=== PATIENT | female | born 1945 | race Caucasian/White ===

== ENCOUNTER → 2016-04-15 | Day surgery (SDC) | payer MEDICARE ==
--- NOTE | 2016-04-07 20:51 | HP ---
CC: Dr. Haroldo MD at [facility] and to [facility] PREOPERATIVE HISTORY AND PHYSICAL: DATE OF PREOPERATIVE HISTORY AND PHYSICAL EXAMINATION: 04/06/16 DATE OF ADMISSION: This patient is scheduled for Same-Day Surgery admission by Dr. Zarco on , 04/15/16. ATTENDING SURGEON: Girma Zarco MD (dictated by Zenia Velazquez NP) CHIEF COMPLAINT: Umbilical hernia. HISTORY OF PRESENT ILLNESS: The patient is a 70-year-old female referred to Dr. Zarco from [facility] for evaluation of an umbilical hernia. The patient states that she first notice d discomfort in the umbilical region when she was leaning against her kitchen counter. It has becom e increasingly painful, but she denies any signs or symptoms to suggest incarceration or strangulati on. She denies any chronic constipation or trauma to the umbilical region. Dr. Zarco examined the patient and notes an obvious umbilical hernia approximately 2 to 3 cm in diameter that is soft and reducible and mildly tender. Dr. Zarco has recommended open repair of the umbilical hernia with me as a Same-Day Surgery procedure and has discussed the nature of the surgical procedure, the relev ant risks, benefits, and alternatives, and today I reviewed the expected the postoperative care and recovery. The patient has had a chance to ask questions and stated that she understands the informa tion and is satisfied with the answers given to her questions. She will sign surgical consent on day of surgery. PAST MEDICAL HISTORY: Significant for obesity, type 2 diabetes, iron-deficiency anemia, left breast cancer, essential tremor, gastroesophageal reflux disease, anxiety, hyperlipidemia, and hypothyroid ism. PAST SURGICAL HISTORY: Total abdominal hysterectomy, bilateral salpingo- oophorectomy in 1993; left breast lumpectomy, wide local excision with sentinel lymph node biopsy for left breast cancer [address] Zarco, treated with radiation therapy; and excisional debridement of left breast infection and 2010. MEDICATIONS: 1. Metformin 1000 mg p.o. daily in the morning. 2. Lisinopril 5 mg p.o. daily. 3. Fluoxetine 40 mg p.o. daily. 4. Pravastatin 80 mg one-half tablet p.o. daily. 5. Poly-Iron supplement 150 mg p.o. daily. 6. Vitamin D2 2000 international units daily. 7. Furosemide 20 mg one-half tablet p.o. daily. 8. Levothroid 50 mcg p.o. daily. 9. Xanax 0.5 mg b.i.d. p.r.n. She typically takes it once a day. 10. Primidone 250 mg p.o. daily. 11. Multivitamin p.o. daily. 12. Glucosamine and chondroitin supplement daily and fish oil supplement daily, calcium plus vitami n D supplement daily. ALLERGIES: PENICILLIN has caused swelling. FAMILY HISTORY: No known anesthesia complications, bleeding tendencies, or clotting disorders. SOCIAL HISTORY: She is . 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 She is a nonsmoker. She denies the use of alcohol or other substances. REVIEW OF SYSTEMS: She denies any history of myocardial infarction. She denies any chest pain, pre ssure or palpitations. She was experiencing edema of the lower extremities, which has responded wel l to furosemide. She denies any unusual shortness of breath. She denies any history of deep vein t hrombosis or pulmonary embolism. She denies any previous anesthesia complications. She denies any bleeding tendencies and has never received a blood transfusion. She denies any chronic constipation . She denies any dysuria. PHYSICAL EXAMINATION GENERAL SURVEY: The patient is a 70-year-old obese female, in no acute distress. VITAL SIGNS: Height 64 inches, weight 260 pounds, blood pressure 138/82, pulse 80 and regular, resp iratory rate 20, and temperature 98.6 tympanic. HEENT: Benign. NECK: Supple. No cervical lymphadenopathy. No carotid bruits. LUNGS: Breath sounds bilaterally clear and equal. HEART: Regular rate and rhythm. No murmurs or rubs appreciated. ABDOMEN: Obese. Active bowel sounds. Soft and nondistended. Obvious supraumbilical hernia, reduc ible in the supine position. Soft and mildly tender. Approximately 2 to 3 cm defect. No other obvi ous masses or organomegaly, but exam is limited by body habitus. EXTREMITIES: Warm without edema or skin ulceration. BACK: No CVA tenderness. PELVIC AND RECTAL: Exams deferred. NEUROLOGIC: Alert and oriented x3. Steady gait. SKIN: Warm, dry, and intact. IMPRESSION: Umbilical hernia. PLAN: Same-Day Surgery admission to Dr. Zarco's service on , 04/15/16 for open umbilical h ernia repair with mesh. ZENIA VELAZQUEZ, TOLL MECHANIC [id number]/[facility] #: [id number]
[~2016-04-15] MED LIST: Buffered Lidocaine 1% SYR 3ML* 3 ML/SYR SYRINGE INTRADERM ONE; Buffered Lidocaine 1% SYR 3ML* 3 ML/SYR SYRINGE ONE; Bupivacaine 0.5% W/EPI SDV* 30 ML VIAL ONE; Clindamycin 900 MG IVPREMIX(* 900 MG/50 ML SDV IV ONE; Ketorolac INJ* 30 MG/ML 1 ML VIAL IV PUSH PRN; Lidocaine 1% INJ* 10 MG/ML 30 ML SDV ONE; Midazolam* 1 MG/ML 2 ML VIAL (2 MG) ONE; Ondansetron INJ* 2 MG/ML VIAL IV PRN; fentaNYL* 50 MCG/ML 2 ML VIAL (100 MCG VIAL) ONE; oxyCODONE/Acetamin 5/325 MG* TAB PO PRN
[2016-04-15 15:28] VITALS: BP 143/67
--- NOTE | 2016-04-15 21:11 | CONS ---
CONSULTATION REPORT: DATE OF CONSULT: 04/15/16 PRIMARY CARE PHYSICIAN: Dr. Kulkarni. PHYSICIAN REQUESTING CONSULTATION: Dr. Zarco. REASON FOR CONSULTATION: Postoperative near syncope. CHIEF COMPLAINT: Weakness. HISTORY OF PRESENT ILLNESS: Mrs. Stovall is a 70-year-old female status post local anesthesia with general anesthesia including Versed and fentanyl for umbilical hernia repair performed by Dr. Zarco today. The patient's surgeon stated that the patient received a dose of 4 mg of IV Versed and 100 mcg of fentanyl total as well as local anesthesia for the hernia repair. She did very well intraoperatively and postoperatively. Postoperatively, she also was not markedly sedated but when she stood up and attempted to go to the bathroom, she felt weak and she felt like her "eyes are rolling back." As per the report that I got from Dr. Zarco and the nursing staff in PACU, the patient's orthostatic blood pressure was unremarkable and the patient did not have orthostatic hypotension and I do not have the specific numbers recorded. I am seeing the patient in regards to this episode of near syncope. The patient stated that she just feels generalized weakness and felt like lying down. She denied localized weakness. Her speech had been clear. She denies any chest pain or shortness of breath. She did not lose consciousness. PAST MEDICAL HISTORY: 1. History of obesity with a BMI of 41. 2. Diabetes type 2. 3. Iron deficiency anemia. 4. History of left breast cancer status post lumpectomy and radiation treatment under the care of Dr. George. 5. History of essential tremor. 6. Anxiety. 7. Gastroesophageal reflux disease. 8. Hyperlipidemia. 9. Hypothyroidism. 10. History of total abdominal hysterectomy and bilateral salpingo- oophorectomy. MEDICATIONS: Prior to the patient's surgery included, 1. Metformin 1000 mcg daily. 2. Lisinopril 5 mg daily. 3. Fluoxetine 40 mg daily. 4. Pravastatin 80 mg daily. 5. Iron supplement 160 mg daily. 6. Vitamin D3 at 2000 units daily. 7. Furosemide 20 mg, the patient takes half of a tablet, which is 10 mg daily. 8. Levothyroxine 50 mcg daily. 9. Xanax 0.5 mg b.i.d. p.r.n. 10. Primidone 250 mg daily. 11. Multivitamin 1 tablet daily. 12. Glucosamine with chondroitin daily. ALLERGIES: PENICILLIN caused "swelling." FAMILY HISTORY: Reviewed and noncontributory. SOCIAL HISTORY: The patient denies any tobacco, alcohol, or drug use. She lives with her who is her surrogate. 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 REVIEW OF SYSTEMS: The patient denies any pain. She feels that her head is "heavy." She denies weakness. The patient denies any chest pain or shortness of breath. All of the remaining 14 systems were reviewed with the patient and were otherwise negative. PHYSICAL EXAMINATION: Vital Signs: Blood pressure 155/66, heart rate of 61 and regular, respiratory rate 16, oxygen saturation is 100% on 2 L oxygen nasal cannula, temperature 96.8. General: The patient is a very pleasant 70-year- old female who is obese. The patient is in no acute distress. The patient is alert and oriented x3. She occasionally drifts off to sleep. HEENT: Head: Atraumatic, normocephalic. Eyes: Pupils are equal and reactive to light and accommodation. Oropharynx is clear. Mucosa moist. Neck: Supple, no JVD, no bruits bilaterally. Respiratory: Clear to auscultation bilaterally. Cardiovascular: Regular rate and rhythm, no murmur. Abdomen: Soft and nontender. Bowel sounds are present in all 4 quadrants. Midline incision was not evaluated. There was a dressing of a approximately 4 x 4 inches in the area. The patient also wears a binder that was removed for the evaluation. Extremities: There is trace pedal edema. Pulses +2 bilaterally. There is no clubbing or cyanosis. Psychiatric: The patient appears slightly sedated. No evidence of anxiety or depression. Neurological: Speech clear. Cranial nerves II through XII are grossly intact. Motor strength is 5/5 bilaterally. [id number] is not dysmetric and within normal limits bilaterally. I did not check ambulation during the patient's evaluation. LABORATORY/DIAGNOSTIC DATA: Available to me from today, none. EKG reviewed by myself showed sinus bradycardia with heart rate 66 beats per minute with normal axis. No ST changes. That was compared to the EKG from the end of March 2016, which apart from sinus bradycardia does not have any marked new abnormalities noted. ASSESSMENT AND PLAN: Mrs. Stovall is a 70-year-old female who received Versed and fentanyl preoperatively. Currently, she had an episode of near syncope approximately an hour prior to my evaluation. She appears still slightly sedated and I suspect that her near syncope was related to the effect of her anesthesia medications. There is no evidence of focal weakness to suggest a stroke. She does have slight sinus bradycardia but her systolic pressures had been in a good range. Otherwise, she is hemodynamically stable and she has not been complaining of chest pain or shortness of breath to suggest that any further cardiac evaluation is needed. I discussed the case with Dr. Zarco, the patient's surgeon. On the basis of available data, I suspect that the patient's near syncope is related to anesthesia. I asked Dr. Zarco to call back our service if any other questions appear or problems arise. CC: Dr. Zarco; Dr. Kulkarni* [id number]/[facility] #: [id number] [facility]
--- NOTE | 2016-04-16 07:18 | OP ---
CC: Girma Zarco MD; Dr. Mariusz Kulkarni OPERATIVE REPORT: DATE OF OPERATION: 04/15/16 DATE OF : 49 SURGEON: Girma Zarco MD PROP CUTTER: DAYANA Kimball ANESTHESIOLOGIST: Dr. Pearson. ANESTHESIA: LMAC anesthesia. PRE-OP DIAGNOSIS: Supraumbilical ventral hernia. POST-OP DIAGNOSIS: Supraumbilical ventral hernia. OPERATIVE PROCEDURE: Open repair of supraumbilical ventral hernia with mesh. DESCRIPTION OF PROCEDURE: The patient was supine on the operating room table. After adequate intrav enous sedation, compression stockings, Noah Hugger warmer, and intravenous antibiotics, the abdomen was prepped with antiseptic and draped in a sterile fashion. Supraumbilical incision was created ap proximately 5 cm in length and a hernia of about 4 to 5 cm was identified. This went down to a neck of about 2 cm. I actually had to expand the fascial defect to about 3 cm to get the hernia reduced . The preperitoneal plane was then well developed. The previous umbilical hernia repair was intact . Sutures were identified in that site. A 6.4 cm underlay patch was put into place and sutured up underneath using 6 sutures of 0 Vicryl. The fascia was then closed over top. Adipose was reapproxim ated with 3-0 Vicryl and skin with 5-0 Vicryl followed by Steri-Strips. She tolerated the procedure well, was brought to Recovery in good condition. No complications. No drains. No pathologic spec imens. Sponge and instrument counts correct. ESTIMATED BLOOD LOSS: 10 mL. [id number]/[facility] #: [id number]
== END | disposition home or self-care (01) ==
LOC: OR 08:38
PROVIDERS: ATTEND Surgery
DX: K43.9 Ventral hernia without obstruction or gangrene (principal); E66.9 Obesity, unspecified; K21.9 Gastro-esophageal reflux disease without esophagitis; E11.9 Type 2 diabetes mellitus without complications; F41.9 Anxiety disorder, unspecified; Z88.0 Allergy status to penicillin; R00.1 Bradycardia, unspecified; Z68.41 Body mass index [BMI] 40.0-44.9, adult; D50.9 Iron deficiency anemia, unspecified; Z85.3 Personal history of malignant neoplasm of breast; E78.5 Hyperlipidemia, unspecified; E03.9 Hypothyroidism, unspecified; Z79.84 Long term (current) use of oral hypoglycemic drugs
CPT/HCPCS: 93005; C1781; J2250; J3010

== ENCOUNTER 2016-07-01 20:35 | Observation (INO) | payer MEDICARE ==
[2016-07-01] MEDS ORDERED: Aspirin Low Dose CHEW TAB* 81 MG PO ONE (21:36)
[2016-07-01] MEDS ORDERED: Nitroglycerin TAB 0.4 MG* 0.4 MG TAB SL ONE (21:38)
--- NOTE | 2016-07-01 22:21 | RAD ---
Indication: Chest pain. Single frontal view of the chest performed at 2208 hours was reviewed. Comparison is made with previous exam dated . No mediastinal shift is noted. Heart is of normal size and configuration. Lung pizarro appear clear. IMPRESSION: NO ACTIVE CARDIOPULMONARY DISEASE IS NOTED.
[2016-07-01 22:36] LABS: Hematocrit 37 % (35-47); Hemoglobin 12.1 g/dl (12.0-16.0); Mean Corpuscular HGB Conc 33 g/dl (31-36); Mean Corpuscular Hemoglobin 30 pg (27-31); Mean Corpuscular Volume 92 fL (80-97); Mean Platelet Volume 8 um3 (7.4-10.4); Red Blood Count 3.97 10^6/ul (4.0-5.4); Red Cell Distribution Width 15 % (10.5-15); White Blood Count 6.1 10^3/ul (3.5-10.8)
[2016-07-01 22:45] LABS: Albumin 3.8 g/dL (3.2-5.2); BUN/Creatinine Ratio 15.2 (8-20); Calcium 9.2 mg/dL (8.6-10.3); EGFR African American 93.1 (>60); EGFR Non-African American 72.4 (>60); Globulin 3.2 g/dL (2-4); Potassium 3.8 mmol/L (3.5-5.0); Total Bilirubin 0.2 mg/dL (0.2-1.0)
[2016-07-01 22:47] LABS: Troponin I 0.01 ng/mL (<0.04)
[2016-07-01] MEDS ORDERED: Nitroglycerin 0.4 MG/HR PATCH* (10 MG) TRANSDERM ONE (23:04)
--- NOTE | 2016-07-01 23:15 | HP ---
H&P (Free Text) History and Physical: PCP: Nick Kulkarni MD Date/Time of Evaluation: 07/01/2016 5303 CC: chest pain HPI: Mrs Stovall is a 70YO morbidly obese female HX breast CA, DM2, HTN, & HLD who developed non-exertional, non-radiating dull substernal chest discomfort for lasting 2 hours last night before spontaneously subsiding. There was no SOB, sweating, emesis, palpitations, or light-headedness associated. She has had issues lately with nausea, but no worsening. She was seen by her PCP today for a routine diabetic check up who when hearing this advised her to present to the ED for further evaluation. She states she has been having pain in her R bruce since Tuesday which she attributed to new shoes, but denies any change in swelling. ED evaluation is essentially negative. PMedHx DM2 breast CA HLD morbid obesity hypothyroidism iron deficiency anemia essential tremor GERD Allergies Penicillins Allergy (Severe, Verified 04/15/16 09:13) SWELLING, EXTREME NAUSE/VOMITING tomatoes Allergy (Severe, Uncoded 04/15/16 09:13) GI Upset burning Ambulatory Orders Nursing to reconcile. 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 FamHx: positive for HTN, HLD, DM2, & MS ROS: as above, otherwise reviewed and all were negative Constitutional: NAD, normally developed, morbidly obese white female vitals: Vital Signs Temp 36.3 C 07/01/16 20:37 Pulse 62 07/01/16 23:00 Resp 14 07/01/16 23:00 BP 140/64 07/01/16 23:00 Pulse Ox 97 07/01/16 23:00 Intake & Output 06/30/16 07/01/16 07/01/16 23:59 11:59 23:59 Weight 113.852 kg HEENM: atraumatic; sclera/conjunctiva: non-icteric/clear; hearing: clinically intact; oropharynx: clear, mucosa moist Neck: soft tissue: non-tender; thyroid: normal Pulmonary: clear to auscultation bilaterally, good aeration, no accessory muscle use CV: RR/RR, normal S1S2, no carotid bruit, no jugular venous distention, 2+ B DP/ PT, no edema Abdominal: soft, non-distended, non-tender, no rebound/guarding/rigidity, normoactive bowel sounds, no hepatosplenomegaly or masses, no costovertebral angle tenderness Musculoskeletal: general: grossly intact; gait: stable; negative calf tenderness B, negative Gretchen's B Integumental: normal appearance and texture of exposed skin Psychiatric orientation: AA&O to PPS affect: calm mood: cooperative eye contact: good content: reliable responses: timely insight: good Testing: Lab Results 07/01/16 07/01/16 07/01/16 Range/Units 22:15 22:15 22:15 WBC 6.1 (3.5-10.8) 10^3/ul RBC 3.97 L (4.0-5.4) 10^6/ul Hgb 12.1 (12.0-16.0) g/dl Hct 37 (35-47) % MCV 92 (80-97) fL MCH 30 (27-31) pg MCHC 33 (31-36) g/dl RDW 15 (10.5-15) % Plt Count 230 (150-450) 10^3/ul MPV 8 (7.4-10.4) um3 Neut % (Auto) 51.1 (38-83) % Lymph % (Auto) 36.1 (25-47) % Logan % (Auto) 9.8 H (1-9) % Eos % (Auto) 2.3 (0-6) % Baso % (Auto) 0.7 (0-2) % Absolute Neuts (auto) 3.1 (1.5-7.7) 10^3/ul Absolute Lymphs (auto) 2.2 (1.0-4.8) 10^3/ul Absolute Monos (auto) 0.6 (0-0.8) 10^3/ul Absolute Eos (auto) 0.1 (0-0.6) 10^3/ul Absolute Basos (auto) 0 (0-0.2) 10^3/ul Absolute Nucleated RBC 0 10^3/ul Nucleated RBC % 0 Sodium 135 (133-145) mmol/L Potassium 3.8 (3.5-5.0) mmol/L Chloride 99 L (101-111) mmol/L Carbon Dioxide 29 (22-32) mmol/L Anion Gap 7 (2-11) mmol/L BUN 12 (6-24) mg/dL Creatinine 0.79 (0.51-0.95) mg/dL Est GFR ( Amer) 93.1 (>60) Est GFR (Non-Af Amer) 72.4 (>60) BUN/Creatinine Ratio 15.2 (8-20) Glucose 190 H (70-100) mg/dL Lactic Acid 1.8 (0.5-2.0) mmol/L Calcium 9.2 (8.6-10.3) mg/dL Total Bilirubin 0.20 (0.2-1.0) mg/dL AST 17 (13-39) U/L ALT 16 (7-52) U/L Alkaline Phosphatase 53 (34-104) U/L Troponin I 0.01 (<0.04) ng/mL Total Protein 7.0 (6.4-8.9) g/dL Albumin 3.8 (3.2-5.2) g/dL Globulin 3.2 (2-4) g/dL Albumin/Globulin Ratio 1.2 (1-3) ECG, personally reviewed: NSR rate 63, inverted T in III, unchanged from 2016 comparison CXR, personally reviewed: IMPRESSION: NO ACTIVE CARDIOPULMONARY DISEASE IS NOTED. Impression: 70F HX DM2, HLD, morbid obesity, & breast CA present with chest pain for r/o PE/ACS DIAGNOSIS & PLAN Primary chest pain r/o PE/ACS : obtain CTA chest : telemetry : trend troponin : aspirin : metoprolol : supplemental oxygen : chemical NST in AM : supportive care Secondary DM2 : check A1c : basal/correctional insulin protocol : NPO after midnight for cNST : insulin carb ratio diet w/ bolus insulin added when taking PO HX breast CA : continue outpatient follow up HTN : review meds once reconciled HLD : heart healthy diet when taking PO hypothyroidism : review meds once reconciled iron deficiency anemia : periodic monitoring GERD : PO omeprazole Admission Rational: CDU observation for r/o PE/ACS DVTp: heparin SQ & SCDs Code Status: full HCP:
[2016-07-01] MEDS ORDERED: oxyCODONE TAB* 5 MG TAB PO PRN (23:27)
[2016-07-01] MEDS ORDERED: Melatonin (NF) 3 MG TAB PO PRN (23:27)
[2016-07-01] MEDS ORDERED: Ondansetron INJ* 2 MG/ML VIAL IV PRN (23:27)
[2016-07-01] MEDS ORDERED: Morphine INJ* 2 MG/ML 1 ML SYRINGE IV PRN (23:27)
[2016-07-01] MEDS ORDERED: traMADol TAB* 50 MG PO PRN (23:27)
[2016-07-01] MEDS ORDERED: Acetaminophen TAB* 325 MG PO PRN (23:27)
[2016-07-01] MEDS ORDERED: NS 0.9% 1000 ML* 1,000 ML IV SCH (23:30)
[2016-07-02] MEDS ORDERED: Metoprolol Succinate XL TAB* 25 MG PO ONE (00:26)
[2016-07-02] MEDS ORDERED: Iodixanol* (CONTRAST) 320 MG/ML 100 ML SDV IV ONE (00:57)
[2016-07-02] MEDS: Insulin LISPRO* 1 UNITS UNIT SUBCUT SCH ×4 (01:54→13:07)
[2016-07-02] MEDS ORDERED: Omeprazole CAP* 20 MG PO SCH (06:00)
[2016-07-02] MEDS ORDERED: Heparin VIAL(*) 5000 UNITS/ML VIAL (FIVE THOUSAND) SUBCUT SCH (06:00)
--- NOTE | 2016-07-02 06:13 | PN ---
Progress Note - Progress Note Note: CTA negative for PE, R hilar adenopathy noted which will need outpatient surveillance/work up.
--- NOTE | 2016-07-02 07:58 | RAD ---
HISTORY: Chest pain, cancer COMPARISONS: None TECHNIQUE: Multiple contiguous axial CT scans of the chest were obtained after the administration of nonionic intravenous contrast, timed to the pulmonary arterial phase of contrast enhancement.. Coronal and sagittal multiplanar reformations are also submitted for review. FINDINGS: NECK AND THYROID: The lower neck and thyroid are unremarkable. CHEST WALL: There is no lower cervical, axillary, or supraclavicular lymphadenopathy by size criteria. There is postsurgical change to the left breast HEART AND PERICARDIUM: The heart is unremarkable. AORTA AND PULMONARY VASCULATURE: There is no pulmonary arterial filling defect to suggest pulmonary embolism. There is no linear filling defect within the aorta to suggest aortic dissection. MEDIASTINUM: There are enlarged prevascular lymph nodes measuring up to 1.1 cm. FRANCISCO: There are bilateral hilar lymph nodes. On the right, these measure up to 1.5 cm in short axis. AIRWAY AND ESOPHAGUS: The airway is unremarkable, without endobronchial filling defect. The esophagus is grossly normal. LUNG PARENCHYMA: The lungs are clear. PLEURA: No pleural abnormalities are noted. UPPER ABDOMEN: The upper abdomen is unremarkable. BONES AND SOFT TISSUES: No bone or soft tissue abnormalities are noted. OTHER: None. IMPRESSION: 1. NO PULMONARY ARTERIAL FILLING DEFECT TO SUGGEST PULMONARY EMBOLISM. 2. HILAR AND MEDIASTINAL LYMPHADENOPATHY
[2016-07-02 08:10] VITALS: BP 126/61
[2016-07-02] MEDS ORDERED: Docusate CAP* 100 MG PO SCH (09:00)
[2016-07-02] MEDS ORDERED: Regadenoson* 0.4 MG/5 ML SYRINGE ONE (10:50)
[2016-07-02] MEDS ORDERED: Aminophylline IV* 25 MG/ML 10 ML VIAL ONE (10:50)
--- NOTE | 2016-07-02 12:50 | RAD ---
HISTORY: Chest pain, diabetes, hypertension, hyperlipidemia, obesity COMPARISONS: None TECHNIQUE: A 1 day stress/rest myocardial perfusion study was performed, with pharmacologic stress. The stress portion was monitored by Dr. aMrtinez. Gated SPECT imaging was performed, with CT-based attenuation correction DOSE: Stress: Technetium 99m tetrofosmin, 25.2 millicuries, injected at 11:14 AM on July 02, 2016 Rest: Technetium 99m tetrofosmin, 10.19 millicuries, injected at 7:59 AM on July 02, 2016 Pharmacologic agent: Lexiscan FINDINGS: CARDIAC MONITORING: No EKG changes of ischemia with stress EF: 75 % TID: 1.15 MOTION: Normal motion, with normal wall thickening. PERFUSION: There are no fixed or reversible perfusion defects. OTHER: None IMPRESSION: NO FIXED OR REVERSIBLE PERFUSION DEFECTS ASSESSMENT: LOW RISK. Based on imaging criteria from ACC/AHA 2002. Guideline Update for the Management of Patient's with Chronic Stable Angina, table 23. Noninvasive Risk Stratification.
--- NOTE | 2016-07-02 12:50 | RAD ---
HISTORY: Chest pain, diabetes, hypertension, hyperlipidemia, obesity COMPARISONS: None TECHNIQUE: A 1 day stress/rest myocardial perfusion study was performed, with pharmacologic stress. The stress portion was monitored by Dr. Martinez. Gated SPECT imaging was performed, with CT-based attenuation correction DOSE: Stress: Technetium 99m tetrofosmin, 25.2 millicuries, injected at 11:14 AM on July 02, 2016 Rest: Technetium 99m tetrofosmin, 10.19 millicuries, injected at 7:59 AM on July 02, 2016 Pharmacologic agent: Lexiscan FINDINGS: CARDIAC MONITORING: No EKG changes of ischemia with stress EF: 75 % TID: 1.15 MOTION: Normal motion, with normal wall thickening. PERFUSION: There are no fixed or reversible perfusion defects. OTHER: None IMPRESSION: NO FIXED OR REVERSIBLE PERFUSION DEFECTS ASSESSMENT: LOW RISK. Based on imaging criteria from ACC/AHA 2002. Guideline Update for the Management of Patient's with Chronic Stable Angina, table 23. Noninvasive Risk Stratification.
[2016-07-02] MEDS ORDERED: Insulin GLARGINE(*) 1 UNITS UNIT SUBCUT SCH (21:00)
--- NOTE | 2016-07-03 04:44 | DS ---
DISCHARGE SUMMARY: DATE OF ADMISSION: 07/01/16 DATE OF DISCHARGE: 07/02/16 PRIMARY CARE PROVIDER: Dr. Mariusz Kulkarni. PRIMARY DIAGNOSIS: Chest pain. SECONDARY DIAGNOSES: Include: 1. Type 2 diabetes. 2. History of breast cancer. 3. Hyperlipidemia. 4. Morbid obesity. 5. Hypothyroidism. 6. Gastroesophageal reflux disease. 7. Anxiety. 8. Hilar and mediastinal lymphadenopathy. MEDICATIONS ON DISCHARGE: Include: 1. Metformin 1000 mg daily. 2. Furosemide 10 mg in the morning. 3. Prozac 40 mg daily. 4. Vitamin D2 2000 units daily. 5. Xanax 0.5 mg twice daily as needed. 6. Multivitamin 1 tab daily. 7. Lisinopril 5 mg daily. 8. Synthroid 50 mcg in the morning. 9. Glucosamine chondroitin 1 tab daily. 10. Primidone 250 mg at bedtime. 11. Pravachol 40 mg at bedtime. PERTINENT LABORATORY DATA: 1. Notable for troponin I 0.01 on 3 consecutive checks. 2. Hemoglobin A1c 9.3%. PERTINENT PROCEDURES PERFORMED DURING HOSPITAL STAY: Include chemical stress test with nuclear imaging: EF 75%, TID 1.15. Impression: No fixed or reversible perfusion defect. Assessment: Low risk. HISTORY OF PRESENT ILLNESS AND HOSPITAL COURSE: This is a 70-year-old female with past medical history as outlined in the history of present illness on the day of admission, presented to the hospital one day after experiencing chest pain and being seen by her primary care provider. In the emergency room, she underwent a CTA of her chest which was negative for pulmonary embolism, but did note hilar and mediastinal lymphadenopathy. She remains chest pain free during the course of the hospital stay, received chemical stress test with nuclear imaging, which was interpreted as low risk as above. Unclear etiology with prolonged chest pain leading up to the hospital stay, but cardiac remains lower on the list status post normal stress test with normal EKG and nominal troponin elevation to 0.01. No medication changes are made. Results of stress test were discussed with the patient. FOLLOWUP INSTRUCTIONS: At followup, please: 1. Follow up on CT findings. The patient may benefit from repeat chest CT in the future to evaluate for resolution versus further evaluation and biopsy from Pulmonology. 2. If chest pain recurs, consider additional testing including evaluation of sleep apnea, EGD, or further management for depression and anxiety. Reasons to return to the hospital include but not limited to recurrent or worsening symptoms including chest pain despite normal stress test, shortness of breath, lightheadedness, loss of consciousness, nausea, vomiting, bleeding from any source, inability to obtain or tolerate medications, were discussed with the patient. She acknowledged understanding. TIME SPENT: Greater than 40 minutes was spent on discharging the patient, greater than half was spent [id number] with the patient. CC: Dr. Mariusz Kulkarni* [id number]/[facility] #: [id number] [facility]
--- NOTE | 2016-07-03 15:22 | ED ---
Nam Gonzales Alok, scribed for Burke Kerr MD on 07/01/16 at 2159 . HPI Chest Pain - HPI Summary HPI Summary: 70 y/o female with DM presents to the ED today for chest tightness and nausea for the past few months. Pt states that chest pain is like a dull pain that comes and goes, last experienced last night accompanied by tachycardia. Pt also adds LE edema. Pt denies any fever, diaphoresis, chills, coughs, vomiting or SOB. PSHx includes no stents or cardiac surgery. Pt states that currently her CP is milder than before but still a dull pain. Pt denies any tobacco or ETOH use but does state feelings of anxiety. - History of Current Complaint Chief Complaint: EDChestPainROMI Time Seen by Provider: 07/01/16 21:34 Hx Obtained From: Patient Onset/Duration: Started Weeks Ago, Atraumatic, Still Present Timing: Intermittent Initial Severity: Moderate Current Severity: Moderate Pain Intensity: 2 Pain Scale Used: 0-10 Numeric Chest Pain Location: Mid Sternal Chest Pain Radiates: No Character: Dull/Aching Aggravating Factor(s): Nothing Alleviating Factor(s): Nothing Associated Signs and Symptoms: Positive: Chest Pain, Edema. Negative: Shortness of Breath, Fever, Chills, Diaphoresis, Cough, Vomiting - Allergy/Home Medications Allergies/Adverse Reactions: Allergies Allergy/AdvReac Type Severity Reaction Status Date / Time Penicillins Allergy Severe SWELLING, Verified 04/15/16 09:13 EXTREME NAUSE/VOMITING tomatoes Allergy Severe GI Upset Uncoded 04/15/16 09:13 PMH/Surg Hx/FS Hx/Imm Hx Endocrine/Hematology History: Reports: Hx Diabetes, Hx Thyroid Disease, Hx Anemia - on iron Cardiovascular History: Reports: Hx Hypertension - on meds, Other Cardiovascular Problems/Disorders - high cholesterol GI History: Reports: Other GI Disorders - umbilical hernia surgery Musculoskeletal History: Reports: Hx Arthritis - knees Denies: Hx Rheumatoid Arthritis, Hx Osteoporosis Sensory History: Reports: Hx Cataracts - starting, Hx Contacts or Glasses Denies: Hx Hearing Aid Opthamlomology History: Reports: Hx Cataracts - starting, Hx Contacts or Glasses Neurological History: Reports: Hx Nerve Disease - essential tremors Psychiatric History: Reports: Hx Anxiety - Cancer History Hx Chemotherapy: No Hx Radiation Therapy: Yes - BREAST 2009 - Surgical History Surgery Procedure, Year, and Place: TUBAL LIGATION-1982;HYSTERECTOMY-1998;LEFT BREAST LUMPECTOMY-2008 Hx Anesthesia Reactions: No Infectious Disease History: Yes Infectious Disease History: Denies: Traveled Outside the [place] in Last 30 Days - Family History Known Family History: Positive: Other - Yes - Breast Cancer (Mother - Social History Occupation: Employed Full-time Lives: With Family - Alcohol Use: None Substance Use Type: Reports: None Smoking Status (MU): Never Smoked Tobacco Review of Systems Negative: Fever, Chills, Skin Diaphoresis Negative: Erythema Negative: Sore Throat Positive: Chest Pain Negative: Shortness Of Breath, Cough Negative: Abdominal Pain, Vomiting, Nausea Negative: dysuria, hematuria Positive: Edema. Negative: Myalgia Negative: Rash Neurological: Other - Negative: Dizziness Positive: Anxious All Other Systems Reviewed And Are Negative: Yes Physical Exam - Summary Physical Exam Summary: Constitutional: Well-developed, Well-nourished, Alert. (-) Distressed Skin: Warm, Dry HENT: Normocephalic; Atraumatic Eyes: Conjunctiva normal Neck: Musculoskeletal ROM normal neck. (-) JVD, (-) Stridor, (-) Tracheal deviation Cardio: Rhythm regular, rate normal, Heart sounds normal; Intact distal pulses; The pedal pulses are 2+ and symmetric. Radial pulses are 2+ and symmetric. (-) Murmur Pulmonary/Chest wall: Effort normal. (-) Respiratory distress, (-) Wheezes, (-) Rales Abd: Soft, (-) Tenderness, (-) Distension, (-) Guarding, (-) Rebound Musculoskeletal: (-) Edema Lymph: (-) Cervical adenopathy Neuro: Alert, Oriented x3 Psych: Mood and affect Normal Triage Information Reviewed: Yes Vital Signs On Initial Exam: Initial Vitals Temp Pulse Resp BP Pulse Ox 97.4 F 71 18 166/64 100 07/01/16 20:37 07/01/16 20:37 07/01/16 20:37 07/01/16 20:37 07/01/16 20:37 Vital Signs Reviewed: Yes Diagnostics - Vital Signs Vital Signs Temp Pulse Resp BP Pulse Ox 07/01/16 20:37 97.4 F 71 18 166/64 100 - Laboratory Result Diagrams: 07/01/16 22:15 07/01/16 22:15 Lab Statement: Any lab studies that have been ordered have been reviewed, and results considered in the medical decision making process. - Radiology CXR Xray Interpretation: Positive (See Comments) - IMPRESSION: NO ACTIVE CARDIOPULMONARY DISEASE Radiology Interpretation Completed By: Radiologist - CT CTA Chest CT Interpretation: Positive (See Comments) - IMPRESSION: NO PULMONARY EMBOLISM IDENTIFIED. RIGHT HILAR ADENOPATHY NOTED. CT Interpretation Completed By: Radiologist - EKG 2046 Cardiac Rate: NL EKG Rhythm: Sinus Rhythm - 63 bpm EKG Interpretation: No STEMI Chest Pain Course/Dx - Diagnoses Provider Diagnoses: Chest pain, unspecified - Provider Notifications Discussed Care Of Patient With: Dr Toure (Hospitalist) @ 4048 - He requests CTA due to CA Hx. Agreed to admit. Discharge - Discharge Plan Condition: Stable Disposition: ADMITTED TO [facility] The documentation as recorded by the Nam zaidi Alok accurately reflects the service I personally performed and the decisions made by , Burke Kerr MD.
== END 2016-07-02 14:35 | disposition home or self-care (01) ==
LOC: ED 20:35 → MEDTELE 23:12
PROVIDERS: ADMIT Hospitalist; ATTEND Internal Medicine
DX: R07.9 Chest pain, unspecified (principal); E11.9 Type 2 diabetes mellitus without complications; E78.5 Hyperlipidemia, unspecified; K21.9 Gastro-esophageal reflux disease without esophagitis; E66.01 Morbid (severe) obesity due to excess calories; Z85.3 Personal history of malignant neoplasm of breast; E03.9 Hypothyroidism, unspecified; R59.1 Generalized enlarged lymph nodes; I51.7 Cardiomegaly; R00.1 Bradycardia, unspecified; Z79.84 Long term (current) use of oral hypoglycemic drugs; D50.9 Iron deficiency anemia, unspecified; G25.0 Essential tremor; Z88.0 Allergy status to penicillin; Z79.899 Other long term (current) drug therapy
CPT/HCPCS: 36415; 71010; 71275; 78452; 80053; 83036; 83605; 84484; 85025; 93005; 93017; 96372; 96374; 96375; 99284; A9270-GY; A9502; G0378; J0280; J1644; J2270; J2405; J2785; Q9967

== ENCOUNTER 2018-02-15 07:29 | Day surgery (SDC) | payer MEDICARE ==
[~2018-02-15 07:29] MED LIST changes: +Acetaminophen TAB* 325 MG PO PRN; +Buffered Lidocaine 0.9% SYRIN* 5 ML/SYR SYRINGE INTRADERM ONE; -Buffered Lidocaine 1% SYR 3ML* 3 ML/SYR SYRINGE INTRADERM ONE; -Buffered Lidocaine 1% SYR 3ML* 3 ML/SYR SYRINGE ONE; -Bupivacaine 0.5% W/EPI SDV* 30 ML VIAL ONE; -Clindamycin 900 MG IVPREMIX(* 900 MG/50 ML SDV IV ONE; -Ketorolac INJ* 30 MG/ML 1 ML VIAL IV PUSH PRN; -Lidocaine 1% INJ* 10 MG/ML 30 ML SDV ONE; -Midazolam* 1 MG/ML 2 ML VIAL (2 MG) ONE; -Ondansetron INJ* 2 MG/ML VIAL IV PRN; -fentaNYL* 50 MCG/ML 2 ML VIAL (100 MCG VIAL) ONE; -oxyCODONE/Acetamin 5/325 MG* TAB PO PRN
[2018-02-15] MEDS ORDERED: Insulin LISPRO* 1 UNITS UNIT SUBCUT ONE (08:18)
[2018-02-15] MEDS ORDERED: Midazolam* 1 MG/ML 2 ML VIAL (2 MG) ONE (09:10)
[2018-02-15] MEDS ORDERED: fentaNYL* 50 MCG/ML 2 ML VIAL (100 MCG VIAL) ONE (09:10)
[2018-02-15 09:55] VITALS: BP 151/71
[2018-02-15] MEDS ORDERED: Ketorolac 0.5% OPHTH (NF) 0.5 % 5 ML BTL ONE (10:49)
[2018-02-15] MEDS ORDERED: acetaZOLAMIDE TAB* 250 MG ONE (10:49)
[2018-02-15] MEDS ORDERED: Povidone Iodine 5% OPTH* 30 ML BTL ONE (10:49)
[2018-02-15] MEDS ORDERED: Cyclopentolate 1% OPTH.SOL* 2 ML BTL ONE (10:49)
[2018-02-15] MEDS ORDERED: Proparacaine 0.5% OPHTH.SOL* 15 ML BTL ONE (10:49)
[2018-02-15] MEDS ORDERED: Phenylephrine 2.5% OPTH.SOL* 2 ML BTL ONE (10:49)
[2018-02-15] MEDS ORDERED: Lidocaine 2% EPI 1:200000 MPF*10-20 ML VIAL ONE (10:49)
[2018-02-15] MEDS ORDERED: Lidocaine 1%* 5 ML VIAL ONE (10:49)
[2018-02-15] MEDS ORDERED: Neomycin/Polymy/Dex OPTH.SUSP* MAXITROL 0.1% 5 ML ONE (10:49)
--- NOTE | 2018-02-15 11:31 | OP ---
DATE OF OPERATION: 02/15/2018. DATE OF : 1945. SURGEON: Fernando Wright M.D. PREOPERATIVE DIAGNOSIS: Cataract left eye. POSTOPERATIVE DIAGNOSIS: Cataract left eye. OPERATIVE PROCEDURE: Extracapsular cataract extraction with intraocular lens implant left eye. PROCEDURE: The patient was brought to the operating room after being given 1/2% Alcaine with epineph rine drops in the preoperative area. The eye was prepped and draped in the usual sterile fashion. S terile drape and eyelid speculum were placed. Again, topical 1/2% Alcaine with epinephrine was given . A paracentesis incision was made at the 3 o'clock position with the No.75 blade. Clear cornea inc ision 2.2 x 2.2-mm was created at the 6 o'clock position starting at the anterior limbus using the 2. 2-mm keratome. The anterior chamber was irrigated with 0.4 mL of 1% non-preservative intracameral li docaine and filled with DisCoVisc. A capsulorrhexis was completed using the cystotome and the Utrata forceps. Hydrodissection was performed with balanced salt solution. The lens nucleus was removed wi th the Phacoemulsification handpiece without incident. Cortex was removed with the irrigation-aspira tion handpiece. The capsular bag was re-inflated using DisCoVisc and an [id number] 20 implant was insert ed with the shooter. The irrigation-aspiration handpiece was used to remove all residual DisCoVisc. The eye was refilled with balanced salt solution and the wound checked and found to be watertight. Topical Maxitrol drops were given. [id number]/[facility] #: [id number]
== END 2018-02-15 10:10 | disposition home or self-care (01) ==
LOC: OREAST 07:29
PROVIDERS: ATTEND Specialist
DX: H25.812 Combined forms of age-related cataract, left eye (principal); H35.3132 Nonexudative age-related macular degeneration, bilateral, intermediate dry stage; Z88.0 Allergy status to penicillin; I10 Essential (primary) hypertension; E08.3293 Diabetes mellitus due to underlying condition with mild nonproliferative diabetic retinopathy without macular edema, bilateral; G25.0 Essential tremor; E03.9 Hypothyroidism, unspecified; M19.90 Unspecified osteoarthritis, unspecified site; F41.9 Anxiety disorder, unspecified
CPT/HCPCS: A9270-GY; J2250; J3010; V2632

== ENCOUNTER → 2018-02-22 06:45 | Day surgery (SDC) | payer MEDICARE ==
[~2018-02-22 06:45] MED LIST changes: +Cyclopentolate 1% OPTH.SOL* 2 ML BTL ONE; +Ketorolac 0.5% OPHTH (NF) 0.5 % 5 ML BTL ONE; +Lidocaine 1%* 5 ML VIAL ONE; +Lidocaine 2% EPI 1:200000 MPF*10-20 ML VIAL ONE; +Midazolam* 1 MG/ML 2 ML VIAL (2 MG) ONE; +Neomycin/Polymy/Dex OPTH.SUSP* MAXITROL 0.1% 5 ML ONE; +Phenylephrine 2.5% OPTH.SOL* 2 ML BTL ONE; +Povidone Iodine 5% OPTH* 30 ML BTL ONE; +Proparacaine 0.5% OPHTH.SOL* 15 ML BTL ONE; +acetaZOLAMIDE TAB* 250 MG ONE
[2018-02-22 08:39] VITALS: BP 160/69
--- NOTE | 2018-02-22 10:08 | OP ---
DATE OF OPERATION: 02/22/2018. DATE OF : 1945. SURGEON: Fernando Wright M.D. PREOPERATIVE DIAGNOSIS: Cataract right eye. POSTOPERATIVE DIAGNOSIS: Cataract right eye. OPERATIVE PROCEDURE: Extracapsular cataract extraction with intraocular lens implant right eye. PROCEDURE: The patient was brought to the operating room after being given 1/2% Alcaine with epineph rine drops in the preoperative area. The eye was prepped and draped in the usual sterile fashion. S terile drape and eyelid speculum were placed. Again, topical 1/2% Alcaine with epinephrine was given . A paracentesis incision was made at the 9 o'clock position with the No.75 blade. Clear cornea inc ision 2.2 x 2.2-mm was created at the 12 o'clock position starting at the anterior limbus using the 2 .2-mm keratome. The anterior chamber was irrigated with 0.4 mL of 1% non-preservative intracameral l idocaine and filled with DisCoVisc. A capsulorrhexis was completed using the cystotome and the Utrat a forceps. Hydrodissection was performed with balanced salt solution. The lens nucleus was removed w ith the Phacoemulsification handpiece without incident. Cortex was removed with the irrigation-aspir ation handpiece. The capsular bag was re-inflated using DisCoVisc and an SN60WF 20.5 implant was ins erted with the shooter. The irrigation-aspiration handpiece was used to remove all residual DisCoVis c. The eye was refilled with balanced salt solution and the wound checked and found to be watertight . Topical Maxitrol drops were given. [id number]/[facility] #: [id number]
== END | disposition home or self-care (01) ==
LOC: OREAST 06:45
PROVIDERS: ATTEND Specialist
DX: H25.811 Combined forms of age-related cataract, right eye (principal); H35.3132 Nonexudative age-related macular degeneration, bilateral, intermediate dry stage; H04.123 Dry eye syndrome of bilateral lacrimal glands; Z79.84 Long term (current) use of oral hypoglycemic drugs; E08.3293 Diabetes mellitus due to underlying condition with mild nonproliferative diabetic retinopathy without macular edema, bilateral; I10 Essential (primary) hypertension; Z88.0 Allergy status to penicillin; E03.9 Hypothyroidism, unspecified; G25.0 Essential tremor; F41.9 Anxiety disorder, unspecified
CPT/HCPCS: A9270-GY; J2250; V2632

== ENCOUNTER 2018-06-16 12:39 | Inpatient (IN) | payer MEDICARE ==
--- OUTSIDE RECORDS SUMMARY | 2018-06-16 13:16 | XMS REPORT | Continuity of Care Document ---
:1945 External Reference #:[id number] Author Name Cindy Yusuf Care Team Providers Name Role Phone Mariusz Kulkarni MD Primary Care Physician Unavailable Payers Date Identification Numbers Payment Provider Subscriber Effective: Policy Number: [id number] Medicare Blue Ppo Olinda Stovall 2013 Group Number: [id number] [address] [address] PayID: [id number] MIRNA Thorne [id number] Advance Directives Description No Information Available Problems Date Description Provider Status Onset: 01/23/2015 Essential tremor Mere Blakely M.D. Active Onset: 03/09/2018 Chronic fatigue syndrome Yoel eTe M.D. Active Onset: 03/09/2018 Abnormal involuntary movement Yoel Tee M.D. Active Family History Date Family Member(s) Observation Comments Father due to Diabetes () Father due to Cancer () Siblings 3 2-brothers with polio and one with MS 1-brother no current problems Social History Type Date Description Comments Sex Unknown Marital Status Lives With Spouse Occupation Works at the [employer] ETOH Use Denies alcohol use Tobacco Use Start: Unknown Patient has never smoked Smoking Status Reviewed: 06/16/18 Patient has never smoked Exercise Type/Frequency Exercises sporadically Allergies, Adverse Reactions, Alerts Date Description Reaction Status Severity Comments 01/23/2003 PCN Active rash,swelling Medications Medication Date Status Form Strength Qnty SIG Indications Ordering Provider Doxycycline 06/07/19 Active Tablets 100mg 30tab 1 by Z48.01 Girma Milner 19 s valentin Zarco M.D. twice a day Primidone 12/03/19 Active Tablets 50mg 720ta 6 tabs Yoel 17 bs by mouth Mary Tee every night as directed Ondansetron 04/22/19 Active Tablets 4mg 12tab one Lyla Pantoja 17 Dispers s tablet MD Rene dissolve d under the tongue every 6 hours as needed for nausea Xanax 01/23/20 Active Tablets 0.5mg 1 po bid Ben Tillman melisa Goode M.D. Fluoxetine HCL Active Capsules 20mg 90cap 2 po qd Unknown 00 s Levothroid Active Tablets 50mcg 30tab 1 po qd Unknown 00 s Lisinopril Active Tablets 5mg 30tab 1 po qd Unknown 00 s Multivitamins Active Tablets 90tab 1 po qd Unknown 00 s Pravastatin Active Tablets 40mg 30tab 1 tablet Unknown Sodium 00 s once daily at bedtime Furosemide Active Tablets 20mg 1-2 tab Unknown 00 by mouth every morning as needed Aleve Active Tablets 220mg as Unknown 00 needed Cyclobenzaprine Active Tablets 5mg 1 tab po Arthur, HCL 00 as Nohemi, needed APARTMENT LOCATOR Lantus Solostar Active Solution 100Unit/M 20 units Paddy, 00 Pen-Injec L Ekaterina chen ,CFNP Farxiga Active Tablets 5mg 1 by Unknown 00 mouth every day Doxycycline 05/24/19 Hx Capsules 100mg 14cap 1 po bid R53.81 Girma Arango Hyclate 19 - s Gutierrez Zarco. Unknown Fluconazole 05/10/19 Hx Tablets 150mg 2tabs take 1 Kelly B. 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 16 - s by mouth Eckenrode, Unknown every 4 PLASTIC PRESS OPERATOR to 6 hours as needed pain Primidone 01/24/20 Hx Tablets 50mg 360ta 1 - 3 G25.0 Mere Cobb 15 - bs tabs by Stackman, Grover mouth M.DAdy every night as directed Primidone 10/26/19 Hx Tablets 250mg 90tab 1 tab by Faye Patel 15 - s valentin PATEL 12/03/19 every 17 night at bedtime Primidone 07/11/19 Hx Tablets 250mg 30tab 1 tab by Mere Cobb 14 - s mouth Zora, 12/11/19 every M.D. 14 night Primidone 10/14/19 Hx Tablets 50mg 450ta 5 tabs Susannah 13 - bs by mouth AZAEL Orozco Unknown every night as directed Zocor 01/23/20 Hx Tablets 20mg 90tab one qhs Ben Dye - s Mary Goode 02/28/20 13 Calcium 500+D Hx Tablets 500-400mg 1 po Unknown 00 - -Unit daily 12/02/19 17 Femara Hx Tablets 2.5mg 1 po qd Unknown 00 - 12/11/19 14 Fish Oil Hx Capsules 1000mg 60cap 1 cap po Unknown Burp-Less 00 - s daily 12/02/19 17 Pravachol Hx Tablets 80mg 90tab 1 Unknown 00 - s tablets 10/14/19 po qhs 13 Primidone Hx Tablets 50mg 360ta 2-4 tabs Unknown 00 - bs by mouth 02/28/20 every 13 nigh every night as directed Vitamin B-12 Hx Tablets 1000mcg 30tab 1 po qd Unknown 00 - Sub s 12/11/19 14 Glucosamine & Hx Packet [id number] Unknown Chrondroitin 00 - -800mg-mg With Vitamin D 12/02/19 -Unit Maximum 17 Strength Vitamin D2 Hx Tablets 2000Unit 1 by Unknown 00 - mouth 08/30/19 every 18 day Poly-Iron 150 Hx Capsules 150mg 1 by Unknown 00 - mouth 12/02/19 every 17 day Metformin HCL Hx Tablets 500mg 2 by Unknown ER 00 - ER 24HR mouth 09/06/19 every 18 day Medications Administered in Office Medication Date Status Form Strength Qnty SIG Indications Ordering Provider Inj, Administered Injection Pancho Juarez, 013 John, 0.1 MG Mary, FACSkip, FASNC Technetium TC Administered Injection Pancho Meade 99M 013 Sushila Lopez M.D., [facility], Per Unit Dose [facility] Up To 40 Millicuries Immunizations Description No Information Available Vital Signs Date Vital Result Comment 06/16/2018 11:45am Height 66 inches 5'6" Weight 233.12 lb Heart Rate 84 /min BP Systolic Sitting 130 mmHg BP Diastolic Sitting 76 mmHg Respiratory Rate 14 /min Body Temperature 98.6 F BMI (Body Mass Index) 37.6 kg/m2 06/16/2018 10:59am Heart Rate 82 /min Respiratory Rate 16 /min Body Temperature 98.0 F 06/15/2018 10:03am Body Temperature 97.0 F 06/14/2018 9:30am Heart Rate 78 /min Respiratory Rate 18 /min Body Temperature 96.9 F 06/13/2018 11:19am Heart Rate 62 /min Respiratory Rate 16 /min Body Temperature 97.5 F 06/12/2018 8:49am Respiratory Rate 16 /min Body Temperature 97.4 F 06/07/2018 8:59am Heart Rate 84 /min Respiratory Rate 18 /min Body Temperature 97.9 F 06/05/2018 8:54am Body Temperature 98.1 F 06/02/2018 8:39am Heart Rate 78 /min Respiratory Rate 18 /min Body Temperature 97.9 F 05/29/2018 9:01am Heart Rate 72 /min Respiratory Rate 18 /min Body Temperature 97.1 F 05/26/2018 9:34am Heart Rate 76 /min Respiratory Rate 16 /min Body Temperature 98.4 F 05/24/2018 10:42am Respiratory Rate 18 /min Body Temperature 97.7 F 05/22/2018 9:19am Body Temperature 97.0 F 05/19/2018 9:48am Heart Rate 72 /min Respiratory Rate 16 /min Body Temperature 96.4 F 05/17/2018 11:07am Heart Rate 84 /min Respiratory Rate 18 /min Body Temperature 97.0 F 05/15/2018 1:34pm Heart Rate 76 /min Respiratory Rate 16 /min Body Temperature 98.4 F 05/12/2018 10:44am Heart Rate 78 /min Respiratory Rate 16 /min Body Temperature 98.0 F 05/10/2018 2:41pm Heart Rate 78 /min Respiratory Rate 18 /min Body Temperature 96.6 F 05/08/2018 9:30am Heart Rate 84 /min Respiratory Rate 18 /min Body Temperature 97.0 F 05/05/2018 10:40am Heart Rate 62 /min Respiratory Rate 18 /min Body Temperature 97.6 F 05/04/2018 2:07pm Heart Rate 78 /min Respiratory Rate 18 /min Body Temperature 97.5 F 05/03/2018 12:07pm Heart Rate 74 /min Respiratory Rate 18 /min Body Temperature 97.7 F 05/02/2018 10:27am Heart Rate 74 /min Respiratory Rate 16 /min Body Temperature 98.5 F 04/25/2018 8:50am Heart Rate 84 /min Respiratory Rate 18 /min Body Temperature 97.6 F 04/21/2018 8:59am Heart Rate 74 /min Respiratory Rate 18 /min Body Temperature 98.5 F 04/19/2018 10:31am Heart Rate 84 /min Respiratory Rate 18 /min Body Temperature 98.5 F 04/17/2018 11:44am Weight 237.00 lb Respiratory Rate 18 /min Body Temperature 98.6 F 03/09/2018 9:14am Height 66 inches 5'6" Weight 242.38 lb Heart Rate 68 /min BP Systolic Sitting 132 mmHg BP Diastolic Sitting 84 mmHg Body Temperature 97.3 F BMI (Body Mass Index) 39.1 kg/m2 09/06/2017 8:48am Height 66 inches 5'6" Weight 243.00 lb Heart Rate 68 /min BP Systolic 130 mmHg BP Diastolic 68 mmHg Respiratory Rate 16 /min BMI (Body Mass Index) 39.2 kg/m2 12/02/2016 3:17pm Height 66 inches 5'6" Weight 239.00 lb Heart Rate 72 /min BP Systolic Sitting 130 mmHg BP Diastolic Sitting 72 mmHg Respiratory Rate 17 /min BMI (Body Mass Index) 38.6 kg/m2 04/22/2016 10:06am Heart Rate 72 /min BP Systolic 126 mmHg BP Diastolic 80 mmHg Respiratory Rate 18 /min Body Temperature 97.1 F 04/06/2016 9:56am Heart Rate 80 /min BP Systolic 138 mmHg BP Diastolic 82 mmHg Respiratory Rate 20 /min Body Temperature 98.6 F 03/03/2016 9:27am Height 64 inches 5'4" Weight 250.00 lb Heart Rate 78 /min BP Systolic 142 mmHg BP Diastolic 78 mmHg Respiratory Rate 16 /min Body Temperature 97.7 F BMI (Body Mass Index) 42.9 kg/m2 01/23/2015 9:14am Height 64 inches 5'4" Weight 250.00 lb Heart Rate 64 /min BP Systolic Sitting 114 mmHg BP Diastolic Sitting 80 mmHg Respiratory Rate 14 /min BMI (Body Mass Index) 42.9 kg/m2 12/11/2013 8:58am Height 64 inches 5'4" Weight 256.00 lb Heart Rate 84 /min BP Systolic Sitting 124 mmHg BP Diastolic Sitting 66 mmHg Respiratory Rate 16 /min BMI (Body Mass Index) 43.9 kg/m2 07/10/2013 8:28am Heart Rate 67 /min BP Systolic Sitting 120 mmHg BP Diastolic Sitting 60 mmHg Respiratory Rate 16 /min 02/27/2013 9:06am Heart Rate 76 /min BP Systolic Sitting 140 mmHg BP Diastolic Sitting 78 mmHg Respiratory Rate 18 /min 10/13/2012 9:21am Heart Rate 72 /min BP Systolic Sitting 132 mmHg BP Diastolic Sitting 70 mmHg Respiratory Rate 18 /min 08/08/2012 9:06am Weight 253.00 lb Heart Rate 80 /min BP Systolic Sitting 130 mmHg BP Diastolic Sitting 68 mmHg Respiratory Rate 16 /min 01/23/2003 10:15am Height 65.5 inches Weight 283.00 lb Heart Rate 73 /min BP Systolic Sitting 142 mmHg BP Diastolic Sitting 78 mmHg BP Systolic Standing 126 mmHg BP Diastolic Standing 74 mmHg BMI (Body Mass Index) 46.4 kg/m2 Results Test Date Facility Test Result H/L Range Note Laboratory test 06/16/2018 [facility] Glucose 192 finding Fingerstick Laboratory test 06/14/2018 [facility] Surgical SEE RESULT 1 , [address] Pathology BELOW [place], [place] [id number] [phone] Wound 06/13/2018 [facility] Wound/Misc SEE RESULT 3, 4 Culture/Sensi [address] [place] [address] Stain [phone] Wound 04/21/2018 [facility] Wound/Misc SEE RESULT 5, 6 Culture/Sensi [address] [place] [address] Stain [phone] Wound 04/17/2018 [facility] Wound/Misc SEE RESULT 7 Culture/Sensi [address] [place] [address] Stain [phone] Laboratory test 04/15/2016 [facility] Point of Care 152 mg/dL High 74-106 [address] Glucose [place], [place] [address] [phone] Laboratory test 04/15/2016 [facility] Point of Care 196 mg/dL High 74-106 [address] [place] [address] [phone] Basic Metabolic 04/06/2016 [facility] Sodium 136 mmol/L N 133- 145 [address] [place] [address] [phone] Potassium 4.0 mmol/L N 3.5-5.0 Chloride 99 mmol/L Low 101-111 Co2 Carbon Dioxide 31 mmol/L N 22-32 Anion Gap 6 mmol/L N 2-11 Glucose 147 mg/dL High 70-100 Blood Urea Nitrogen 13 mg/dL N 6-24 Creatinine 0.86 mg/dL N 0.51-0.95 BUN/Creatinine Ratio 15.1 N 8-20 Calcium 8.9 mg/dL N 8.6-10.3 Egfr Non- 65.6 N >60 Egfr 84.4 N >60 11 Laboratory test finding 12/26/2013 Free T4 0.52 ng/mL Low 0.61-1.12 Vitamin B12 657 pg/mL N 180-914 12 Ferritin < 10.0 ng/mL Low 11-307 Iron 44 g/dL Low 50-212 Iron & Iron Binding Capacity 12/26/2013 Unsaturated Iron Binding 377 g/ dL N Total Iron Binding Capacity 421 g/dL N 250-450 % Iron Saturation 10 % Low 15-55 CBC Auto Diff 12/26/2013 White Blood Count 5.7 10^3/uL N 4.8-10.8 Red Blood Count 3.77 10^6/uL Low 4.0-5.4 Hemoglobin 10.0 g/dL Low 12.0-16.0 Hematocrit 31 % Low 35-47 Mean Corpuscular Volume 83 fL N 80-97 Mean Corpuscular Hemoglobin 26 pg Low 27-31 Mean Corpuscular HGB Conc 32 g/dL N 31-36 Red Cell Distribution Width 16 % High 10.5-15 Platelet Count 247 10^3/uL N 150-450 Mean Platelet Volume 7 um3 Low 7.4-10.4 Abs Neutrophils 3.2 10^3/uL N 1.5-7.7 Abs Lymphocytes 2.0 10^3/uL N 1.0-4.8 Abs Monocytes 0.5 10^3/uL N 0-0.8 Abs Eosinophils 0.1 10^3/uL N 0-0.6 Abs Basophils 0 10^3/uL N 0-0.2 Abs Nucleated RBC 0 10^3/uL N Granulocyte % 55.6 % N 38-83 Lymphocyte % 34.4 % N 25-47 Monocyte % 8.2 % N 1-9 Eosinophil % 1.2 % N 0-6 Basophil % 0.6 % N 0-2 Nucleated Red Blood Cells % 0.1 N Comp Metabolic Panel 12/26/2013 Sodium 139 mmol/L N 133-145 Potassium 3.9 mmol/L N 3.7-5.6 Chloride 105 mmol/L N 101-111 Co2 Carbon Dioxide 30 mmol/L N 22-32 Anion Gap 4 mmol/L N 2-11 Glucose 146 mg/dL High 70-100 Blood Urea Nitrogen 11 mg/dL N 6-24 Creatinine 0.83 mg/dL N 0.51-0.95 BUN/Creatinine Ratio 13.3 N 8-20 Calcium 8.8 mg/dL N 8.6-10.3 Total Protein 6.7 g/dL N 6.4-8.9 Albumin 3.8 g/dL N 3.2-5.2 Globulin 2.9 g/dL N 2-4 Albumin/Globulin Ratio 1.3 N 1-3 Total Bilirubin 0.20 mg/dL N 0.2-1.0 Alkaline Phosphatase 68 U/L N 34-104 Alt 12 U/L N 7-52 Ast 17 U/L N 13-39 Egfr Non- 68.8 N >60 Egfr 88.5 N >60 13 1 [id number] SEE RESULT BELOW Name: OLINDA STOVALL : [address]: Girma Zarco MD Acct: [id number] Unit: [id number] AGE: 72 Location: [facility] Re06/14/18 SEX: F Status: REG REF SPEC: [id number] JANETH: 06/14/18-[address] [facility] [address]: Girma Zarco MD REQ: [id number] RECD: 06/14/18-1212 STATUS: SOUT _ ORDERED: LEVEL 4 COMMENTS: [id number] FINAL DIAGNOSIS Breast, left, excision: -- Inactive appearing breast tissue with extensive dense hyalin fibrosis, chronic inflammation with foreign body giant cell reaction, suture material and extensive fat necrosis compatible with prior surgical site. -- No evidence of neoplasia is identified. CLINICAL HISTORY No history given GROSS DESCRIPTION The specimen is received in formalin labeled, Left Breast Tissue, and consists of two yellow-white irregular rubbery fibrofatty soft tissue fragments measuring 2.1 x 1.5 by up to 0.6 cm and 3.0 x 1.8 x 1.5 cm. The cut surface consists of a variegated yellow-white adipose tissue with moderate interspersed wiseman-pink focally hemorrhagic fibrous tissue. A discrete lesion is not identified. The specimen is inked, serially sectioned and entirely submitted in cassettes A through E to include smaller fragment in cassettes D and E. Signed by and Reported on: Dom Baldwin MD 10/27 1651 END OF REPORT DEPARTMENT OF PATHOLOGY, [address] [place] [address] Dom Baldwin M.D. Director [facility] # [id number] 4 SEE RESULT BELOW Name: OLINDA STOVALL : [address]: Girma Zarco MD Acct: [id number] Unit: [id number] AGE: 72 Location: [facility] Re06/13/18 SEX: F Status: REG REF SPEC: [id number] JANETH: 06/13/18-[address]: Girma Zarco MD REQ: [id number] RECD: 06/13/18820 STATUS: RES _ SOURCE: BREAST,LEF SPDESC: ORDERED: Culture Stain COMMENTS: [id number] Procedure Result Reported Site Wound/Misc Gram Stain Final 06/14/18- 0933 ML 1+ Epithelial Cells 4+ Neutrophils 4+ Gram Positive Cocci 1+ Gram Negative Bacilli Possible 1+ Gram Negative Coccobacilli Wound/Misc Culture Preliminary 06/15/18- 1310 ML Organism 1 STAPHYLOCOCCUS AUREUS Quantity 3+ Organism 2 STREP AGALACTIAE - (GROUP B) Quantity 3+ Organism 3 STAPHYLOCOCCUS LUGDENENSIS 1. STAPHYLOCOCCUS AUREUS M.I.C. RX --------- ------ Penicillin >=0.5 R Clindamycin <=0.25 S Erythromycin 1 I Gentamicin <=0.5 S Linezolid 2 S Oxacillin >=4 R * Quinupristin/Dalfopristin <=0.25 S Rifampin <=0.5 S Tetracycline <=1 S Doxycycline - Deduced S * Minocycline - Deduced S Trimethoprim/Sulfamethoxazole <=10 S CONTINUED ON NEXT PAGE DEPARTMENT OF PATHOLOGY, [address] [place] [address] Dom Baldwin M.D. Director [facility] # [id number] Patient: OLINDA STOVALL [id number] (Continued) Specimen: [id number] Collected: 06/13/18-1199 Received: 06/13/18 (Continued) Procedure Result Reported Site Wound/Misc Culture Preliminary (continued) 06/15/18- 1309 1. STAPHYLOCOCCUS AUREUS (continued) M.I.C. RX --------- ------ Vancomycin 1 S Imipenem-Deduced R * Ampicillin/Sulbactam-Deduced R Cefazolin-Deduced R * These antibiotics are not available in the [facility] Formulary Contact the Microbiology Department for any additional antibiotic reporting. * - Main Lab . END OF REPORT DEPARTMENT OF PATHOLOGY, [address] [place] [address] Dom Baldwin M.D. Director [facility] # [id number] 5 [id number] SEE RESULT BELOW Name: OLINDA STOVALL : [address]: Girma Zarco MD Acct: [id number] Unit: [id number] AGE: 72 Location: [facility] Re04/21/18 SEX: F Status: REG REF SPEC: [id number] JANETH: 04/21/[address] [facility] [address]: Girma Zarco MD REQ: [id number] RECD: 04/21/18 STATUS: COMP _ SOURCE: BREAST,LEF SPDESC: ORDERED: Culture Stain COMMENTS: [id number] Specimen Description LEFT BREAST ABSCESS Procedure Result Reported Site Wound/Misc Gram Stain Final 04/21/18- 1455 ML 4+ Neutrophils 4+ Gram Positive Cocci in Chains, resembling Strep Wound/Misc Culture Final 04/23/18- 0845 ML Organism 1 STREP AGALACTIAE - (GROUP B) Quantity 1+ 1. STREP AGALACTIAE - (GROUP B) M.I.C. RX --------- ------ Ampicillin <=0.25 S Penicillin <=0.12 S Ciprofloxacin 1 S Clindamycin R Erythromycin R Levofloxacin 2 S Linezolid 2 S * Moxifloxacin <=0.25 S * Quinupristin/Dalfopristin 0.5 S Tetracycline 2 S Tigecycline <=0.12 S Vancomycin <=0.5 S CONTINUED ON NEXT PAGE DEPARTMENT OF PATHOLOGY, [address] [place] [address] Dom Baldwin M.D. Director [facility] # [id number] Patient: OLINDA STOVALL [id number] (Continued) Specimen: [id number] Collected: 04/21/18 Received: 04/21/18 (Continued) Procedure Result Reported Site Wound/Misc Culture Final (continued) * These antibiotics are not available in the [facility] Formulary Contact the Microbiology Department for any additional antibiotic reporting. * ML - Main Lab . END OF REPORT DEPARTMENT OF PATHOLOGY, [address] [place] [address] Dom Baldwin M.D. Director [facility] # [id number] 7 SEE RESULT BELOW Name: OLINDA STOVALL : [address]: Yoel Almanzar RPA Acct: [id number] Unit: [id number] AGE: 72 Location: [facility] Re04/17/18 SEX: F Status: REG REF SPEC: [id number] JANETH: 04/17/181230 SUBM DR: Yoel lAmanzar RPA REQ: [id number] RECD: 04/17/18 STATUS: RES _ SOURCE: BREAST,LEF SPDESC: ORDERED: Culture Stain QUERIES: Specimen Description LEFT BREAST ABSCESS Procedure Result Reported Site Wound/Misc Gram Stain Final 04/17/18- 1552 ML 2+ Neutrophils 3+ Gram Positive Cocci Wound/Misc Culture Preliminary 04/18/18- 1022 ML Organism 1 STREP AGALACTIAE - (GROUP B) Quantity 2+ * ML - Main Lab . END OF REPORT DEPARTMENT OF PATHOLOGY, [address] [place] [address] Dom Baldwin M.D. Director [facility] # [id number] Planner: [id number] RENY VILLAGRAN 9 Planner: [id number] Ketan Song 10 [facility] 04/15 11 Because ethnic data is not always readily available, this report includes an eGFR for both -Americans and non- Americans. The National Kidney Disease Education Program (NKDEP) does not endorse the use of the MDRD equation for patients that are not between the ages of 18 and 70, are , have extremes of body size, muscle mass, or nutritional status, or are non- or non-. According to the National Kidney Foundation, irrespective of diagnosis, the stage of the disease is based on the level of kidney function: Stage Description GFR(mL/min/1.73 m(2)) 1 Kidney damage with normal or decreased GFR 90 2 Kidney damage with mild decrease in GFR 60-89 3 Moderate decrease in GFR 30-59 4 Severe decrease in GFR 15-29 5 Kidney failure <15 (or dialysis) 12 Normal Range 180 to 914 Indeterminate Range 145 to 180 Deficient Range <145 13 Because ethnic data is not always readily available, this report includes an eGFR for both -Americans and non- Americans. The National Kidney Disease Education Program (NKDEP) does not endorse the use of the MDRD equation for patients that are not between the ages of 18 and 70, are , have extremes of body size, muscle mass, or nutritional status, or are non- or non-. According to the National Kidney Foundation, irrespective of diagnosis, the stage of the disease is based on the level of kidney function: Stage Description GFR(mL/min/1.73 m(2)) 1 Kidney damage with normal or decreased GFR 90 2 Kidney damage with mild decrease in GFR 60-89 3 Moderate decrease in GFR 30-59 4 Severe decrease in GFR 15-29 5 Kidney failure <15 (or dialysis) Procedures Date Code Description Status 06/14/2018 53153 I&D Of Abscess Complicated Completed 05/02/2018 76179 Mastotomy W/Explore/Drain Abscess Deep Completed 04/25/2018 68533 Puncture Aspiration Of Abcess Bulla Cyst Completed 04/21/2018 15035 Puncture Aspiration Of Abcess Bulla Cyst Completed 04/19/2018 42288 Puncture Aspiration Of Abcess Bulla Cyst Completed 04/17/2018 21631 Puncture Aspiration Of Abcess Bulla Cyst Completed 06/09/2017 12602213 Colonoscopy Completed 07/02/2016 94889 Treadmill Interp/Report Only Completed 07/02/2016 45486 Stress Test Supervsn W/Out I/R Completed 07/02/2016 75386 EKG, Interpretation Only Completed 04/15/2016 42346 Repair Hernia Incisional/Ventral Initial, Reducible Completed 04/15/2016 42692 EKG, Interpretation Only Completed 04/15/2016 85016 Implant For Incisional/Ventral Hernia Repair Completed 04/06/2016 22124 EKG, Interpretation Only Completed 07/11/2012 16055 Stress Test Completed 07/11/2012 56723 Myocardial Perfusion Imaging Tomographic (Spect) Completed Multiple Studies 07/07/2012 82838 ECHO Stress Test Incl Perf Contiuous ekg Monitoring Completed W/Phys Superv 07/07/2012 18495 Cardiac Event Monitor Completed 06/28/2012 45892 Holter Monitoring 24 HR New Completed 06/23/2012 26709 ECHO Transthoracic, Real-Time 2D With Doppler And Color Completed Flow 06/13/2012 70208 EKG Tracing & Interpretation Completed 01/29/2003 82578 ECHO/Stress Completed 01/29/2003 12100 Transesophageal Echocardiogram Completed 01/29/2003 44817 Treadmill Interp/Report Only Completed 01/29/2003 25743 Stress Test Supervsn W/Out I/R Completed 01/23/2003 45532 EKG Tracing & Interpretation Completed 01/15/2003 03468 Treadmill Interp/Report Only Completed 01/15/2003 83987 Stress Test Supervsn W/Out I/R Completed 01/08/2003 46028 Color Doppler Completed 01/08/2003 83499 Pulse Doppler & Continuous Wave Completed 01/08/2003 91085 Echocardiogram Completed Encounters Type Date Location Provider Dx Diagnosis Office Visit 04/17/2018 Surgical Yoel Fish N61.1 Abscess of the 11:30a [facility] DAYANA Almanzar breast and nipple Office Visit 03/09/2018 [facility] Max Tee G25.0 Essential tremor 9:15a [facility] R53.82 Chronic fatigue, unspecified Office Visit 09/06/2017 [facility] Max Tee G25.0 Essential tremor 8:30a [facility] Office Visit 12/02/2016 [facility] Max Blakely G25.0 Essential tremor 3:15p [facility] Office Visit 07/01/2016 [facility] Chris Mohr R07.2 Precordial pain 11:12a Assocalvin II, M.D. Hospitalists E11.9 Type 2 diabetes mellitus without complications I10 Essential (primary) hypertension Z85.3 Personal history of malignant neoplasm of breast Office Visit 04/15/2016 9:48a [facility] Teetee Shields, R55 Syncope and Assalvin harkins M.D. collapse Hospitalists Z98.890 Other specified postprocedural states Z87.19 Personal history of other diseases of the digestive system Office Visit 03/03/2016 9:15a Surgical Girma Arango K42.9 [facility]mbilical [facility]nia [facility] Zarco M.D. without obstruction or gangrene Office Visit 01/23/2015 9:00a [facility] Max Cobb G25.0 Essential tremor [facility] Blakely M.D. G25.81 Restless legs syndrome Office Visit 12/11/2013 8:45a [facility] Max Cobb 333.1 Tremor Essential [facility] Blakely M.D. & Other Forms 333.94 Restless Leg Syndrome Office Visit 07/10/2013 8:30a [facility] Mere Cobb 333.1 Tremor [facility] Mary Blakely Essential & Other Forms Office Visit 02/27/2013 8:45a [facility] Mere Cobb 333.1 Tremor [facility] Mary Blakely Essential & Other Forms Office Visit 10/13/2012 9:15a [facility] Mere Cobb 333.1 Tremor [facility] Mary Blakely Essential & Other Forms Office Visit 08/08/2012 9:00a [facility] [facility]rolog[facility] Mere Cobb 333.1 T[facility] Blakely M.D. Essential & Other Forms Office Visit 06/13/2012 9:30a [facility] Pancho Meade 786.50 Pain [facility] Lopez M.D., Unspec FACC, FASNC 785.1 Palpitations Office Visit 01/23/2003 10:00a [facility] Ben Tillman 786.59 Pain Chest Mary Goode Other 782.3 Edema Plan of Treatment Future Appointment(s):06/27/2018 11:30 am - Chato Jeffrey M.D. at [facility]qup01/13/2019 9:45 am - Yoel Tee M.D. at [facility]06/16/2018 - Chato Jeffrey M.D.R53.81 Other malaiseFollow up:2 ejexdE15.9 Fever, unspecifiedComments:direct admission for blood cultures, ceftriaxone and workup for distant spread if BC jhuvwgomU84.0 Mastitis without abscessComments:discussed with Dr Zarco before and after the visit
--- OUTSIDE RECORDS SUMMARY | 2018-06-16 13:17 | XMS REPORT | Continuity of Care Document ---
:1945 External Reference #:[id number] Author Name Concepción Davila Care Team Providers Name Role Phone Mariusz Kulkarni MD Primary Care Physician Unavailable Payers Date Identification Numbers Payment Provider Subscriber Effective: Policy Number: [id number] Medicare Blue Ppo Olinda Stovall 2013 Group Number: [id number] [address] [address] PayID: [id number] [id number] Advance Directives Description No Information Available Problems Date Description Provider Status Onset: 01/23/2015 Essential tremor Mere Blakely M.D. Active Onset: 03/09/2018 Chronic fatigue syndrome Yoel Tee M.D. Active Onset: 03/09/2018 Abnormal involuntary movement Yoel Tee M.D. Active Family History Date Family Member(s) Observation Comments Father due to Diabetes () Father due to Cancer () Siblings 3 2-brothers with polio and one with MS 1-brother no current problems Social History Type Date Description Comments Sex Unknown Marital Status Lives With Spouse Occupation Works at the [employer] 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 Unknown Fluconazole 05/10/19 Hx Tablets 150mg 2tabs take 1 Kelly B. 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 16 - s by mouth Eckenrode, Unknown every 4 CERTIFIED PHARMACY TECH to 6 hours as needed pain Primidone 01/24/20 Hx Tablets 50mg 360ta 1 - 3 G25.0 Mere M. 15 - bs tabs by Stackman, Unknown mouth M.DAdy every night as directed Primidone [...] Hx Tablets 20mg 90tab one qhs Ben Tillman 03 - s Mary Goode 02/28/20 13 Calcium [...] s 12/11/19 14 Glucosamine & Hx Packet [id number] Unknown Chrondroitin 00 - -800mg-mg With Vitamin [...] Ordering Provider Inj, Administered Injection Pancho Juarez, Kristyn Lopez, 0.1 MG Mary, FACSkip, FASNC Technetium TC Administered Injection Pancho Meade 99M Sushila Plata M.D., SIMI, Per Unit Dose FASAMY Up To 40 Millicuries Immunizations Description No Information Available Vital Signs Date Vital Result Comment 06/14/2018 9:30am Heart Rate 78 /min Respiratory [...] Date Facility Test Result H/L Range Note Wound 06/13/2018 [facility] Wound/Misc SEE RESULT 1, 2 Culture/[facility]ens[facility] [address] [place] [address] Stain [phone] Wound 04/21/2018 [facility] Wound/Misc SEE RESULT 3, 4 Culture/Sensi [address] [place] [address] Stain [phone] Wound 04/17/2018 [facility] Wound/Misc SEE RESULT 5 Culture/Sensi [address] [place] [address] Stain [phone] Laboratory test 04/15/2016 [facility] Point of Care 152 mg/dL High 74-106 [address] Glucose [place], [place] [id number] [phone] Laboratory test 04/15/2016 [facility] Point of Care 196 mg/dL High 74-106 [address] [place] [address] [phone] Basic Metabolic 04/06/2016 [facility] Sodium 136 mmol/L N 133- 145 [address] [place] [address] [phone] Potassium 4.0 mmol/L N 3.5-5.0 Chloride 99 mmol/L Low 101-111 Co2 Carbon Dioxide 31 mmol/L N 22-32 Anion Gap 6 mmol/L N 2-11 Glucose 147 mg/dL High 70-100 Blood Urea Nitrogen 13 mg/dL N 6-24 Creatinine 0.86 mg/dL N 0.51-0.95 BUN/Creatinine Ratio 15.1 N 8-20 Calcium 8.9 mg/dL N 8.6-10.3 Egfr Non- 65.6 N >60 Egfr 84.4 N >60 9 Laboratory test finding 12/26/2013 Free T4 0.52 ng/mL Low 0.61-1.12 Vitamin B12 657 pg/mL N 180-914 10 Ferritin < 10.0 ng/mL Low 11-307 Iron [...] 68.8 N >60 Egfr 88.5 N >60 11 1 [id number] 2 SEE RESULT BELOW Name: OLINDA STOVALL : [address]: Girma Zarco MD Acct: [id number] Unit: [id number] AGE: 72 Location: [facility] Re06/13/18 SEX: F Status: REG REF SPEC: [id number] JANETH: 06/13/18-[address]: Girma Zarco MD REQ: [id number] RECD: 06/13/18 STATUS: RES _ SOURCE: BREAST,LEF SPDESC: ORDERED: Culture Stain COMMENTS: [id number] Procedure Result Reported Site Wound/Misc Gram Stain Final 06/14/18932 ML 1+ Epithelial Cells 4+ Neutrophils 4+ Gram Positive Cocci 1+ Gram Negative Bacilli Possible 1+ Gram Negative Coccobacilli Wound/Misc Culture PENDING * ML - Main Lab . END OF REPORT DEPARTMENT OF PATHOLOGY, [address] [place] [address] Dom Baldwin M.D. Director [facility] # [id number] 3 [id number] 4 SEE RESULT BELOW Name: OLINDA STOVALL : [address]: Girma Zarco MD Acct: [id number] Unit: [id number] AGE: 72 Location: [facility] Re04/21/18 SEX: F Status: REG REF SPEC: [id number] JANETH: 04/21/[address]: Girma Zarco MD REQ: [id number] RECD: 04/21/18 STATUS: COMP _ SOURCE: BREAST,LEF SPDESC: ORDERED: Culture Stain COMMENTS: [id number] Specimen Description LEFT BREAST ABSCESS Procedure Result Reported Site Wound/Misc Gram Stain Final 04/21/18- 1455 ML 4+ Neutrophils 4+ Gram Positive Cocci in Chains, resembling Strep Wound/Misc Culture Final 04/23/1845 ML Organism 1 STREP AGALACTIAE - (GROUP B) Quantity 1+ 1. STREP AGALACTIAE - (GROUP B) M.I.C. RX --------- ------ Ampicillin <=0.25 S Penicillin <=0.12 S Ciprofloxacin 1 S Clindamycin R Erythromycin R Levofloxacin 2 S Linezolid 2 S * Moxifloxacin <=0.25 S * Quinupristin/Dalfopristin 0.5 S Tetracycline 2 S Tigecycline <=0.12 S Vancomycin <=0.5 S CONTINUED ON NEXT PAGE DEPARTMENT OF PATHOLOGY, [address] [place] [address] Dom Baldwin M.D. Director [facility] # [id number] Patient: OLINDA STOVALL [id number] (Continued) Specimen: [id number] Collected: 04/21/18 Received: 04/21/18 (Continued) Procedure Result Reported Site Wound/Misc Culture Final (continued) * These antibiotics are not available in the [facility] Formulary Contact the Microbiology Department for any additional antibiotic reporting. * ML - Main Lab . END OF REPORT DEPARTMENT OF PATHOLOGY, [address] [place] [address] Dom Baldwin M.D. Director [facility] # [id number] 5 SEE RESULT BELOW Name: OLINDA STOVALL : [address]: Yoel Almanzar RPA Acct: [id number] Unit: [id number] AGE: 72 Location: [facility] Re04/17/18 SEX: F Status: REG REF SPEC: [id number] JANETH: 04/17/18 [facility] DR: Yoel Almanzar RPA REQ: [id number] RECD: 04/17/18 STATUS: RES _ SOURCE: BREAST,LEF SPDESC: ORDERED: Culture Stain QUERIES: Specimen Description LEFT BREAST ABSCESS Procedure Result Reported Site Wound/Misc Gram Stain Final 04/17/18- 1552 ML 2+ Neutrophils 3+ Gram Positive Cocci Wound/Misc Culture Preliminary 04/18/18- 1022 ML Organism 1 STREP AGALACTIAE - (GROUP B) Quantity 2+ * ML - Main Lab . END OF REPORT DEPARTMENT OF PATHOLOGY, [address] [place] [address] Dom Baldwin M.D. Director [facility] # [id number] 6 Benzene Worker: [id number] RENY VILLAGRAN 7 Benzene Worker: [id number] Ketan Song 8 SDFS 04/15 9 Because ethnic data is not always readily [...] 15-29 5 Kidney failure <15 (or dialysis) 10 Normal Range 180 to 914 Indeterminate Range 145 to 180 Deficient Range <145 11 Because ethnic data is not always [...] dialysis) Procedures Date Code Description Status 06/14/2018 05829 I&D Of Abscess Complicated Completed 05/02/2018 41880 Mastotomy W/Explore/Drain Abscess Deep Completed 04/25/2018 75947 Puncture Aspiration Of Abcess Bulla Cyst Completed 04/21/2018 19947 Puncture Aspiration Of Abcess Bulla Cyst Completed 04/19/2018 21894 Puncture Aspiration Of Abcess Bulla Cyst Completed 04/17/2018 00247 Puncture Aspiration Of Abcess Bulla Cyst Completed 06/09/2017 67686954 Colonoscopy Completed 07/02/2016 87637 Treadmill Interp/Report Only Completed 07/02/2016 45510 Stress Test Supervsn W/Out I/R Completed 07/02/2016 91464 EKG, Interpretation Only Completed 04/15/2016 80074 Repair Hernia Incisional/Ventral Initial, Reducible Completed 04/15/2016 41771 EKG, Interpretation Only Completed 04/15/2016 76960 Implant For Incisional/Ventral Hernia Repair Completed 04/06/2016 51718 EKG, Interpretation Only Completed 07/11/2012 49819 Stress Test Completed 07/11/2012 82875 Myocardial Perfusion Imaging Tomographic (Spect) Completed Multiple Studies 07/07/2012 64055 ECHO Stress Test Incl Perf Contiuous ekg Monitoring Completed W/Phys Superv 07/07/2012 93431 Cardiac Event Monitor Completed 06/28/2012 31513 Holter Monitoring 24 HR New Completed 06/23/2012 99128 ECHO Transthoracic, Real-Time 2D With Doppler And Color Completed Flow 06/13/2012 01164 EKG Tracing & Interpretation Completed 01/29/2003 05201 ECHO/Stress Completed 01/29/2003 67156 Transesophageal Echocardiogram Completed 01/29/2003 30109 Treadmill Interp/Report Only Completed 01/29/2003 43036 Stress Test Supervsn W/Out I/R Completed 01/23/2003 89065 EKG Tracing & Interpretation Completed 01/15/2003 03682 Treadmill Interp/Report Only Completed 01/15/2003 45254 Stress Test Supervsn W/Out I/R Completed 01/08/2003 27822 Color Doppler Completed 01/08/2003 62512 Pulse Doppler & Continuous Wave Completed 01/08/2003 28322 Echocardiogram Completed Encounters Type Date Location Provider Dx Diagnosis Office Visit 04/17/2018 [facility] N61.1 Abscess of the 11:30a [facility] breast and nipple Office Visit 03/09/2018 [place] Max Tee, G25.0 Essential tremor 9:15a [facility] Hernandez R53.82 Chronic fatigue, unspecified Office Visit 09/06/2017 [place] Max Tee, G25.0 Essential tremor 8:30a [facility] M.DAdy Office Visit 12/02/2016 [place] Max Blakely, G25.0 Essential tremor 3:15p [facility] M.DAdy Office Visit 07/01/2016 [facility] Chris Mohr R07.2 Precordial pain 11:12a Assoc,alvin ABDULLAHI, Mary Hospitalists E11.9 Type 2 diabetes mellitus without complications I10 Essential (primary) hypertension Z85.3 Personal history of malignant neoplasm of breast Office Visit 04/15/2016 9:48a [facility] Teetee Shields, R55 Syncope and Assalvin harkins M.D. collapse Hospitalists Z98.890 Other specified postprocedural states Z87.19 Personal history of other diseases of the digestive system Office Visit 03/03/2016 9:15a Surgical Girma Arango K42.9 Umbilical hernia [facility] Zarco M.D. without obstruction or gangrene Office Visit 01/23/2015 9:00a [place] Max Cobb G25.0 Essential tremor [facility] Blakely M.D. G25.81 Restless legs syndrome Office Visit 12/11/2013 8:45a [place] Max Cobb 333.1 Tremor [facility] Blakely M.D. & Other Forms 333.94 Restless Leg Syndrome Office Visit 07/10/2013 8:30a [place] Max Cobb 333.1 [facility] Blakely M.D. Essential & Other Forms Office Visit 02/27/2013 8:45a [place] Max Cobb 333.1 [facility] Blakely M.D. Essential & Other Forms Office Visit 10/13/2012 9:15a [place] Max Cobb 333.1 [facility] Blakely M.D. Essential & Other Forms Office Visit 08/08/2012 9:00a [place] Max Cobb 333.1 [facility] Blakely M.D. Essential & Other Forms Office Visit 06/13/2012 9:30a [facility] Pancho Meade 786.50 [facility] Mary Lopez, Unspec [facility] 785.1 Palpitations Office Visit 01/23/2003 10:00a [facility] Ben Tillman 786.59 Pain Chest Mary Goode Other 782.3 Edema Plan of Treatment Future Appointment(s):06/16/2018 10:45 am - Nurse Visit [facility] at [facility]06/16/2018 11:10 am - Chato Jeffrey M.D. at [facility] [facility]06/13/2019 9:45 am - Yoel Tee M.D. at [place] [facility]06/14/2018 - Girma Zarco M.D.N61.1 Abscess of the breast and nippleNew Labs:Surgical Pathology, Scheduled: Follow up:06/15 with midlevel
--- OUTSIDE RECORDS SUMMARY | 2018-06-16 13:17 | XMS REPORT | Continuity of Care Document ---
:1945 External Reference #:[id number] Author Name Nohemi Tineo Care Team Providers Name Role Phone Mariusz Kulkarni MD Primary Care Physician Unavailable Payers Date Identification Numbers Payment Provider Subscriber Effective: Policy Number: [id number] Medicare Blue Ppo Olinda Stovall 2013 Group Number: [id number] [address] [address] PayID: [id number] MIRNA Thorne [address] Advance Directives Description No Information Available Problems [...] Lives With Spouse Occupation Works at the [employer] ETOH Use Denies alcohol use Tobacco Use Start: Unknown Patient has never smoked Smoking Status Reviewed: 06/12/18 Patient has never smoked Exercise Type/Frequency Exercises sporadically Allergies, Adverse Reactions, Alerts Date Description Reaction Status Severity Comments 01/23/2003 PCN Active rash,swelling Medications Medication Date Status Form Strength Qnty SIG Indications Ordering Provider Doxycycline 06/07/19 Active Tablets 100mg 30tab 1 by Z48.01 Girma Tellezclgary 19 s valentin Zarco M.D. twice a day Primidone 08/24/20 Active Tablets 50mg 720ta 6 tabs Yoel 17 bs by mouth Mary Tee every night as directed Ondansetron 04/22/19 Active Tablets 4mg 12tab one Lyla Pantoja 17 Dispers s tablet MD Rene dissolve d under the tongue every 6 hours as needed for nausea Xanax 01/23/20 Active Tablets 0.5mg 1 po bid Ben Tillman 03 melisa Goode M.D. 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 WORKER to 6 hours as needed pain Primidone 01/24/20 Hx Tablets 50mg 360ta 1 - 3 G25.0 Mere Cobb 15 - bs tabs by Zora, Unknown mouth M.DAdy every night as directed Primidone 10/26/19 Hx Tablets 250mg 90tab 1 tab by Faye Patel 15 - s mouth 12/03/19 every 17 night at bedtime Primidone [...] s 12/11/19 14 Glucosamine & Hx Packet [id number] Unknown Chrondroitin 00 - -800mg-mg With Vitamin [...] SIG Indications Ordering Provider Inj, Administered Injection Pacnho Juarez 013 John, 0.1 MG Mary, FACSkip, FASNC Technetium TC Administered Injection Pancho Meade 99M 013 Joyce LopezofMary gifford, [facility], Per Unit Dose [facility] Up To 40 Millicuries Immunizations Description No Information Available Vital Signs Date Vital Result Comment 06/12/2018 8:49am Respiratory Rate 16 /min Body [...] Facility Test Result H/L Range Note Wound 04/21/2018 [facility] Wound/Misc SEE RESULT 1, 2 Culture/Sensi [address] [place] [address] Stain [phone] Wound 04/17/2018 [facility] Wound/Misc SEE RESULT 3 Culture/Sensi [address] [place] [address] Stain [phone] Laboratory test 04/15/2016 [facility] Point of Care 152 mg/dL High 74-106 [address] [place] [address] [phone] Laboratory test 04/15/2016 [facility] Point of Care 196 mg/dL High 74-106 [address] [place] [address] [phone] Basic Metabolic 04/06/2016 [facility] Sodium 136 mmol/L N 133- 145 [address] [place] [address] [phone] Potassium 4.0 mmol/L N 3.5-5.0 Chloride 99 mmol/L Low 101-111 Co2 Carbon Dioxide 31 mmol/L N 22-32 Anion Gap 6 mmol/L N 2-11 Glucose 147 mg/dL High 70-100 Blood Urea Nitrogen 13 mg/dL N 6-24 Creatinine 0.86 mg/dL N 0.51-0.95 BUN/Creatinine Ratio 15.1 N 8-20 Calcium 8.9 mg/dL N 8.6-10.3 Egfr Non- 65.6 N >60 Egfr 84.4 N >60 7 Laboratory test finding 12/26/2013 Free T4 0.52 ng/mL Low 0.61-1.12 Vitamin B12 657 pg/mL N 180-914 8 Ferritin < 10.0 ng/mL Low 11-307 Iron [...] 68.8 N >60 Egfr 88.5 N >60 9 1 [id number] 2 SEE RESULT BELOW Name: OLINDA STOVALL : [address]: Girma Zarco MD Acct: [id number] Unit: [id number] AGE: 72 Location: [facility] Re04/21/18 SEX: F Status: REG REF SPEC: [id number] JANETH: 04/21/[address]: Girma Zarco MD REQ: [id number] RECD: 04/21/18122 STATUS: COMP _ SOURCE: BREAST,LEF SPDESC: ORDERED: Culture Stain COMMENTS: [id number] Specimen Description LEFT BREAST ABSCESS Procedure Result [...] CONTINUED ON NEXT PAGE DEPARTMENT OF PATHOLOGY, [address] [place] [address] Dom Baldwin M.D. Director [facility] # [id number] Patient: SCHOETITUSELDT,OLINDA L [id number] (Continued) Specimen: [id number] Collected: 04/21/18 Received: 04/21/18 (Continued) Procedure Result Reported Site Wound/Misc Culture Final (continued) * These antibiotics are not available in the [facility] Formulary Contact the Microbiology Department for any additional antibiotic reporting. * ML - Main Lab . END OF REPORT DEPARTMENT OF PATHOLOGY, [address] [place] [address] Dom Baldwin M.D. Director [facility] # [id number] 3 SEE RESULT BELOW Name: OLINDA STOVALL Nick : [address]: Yoel Almanzar RPA Acct: [id number] Unit: [id number] AGE: 72 Location: [facility] Re04/17/18 SEX: F Status: REG REF SPEC: [id number] JANETH: 04/17/181230 [facility] DR: Yoel Almanzar RPA REQ: [id number] RECD: 04/17/187 STATUS: RES _ SOURCE: BREAST,LEF SPDESC: ORDERED: Culture Stain QUERIES: Specimen Description LEFT BREAST ABSCESS Procedure Result Reported Site Wound/Misc Gram Stain Final 04/17/18- 1552 ML 2+ Neutrophils 3+ Gram Positive Cocci Wound/Misc Culture Preliminary 04/18/18- 1022 ML Organism 1 STREP AGALACTIAE - (GROUP B) Quantity 2+ * ML - Main Lab . END OF REPORT DEPARTMENT OF PATHOLOGY, [address] [place] [address] Dom Baldwin M.D. 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[employer] Devil: [id number] RENY VILLAGRAN 5 [employer]inter[employer] Devil: [id number] Ketan Song 6 [facility] 04/15 7 Because ethnic data is not always readily [...] 15-29 5 Kidney failure <15 (or dialysis) 8 Normal Range 180 to 914 Indeterminate Range 145 to 180 Deficient Range <145 9 Because ethnic data is not always [...] (or dialysis) Procedures Date Code Description Status 05/02/2018 93950 Mastotomy W/Explore/Drain Abscess Deep Completed 04/25/2018 98685 Puncture Aspiration Of Abcess Bulla Cyst Completed 04/21/2018 29264 Puncture Aspiration Of Abcess Bulla Cyst Completed 04/19/2018 44703 Puncture Aspiration Of Abcess Bulla Cyst Completed 04/17/2018 49043 Puncture Aspiration Of Abcess Bulla Cyst Completed 06/09/2017 19979286 Colonoscopy Completed 07/02/2016 97680 Treadmill Interp/Report Only Completed 07/02/2016 79371 Stress Test Supervsn W/Out I/R Completed 07/02/2016 08119 EKG, Interpretation Only Completed 04/15/2016 34711 Repair Hernia Incisional/Ventral Initial, Reducible Completed 04/15/2016 50395 EKG, Interpretation Only Completed 04/15/2016 72433 Implant For Incisional/Ventral Hernia Repair Completed 04/06/2016 73595 EKG, Interpretation Only Completed 07/11/2012 14496 Stress Test Completed 07/11/2012 90479 Myocardial Perfusion Imaging Tomographic (Spect) Completed Multiple Studies 07/07/2012 76422 ECHO Stress Test Incl Perf Contiuous ekg Monitoring Completed W/Phys Superv 07/07/2012 50492 Cardiac Event Monitor Completed 06/28/2012 71437 Holter Monitoring 24 HR New Completed 06/23/2012 03568 ECHO Transthoracic, Real-Time 2D With Doppler And Color Completed Flow 06/13/2012 41838 EKG Tracing & Interpretation Completed 01/29/2003 24345 ECHO/Stress Completed 01/29/2003 19490 Transesophageal Echocardiogram Completed 01/29/2003 61370 Treadmill Interp/Report Only Completed 01/29/2003 60444 Stress Test Supervsn W/Out I/R Completed 01/23/2003 62554 EKG Tracing & Interpretation Completed 01/15/2003 91110 Treadmill Interp/Report Only Completed 01/15/2003 00514 Stress Test Supervsn W/Out I/R Completed 01/08/2003 57134 Color Doppler Completed 01/08/2003 17030 Pulse Doppler & Continuous Wave Completed 01/08/2003 50369 Echocardiogram Completed Encounters Type Date Location Provider Dx Diagnosis Office Visit 04/17/2018 Surgical Yoel Fish N61.1 Abscess of the 11:30a [facility] DAYANA Almanzar breast and nipple Office Visit 03/09/2018 [place] Max Tee G25.0 Essential tremor 9:15a [facility] Mary R53.82 Chronic fatigue, unspecified Office Visit 09/06/2017 [place] Nasreen Ritchie5.0 Essential tremor 8:30a [facility] Office Visit 12/02/2016 [place] Max Blakely G25.0 Essential tremor 3:15p [facility] Office Visit 07/01/2016 [facility] Chris Mohr R07.2 Precordial pain 11:12a alvin Morgan II, aMry Hospitalists E11.9 Type 2 diabetes mellitus without complications I10 Essential (primary) hypertension Z85.3 Personal history of malignant neoplasm of breast Office Visit 04/15/2016 9:48a [facility] Teetee Shields, R55 Syncope and alvin Morgan M.D. collapse Hospitalists Z98.890 Other specified postprocedural states Z87.19 Personal history of other diseases of the digestive system Office Visit 03/03/2016 9:15a Surgical Girma Arango K42.9 Umbilical hernia [facility] Zarco M.D. without obstruction or gangrene Office Visit 01/23/2015 9:00a [place] Max Cobb G25.0 Essential tremor [facility] Mary Blakely G25.81 Restless legs syndrome Office Visit 12/11/2013 8:45a [place] Max Cobb 333.1 Tremor Essential [facility] Blakely M.D. & Other Forms 333.94 Restless Leg Syndrome Office Visit 07/10/2013 8:30a [facility] Mere Cobb 333.1 Tremor [facility] Blakely M.D. Essential & Other Forms Office Visit 02/27/2013 8:45a [facility] Mere Cobb 333.1 Tremor [facility] Blakely M.D. Essential & Other Forms Office Visit 10/13/2012 9:15a [facility] Mere Cobb 333.1 Tremor [facility] Blakely M.D. Essential & Other Forms Office Visit 08/08/2012 9:00a [facility] Mere Cobb 333.1 Tremor [facility] Blakely M.D. Essential & Other Forms Office Visit 06/13/2012 9:30a [facility] Pancho Meade 786.50 Pain [facility] M.D., Unspec FACC, FASNC 785.1 Palpitations Office Visit 01/23/2003 10:00a [facility] Ben Tillman 786.59 Pain Chest Mary Goode Other 782.3 Edema Plan of Treatment Future Appointment(s):06/16/2018 10:45 am - Nurse Visit [facility] at [facility]06/16/2018 11:10 am - Chato Jeffrey M.D. at [facility]/13/2019 9:45 am - Yoel Tee M.D. at [place] [facility]05/15/2018 - Yoel Almanzar, PAN61.1 Abscess of the breast and uemhzaN32.01 Encounter for change or removal of surgical wound dressing
--- OUTSIDE RECORDS SUMMARY | 2018-06-16 13:17 | XMS REPORT | Continuity of Care Document ---
:1945 External Reference #:[id number] Author Name Concepción Davila Care Team Providers Name Role Phone Nohemi Gibson FNP Care Team Information Tax Manager Public Unavailable Mariusz Kulkarni MD Primary Care Physician Unavailable Payers Date Identification Numbers Payment Provider Subscriber Effective: Policy Number: [id number] Medicare Blue Ppo Olinda Stovall 2013 Group Number: [id number] [address] [address] PayID: [id number] [place] [address] Advance Directives Description No Information Available Problems [...] Lives With Spouse Occupation Works at the [employer] ETOH Use Denies alcohol use Tobacco Use Start: Unknown Patient has never smoked Smoking Status Reviewed: 06/07/18 Patient has never smoked Exercise Type/Frequency Exercises sporadically Allergies, Adverse Reactions, Alerts Date Description Reaction Status Severity Comments 01/23/2003 PCN Active rash,swelling Medications Medication Date Status Form Strength Qnty SIG Indications Ordering Provider Doxycycline 06/07/19 Active Tablets 100mg 30tab 1 by Z48.01 Girma Milner 19 s valentin Zarco M.D. 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 Unknown Fluconazole 05/10/19 Hx Tablets 150mg 2tabs take 1 Kelly B. 19 - tablet Eckenrode, Unknown today PRODUCTION COST ESTIMATOR and may repeat in 3 days as needed Cephalexin 04/17/19 Hx Capsules 500mg 30cap 2 by N61.1 Lyla Pantoja 19 - s mouth MD Rene Unknown two times a day Percocet 04/06/20 Hx Tablets 5-325mg 20tab 1 tabs Kelly B. 16 - s by mouth Eckenrode, Unknown every 4 PRODUCTION COST ESTIMATOR to 6 hours as needed pain Primidone 01/24/20 Hx Tablets 50mg 360ta 1 - 3 G25.0 Mere Cobb 15 - bs tabs by Zora, Grover mouth M.DAdy every night as directed [...] s 12/11/19 14 Glucosamine & Hx Packet [id number] Unknown Chrondroitin 00 - -800mg-mg With Vitamin [...] SIG Indications Ordering Provider Inj, Administered Injection Panchoapril Meade Regadenoson, 013 John, 0.1 MG Mary, FACC, FASNC Technetium TC Administered Injection Pancho Deshaun 99M 013 John TetrofisabellainMary, [facility], Per Unit Dose FASOK Up To 40 Millicuries Immunizations Description No Information Available Vital Signs Date Vital Result Comment 06/07/2018 8:59am Heart Rate 84 /min Respiratory [...] Test Result H/L Range Note Wound 04/21/2018 [facility] Wound/Misc SEE RESULT 1, 2 Culture/Sensi [address] [address] Stain [phone] Wound 04/17/2018 [facility] Wound/Misc SEE RESULT 3 Culture/Sensi [address] [address] Stain [phone] Laboratory test 04/15/2016 [facility] Point of Care 152 mg/dL High 74-106 [address] [place] [address] [phone] Laboratory test 04/15/2016 [facility] Point of Care 196 mg/dL High 74-106 [address] Glucose [place], [place] [address] [phone] Basic Metabolic 04/06/2016 [facility] Sodium 136 mmol/L N 133- 145 [address] [place] [address] [phone] Potassium 4.0 mmol/L N 3.5-5.0 Chloride 99 [...] >60 Egfr 88.5 N >60 9 1 [id number] 2 SEE RESULT BELOW Name: OLINDA STOVALL : [address]: Girma Zarco MD Acct: [id number] Unit: [id number] AGE: 72 Location: [facility] Re04/21/18 SEX: F Status: REG REF SPEC: [id number] JANETH: 04/21/[address]: Girma Zarco MD REQ: [id number] RECD: 04/21/18 STATUS: COMP _ SOURCE: BREAST,LEF SPDESC: ORDERED: Culture Stain COMMENTS: [id number] Specimen Description LEFT BREAST ABSCESS Procedure Result [...] CONTINUED ON NEXT PAGE DEPARTMENT OF PATHOLOGY, [address] [place] [address] Dom Baldwin M.D. Director [facility] # [id number] Patient: OLINDA STOVALL [id number] (Continued) Specimen: [id number] Collected: 04/21/18 Received: 04/21/18 (Continued) Procedure Result Reported Site Wound/Misc Culture Final (continued) * These antibiotics are not available in the [facility] Formulary Contact the Microbiology Department for any additional antibiotic reporting. * ML - Main Lab . END OF REPORT DEPARTMENT OF PATHOLOGY, [address] [place] [address] Dom Baldwin M.D. Director [facility] # [id number] 3 SEE RESULT BELOW Name: RIZWANASATNAMANGIEAprilOLINDA : [address]: Yoel Almanzar RPA Acct: [id number] Unit: [id number] AGE: 72 Location: [facility] Re04/17/18 SEX: F Status: REG REF SPEC: [id number] JANETH: 04/17/[address] [facility] [address]: Yoel Almanzar RPA REQ: [id number] RECD: 04/17/18 STATUS: RES _ SOURCE: BREAST,LEF SPDESC: ORDERED: Culture Stain QUERIES: Specimen Description LEFT BREAST ABSCESS Procedure Result Reported Site Wound/Misc Gram Stain Final 04/17/18- 1552 ML 2+ Neutrophils 3+ Gram Positive Cocci Wound/Misc Culture Preliminary 04/18/18- 1022 ML Organism 1 STREP AGALACTIAE - (GROUP B) Quantity 2+ * ML - Main Lab . END OF REPORT DEPARTMENT OF PATHOLOGY, [address] [place] [address] Dom Baldwin M.D. Director [facility] # [id number] 4 Mail Examiner: [id number] RENY VILLAGRAN 5 Mail Examiner: [id number] Ketan Song 6 SDFS 04/15 7 Because ethnic data is not [...] dialysis) Procedures Date Code Description Status 05/02/2018 80243 Mastotomy W/Explore/Drain Abscess Deep Completed 04/25/2018 10095 Puncture Aspiration Of Abcess Bulla Cyst Completed 04/21/2018 36236 Puncture Aspiration Of Abcess Bulla Cyst Completed 04/19/2018 51590 Puncture Aspiration Of Abcess Bulla Cyst Completed 04/17/2018 74083 Puncture Aspiration Of Abcess Bulla Cyst Completed 06/09/2017 42002020 Colonoscopy Completed 07/02/2016 68868 Treadmill Interp/Report Only Completed 07/02/2016 89671 Stress Test Supervsn W/Out I/R Completed 07/02/2016 85620 EKG, Interpretation Only Completed 04/15/2016 91336 Repair Hernia Incisional/Ventral Initial, Reducible Completed 04/15/2016 60346 EKG, Interpretation Only Completed 04/15/2016 53715 Implant For Incisional/Ventral Hernia Repair Completed 04/06/2016 62990 EKG, Interpretation Only Completed 07/11/2012 33773 Stress Test Completed 07/11/2012 41974 Myocardial Perfusion Imaging Tomographic (Spect) Completed Multiple Studies 07/07/2012 64794 ECHO Stress Test Incl Perf Contiuous ekg Monitoring Completed W/Phys Superv 07/07/2012 71009 Cardiac Event Monitor Completed 06/28/2012 19012 Holter Monitoring 24 HR New Completed 06/23/2012 25901 ECHO Transthoracic, Real-Time 2D With Doppler And Color Completed Flow 06/13/2012 54955 EKG Tracing & Interpretation Completed 01/29/2003 36790 ECHO/Stress Completed 01/29/2003 33515 Transesophageal Echocardiogram Completed 01/29/2003 28132 Treadmill Interp/Report Only Completed 01/29/2003 82302 Stress Test Supervsn W/Out I/R Completed 01/23/2003 25133 EKG Tracing & Interpretation Completed 01/15/2003 17272 Treadmill Interp/Report Only Completed 01/15/2003 03872 Stress Test Supervsn W/Out I/R Completed 01/08/2003 69947 Color Doppler Completed 01/08/2003 70310 Pulse Doppler & Continuous Wave Completed 01/08/2003 89046 Echocardiogram Completed Encounters Type Date Location Provider Dx Diagnosis Office Visit 04/17/2018 [facility] Yoel Fish N61.1 Abscess of the 11:30a [facility] breast and nipple Office Visit 03/09/2018 [place] Max Tee G25.0 Essential tremor 9:15a [facility] R53.82 Chronic fatigue, unspecified Office Visit 09/06/2017 [place] Nasreen Ritchie5.0 Essential tremor 8:30a [facility] Office Visit 12/02/2016 [place] Max Blakely G25.0 Essential tremor 3:15p [facility] Office Visit 07/01/2016 [facility] Chris Mohr R07.2 Precordial pain 11:12a Assalvin harkins II, M.D. Hospitalists E11.9 Type 2 diabetes mellitus without complications I10 Essential (primary) hypertension Z85.3 Personal history of malignant neoplasm of breast Office Visit 04/15/2016 9:48a [facility] Teetee Shields, R55 Syncope and Assalvin harkins M.D. collapse Hospitalists Z98.890 Other specified postprocedural states Z87.19 Personal history of other diseases of the digestive system Office Visit 03/03/2016 9:15a Surgical Girma Arango K42.9 Umbilical [facility]nia [facility] Zarco M.D. without obstruction or gangrene Office Visit 01/23/2015 9:00a [place] Max Cobb G25.0 Essential tremor [facility] Blakely M.D. G25.81 Restless legs syndrome Office Visit 12/11/2013 8:45a [place] Max Cobb 333.1 Tremor Essential [facility] Blakely M.D. & Other Forms 333.94 Restless Leg Syndrome Office Visit 07/10/2013 8:30a [facility] Mere Cobb 333.1 Tremor [facility] Blakely M.D. Essential & Other Forms Office Visit 02/27/2013 8:45a [facility] Mere Cobb 333.1 Tremor [facility] Mary Blakely Essential & Other Forms Office Visit 10/13/2012 9:15a [facility] Mere Cobb 333.1 Tremor [facility] Blakely M.D. Essential & Other Forms Office Visit 08/08/2012 9:00a [facility] Mere Cobb 333.1 Tremor [facility] Blakely M.D. Essential & Other Forms Office Visit 06/13/2012 9:30a [facility] Pancho Meade 786.50 Pain [facility] M.D., Unspec [facility], FASNC 785.1 Palpitations Office Visit 01/23/2003 10:00a [facility] Ben Tillman 786.59 Pain Chest Mary Goode Other 782.3 Edema Plan of Treatment Future Appointment(s):06/16/2018 8:30 am - Nurse Visit [facility] at [facility]06/14/2018 8:30 am - Girma Zarco M.D. at [facility]06/12/2018 8:30 am - Nurse Visit [facility] at [facility]09/21/2018 9:45 am - Yoel Tee M.D. at [facility]
--- OUTSIDE RECORDS SUMMARY | 2018-06-16 13:17 | XMS REPORT | Continuity of Care Document ---
:1945 External Reference #:[id number] Author Name Concepción Davial Care Team Providers Name Role Phone Mariusz Kulkarni MD Primary Care Physician Unavailable Payers Date Identification Numbers Payment Provider Subscriber Effective: Policy Number: [id number] Medicare Blue Ppo Olinda Stovall 2013 Group Number: [id number] [address] [address] PayID: [id number] [place] [id number] Advance Directives Description No Information Available Problems [...] Lives With Spouse Occupation Works at the [employer] ETOH Use Denies alcohol use Tobacco Use [...] po Arthur, HCL 00 as Nohemi, 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 Unknown Fluconazole 05/10/19 Hx Tablets 150mg 2tabs take 1 Kelly B. 19 - tablet Eckenrode, Unknown today MODEL AND DYE PERSON and may repeat in 3 days as needed Cephalexin 04/17/19 Hx Capsules 500mg 30cap 2 by N61.1 Lyla Pantoja 19 - s mouth MD Rene Unknown two times a day Percocet 04/06/20 Hx Tablets 5-325mg 20tab 1 tabs Kelly B. 16 - s by mouth Eckenrode, Unknown every 4 MODEL AND DYE PERSON to 6 hours as needed pain Primidone [...] s 12/11/19 14 Glucosamine & Hx Packet [id number] Unknown Chrondroitin 00 - -800mg-mg With Vitamin [...] Vital Signs Date Vital Result Comment 06/16/2018 10:59am Heart Rate 82 /min Respiratory [...] Test Result H/L Range Note Laboratory test 06/14/2018 [facility] Surgical SEE RESULT 1 , [address] [place] [address] [phone] Wound 06/13/2018 [facility] Wound/Misc SEE RESULT 3, 4 Culture/Sensi [address] [place] [address] Stain [phone] Wound 04/21/2018 [facility] Wound/Misc SEE RESULT 5, 6 Culture/Sensi [address] [place] [address] Stain [phone] Wound 04/17/2018 [facility] Wound/Misc SEE RESULT 7 Culture/Sensi [address] [place] [address] Stain [phone] Laboratory test 04/15/2016 [facility] Point of Care 152 mg/dL High 74-106 [address] [place] [address] [phone] Laboratory test 04/15/2016 [facility] Point of Care 196 mg/dL High 74-106 [address] [place] [address] [phone] Basic Metabolic 04/06/2016 [facility] Sodium 136 mmol/L N 133- 145 [address] [place] [address] [phone] Potassium 4.0 mmol/L N 3.5-5.0 Chloride 99 [...] >60 Egfr 88.5 N >60 13 1 [id number] 2 SEE RESULT BELOW Name: OLINDA STOVALL : [address]: Girma Zarco MD Acct: [id number] Unit: [id number] AGE: 72 Location: [facility] Re06/14/18 SEX: F Status: REG REF SPEC: [id number] JANETH: 06/14/18-[address] [facility] [address]: Girma Zarco MD REQ: [id number] RECD: 06/14/18 STATUS: SOUT _ ORDERED: LEVEL 4 COMMENTS: [id number] FINAL DIAGNOSIS Breast, left, excision: -- Inactive [...] and Reported on: Dom Baldwin MD 10/27 7062 END OF REPORT DEPARTMENT OF PATHOLOGY, [address] [place] [address] Dom Baldwin M.D. Director [facility] # [id number] 4 SEE RESULT BELOW Name: OLINDA STOVALL : [address]: Girma Zarco MD Acct: [id number] Unit: [id number] AGE: 72 Location: [facility] Re06/13/18 SEX: F Status: REG REF SPEC: [id number] JANETH: 06/13/18-[address] [facility] [address]: Girma Zarco MD REQ: [id number] RECD: 06/13/18 STATUS: RES _ SOURCE: BREAST,LEF SPDESC: ORDERED: Culture Stain COMMENTS: [id number] Procedure Result Reported Site Wound/Misc Gram Stain [...] CONTINUED ON NEXT PAGE DEPARTMENT OF PATHOLOGY, [address] [place] [address] Dom Baldwin M.D. Director [facility] # [id number] Patient: OLINDA STOVALL [id number] (Continued) Specimen: [id number] Collected: 06/13/18-1199 Received: 06/13/18-1712 (Continued) Procedure Result Reported Site Wound/Misc Culture Preliminary (continued) 06/15/18- 1310 1. STAPHYLOCOCCUS AUREUS (continued) M.I.C. RX --------- ------ Vancomycin 1 S Imipenem-Deduced R * Ampicillin/Sulbactam-Deduced R Cefazolin-Deduced R * These antibiotics are not available in the [facility] Formulary Contact the Microbiology Department for any additional antibiotic reporting. * ML - Main Lab . END OF REPORT DEPARTMENT OF PATHOLOGY, [address] [place] [address] Dom Baldwin M.D. Director [facility] # [id number] 6 SEE RESULT BELOW Name: ELOISE STOVALLRA Romero : [address]: Girma Zarco MD Acct: [id number] Unit: [id number] AGE: 72 Location: [facility] Re04/21/18 SEX: F Status: REG REF SPEC: [id number] JANETH: 04/21/[address]: Girma Zarco MD REQ: [id number] RECD: 04/21/18 STATUS: COMP _ SOURCE: BREAST,LEF SPDESC: ORDERED: Culture Stain COMMENTS: [id number] Specimen Description LEFT BREAST ABSCESS Procedure Result [...] CONTINUED ON NEXT PAGE DEPARTMENT OF PATHOLOGY, [address] [place] [address] Dom Baldwin M.D. Director [facility] # [id number] Patient: OLINDA STOVALL [id number] (Continued) Specimen: [id number] Collected: 04/21/18 Received: 04/21/18 (Continued) Procedure Result Reported Site Wound/Misc Culture Final (continued) * These antibiotics are not available in the [facility] Formulary Contact the Microbiology Department for any additional antibiotic reporting. * - [facility] . END OF REPORT DEPARTMENT OF PATHOLOGY, [address] [place] [address] Dom Baldwin M.D. Director [facility] # [id number] 7 SEE RESULT BELOW Name: OLINDA STOVALL : [address]: Yoel Almanzar RPA Acct: [id number] Unit: [id number] AGE: 72 Location: [facility] Re04/17/18 SEX: F Status: REG REF SPEC: [id number] JANETH: 04/17/18-[address] [facility] [address]: Yoel Almanzar RPA REQ: [id number] RECD: 04/17/18 STATUS: RES _ SOURCE: BREAST,LEF SPDESC: ORDERED: Culture Stain QUERIES: Specimen Description LEFT BREAST ABSCESS Procedure Result Reported Site Wound/Misc Gram Stain Final 04/17/18- 1552 ML 2+ Neutrophils 3+ Gram Positive Cocci Wound/Misc Culture Preliminary 04/18/18- 1022 ML Organism 1 STREP AGALACTIAE - (GROUP B) Quantity 2+ * ML - Main Lab . END OF REPORT DEPARTMENT OF PATHOLOGY, [address] [place] [address] Dom Baldwin M.D. Director [facility] # [id number] 8 Fork Operator: [id number] RENY VILLAGRAN 9 Fork Operator: [id number] Ketan Song 10 SDFS 04/15 11 Because ethnic data is not [...] dialysis) Procedures Date Code Description Status 06/14/2018 20260 I&D Of Abscess Complicated Completed 05/02/2018 81357 Mastotomy W/Explore/Drain Abscess Deep Completed 04/25/2018 97489 Puncture Aspiration Of Abcess Bulla Cyst Completed 04/21/2018 32845 Puncture Aspiration Of Abcess Bulla Cyst Completed 04/19/2018 63807 Puncture Aspiration Of Abcess Bulla Cyst Completed 04/17/2018 04658 Puncture Aspiration Of Abcess Bulla Cyst Completed 06/09/2017 74513537 Colonoscopy Completed 07/02/2016 03870 Treadmill Interp/Report Only Completed 07/02/2016 24284 Stress Test Supervsn W/Out I/R Completed 07/02/2016 26053 EKG, Interpretation Only Completed 04/15/2016 56487 Repair Hernia Incisional/Ventral Initial, Reducible Completed 04/15/2016 64418 EKG, Interpretation Only Completed 04/15/2016 85668 Implant For Incisional/Ventral Hernia Repair Completed 04/06/2016 33441 EKG, Interpretation Only Completed 07/11/2012 77076 Stress Test Completed 07/11/2012 18852 Myocardial Perfusion Imaging Tomographic (Spect) Completed Multiple Studies 07/07/2012 82817 ECHO Stress Test Incl Perf Contiuous ekg Monitoring Completed W/Phys Superv 07/07/2012 12133 Cardiac Event Monitor Completed 06/28/2012 06369 Holter Monitoring 24 HR New Completed 06/23/2012 71902 ECHO Transthoracic, Real-Time 2D With Doppler And Color Completed Flow 06/13/2012 07286 EKG Tracing & Interpretation Completed 01/29/2003 38249 ECHO/Stress Completed 01/29/2003 79115 Transesophageal Echocardiogram Completed 01/29/2003 42575 Treadmill Interp/Report Only Completed 01/29/2003 26114 Stress Test Supervsn W/Out I/R Completed 01/23/2003 59865 EKG Tracing & Interpretation Completed 01/15/2003 35394 Treadmill Interp/Report Only Completed 01/15/2003 98719 Stress Test Supervsn W/Out I/R Completed 01/08/2003 46101 Color Doppler Completed 01/08/2003 17873 Pulse Doppler & Continuous Wave Completed 01/08/2003 21108 Echocardiogram Completed Encounters Type Date Location Provider Dx Diagnosis Office Visit 04/17/2018 Surgical Yoel Fish N61.1 Abscess of the 11:30a [facility] DAYANA Almanzar breast and nipple Office Visit 03/09/2018 [place] Max Tee G25.0 Essential tremor 9:15a [facility] Mary R53.82 Chronic fatigue, unspecified Office Visit 09/06/2017 [place] Max Tee G25.0 Essential tremor 8:30a [facility] [employer] Super[facility] RezaDAdy Office Visit 12/02/2016 [place] Max Blakely G25.0 Essential tremor 3:15p [facility] RezaDAdy Office Visit 07/01/2016 [facility] Chris Mohr R07.2 Precordial pain 11:12a Assoc,alvin ABDULLAHI, Mary Hospitalists E11.9 Type 2 diabetes mellitus without complications I10 Essential (primary) hypertension Z85.3 Personal history of malignant neoplasm of breast Office Visit 04/15/2016 9:48a [facility] Teetee Shields, R55 Syncope and Assoc,alvin Hernandez collapse Hospitalists Z98.890 Other specified postprocedural states Z87.19 Personal history of other diseases of the digestive system Office Visit 03/03/2016 9:15a Surgical Girma Arango K42.9 Umbilical [facility]nia [facility] Zarco M.D. without obstruction or gangrene Office Visit 01/23/2015 9:00a [place] Max Cobb G25.0 Essential tremor [facility] Kell Blakely M.D. G25.81 Restless legs syndrome Office Visit 12/11/2013 8:45a [place] aMx Cobb 333.1 Tremor Essential [facility] Kell Blakely M.D. & Other Forms 333.94 Restless Leg Syndrome Office Visit 07/10/2013 8:30a [place] Max Cobb 333.1 Tremor [facility] Kell Blakely M.D. Essential & Other Forms Office Visit 02/27/2013 8:45a [place] Max Cobb 333.1 Tremor [facility] Blakely M.D. Essential & Other Forms Office Visit 10/13/2012 9:15a [place] Max Cobos. 333.1 Tremor [facility] Mary Blakely Essential & Other Forms Office Visit 08/08/2012 9:00a [place] [facility] Mere Morel.1 Tremor [facility] Mary Blakely Essential & Other Forms Office Visit 06/13/2012 9:30a [facility] Pancho Meade 786.50 [facility] Mary Lopez, Unspec FACC, FASNC 785.1 Palpitations Office Visit 01/23/2003 10:00a [facility] Ben Tillman 786.59 Pain Chest Mary Goode Other 782.3 Edema Plan of Treatment Future Appointment(s):09/21/2018 9:45 am - Yoel Tee M.D. at [place] [facility]
--- OUTSIDE RECORDS SUMMARY | 2018-06-16 13:17 | XMS REPORT | Continuity of Care Document ---
:1945 External Reference #:[id number] Author Name Concepción Davila Care Team Providers Name Role Phone Mariusz Kulkarni MD Primary Care Physician Unavailable Payers Date Identification Numbers Payment Provider Subscriber Effective: Policy Number: [id number] Medicare Blue Ppo Olinda Stovall 2013 Group Number: [id number] [address] [address] PayID: [id number] [place] [id number] Advance Directives Description No Information Available Problems [...] Lives With Spouse Occupation Works at the [employer] ETOH Use Denies alcohol use Tobacco Use Start: Unknown Patient has never smoked Smoking Status Reviewed: 06/13/18 Patient has never smoked Exercise Type/Frequency Exercises [...] po Arthur, HCL 00 as Nohemi, 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 Unknown Fluconazole 05/10/19 Hx Tablets 150mg 2tabs take 1 Kelly B. 19 - tablet Eckenrode, Unknown today PEDIATRIC PHYSICIAN and may repeat in 3 days as needed Cephalexin 04/17/19 Hx Capsules 500mg 30cap 2 by N61.1 Lyla Pantoja 19 - s mouth MD Rene Unknown two times a day Percocet 04/06/20 Hx Tablets 5-325mg 20tab 1 tabs Kelly B. 16 - s by mouth Eckenrode, Unknown every 4 PEDIATRIC PHYSICIAN to 6 hours as needed pain Primidone [...] s 12/11/19 14 Glucosamine & Hx Packet [id number] Unknown Chrondroitin 00 - -800mg-mg With Vitamin [...] Available Vital Signs Date Vital Result Comment 06/13/2018 11:19am Heart Rate 62 /min Respiratory [...] Test Result H/L Range Note Wound 04/21/2018 [facility] Wound/Misc SEE RESULT 1, 2 Culture/Sensi [address] [place] [address] Stain [phone] Wound 04/17/2018 [facility] Wound/Misc SEE RESULT 3 Culture/Sensi [address] [place] [address] Stain [phone] Laboratory test 04/15/2016 [facility] Point of Care 152 mg/dL High 74-106 [address] [place] [address] [phone] Laboratory test 04/15/2016 [facility] Point of Care 196 mg/dL High 74-106 [address] [place] [address] [phone] Basic Metabolic 04/06/2016 [facility] Sodium 136 mmol/L N 133- 145 [address] [place] [address] [phone] Potassium 4.0 mmol/L N 3.5-5.0 Chloride 99 [...] >60 Egfr 88.5 N >60 9 1 [id number] 2 SEE RESULT BELOW Name: OLINDA STOVALL : [address]: Girma Zarco MD Acct: [id number] Unit: [id number] AGE: 72 Location: [facility] Re04/21/18 SEX: F Status: REG REF SPEC: [id number] JANETH: 04/21/[address]: Girma Zarco MD REQ: [id number] RECD: 04/21/18283 STATUS: COMP _ SOURCE: BREAST,LEF SPDESC: ORDERED: Culture Stain COMMENTS: [id number] Specimen Description LEFT BREAST ABSCESS Procedure Result [...] CONTINUED ON NEXT PAGE DEPARTMENT OF PATHOLOGY, [address] [place] [address] Dom Baldwin M.D. Director [facility] # [id number] Patient: OLINDA STOVALL [id number] (Continued) Specimen: [id number] Collected: 04/21/18 Received: 04/21/18 (Continued) Procedure Result Reported Site Wound/Misc Culture Final (continued) * These antibiotics are not available in the [facility] Formulary Contact the Microbiology Department for any additional antibiotic reporting. * ML - Main Lab . END OF REPORT DEPARTMENT OF PATHOLOGY, [address] [address] Dom Baldwin M.D. Director [facility] # [id number] 3 SEE RESULT BELOW Name: OLINDA STOVALL Nick : [address]: Yoel Almanzar RPA Acct: [id number] Unit: [id number] AGE: 72 Location: [facility] Re04/17/18 SEX: F Status: REG REF SPEC: [id number] JANETH: 04/17/18-[address]: Yoel Almanzar RPA REQ: [id number] RECD: 04/17/180 STATUS: RES _ SOURCE: BREAST,LEF SPDESC: ORDERED: Culture Stain QUERIES: Specimen Description LEFT BREAST ABSCESS Procedure Result Reported Site Wound/Misc Gram Stain Final 04/17/18- 1552 ML 2+ Neutrophils 3+ Gram Positive Cocci Wound/Misc Culture Preliminary 04/18/18- 1022 ML Organism 1 STREP AGALACTIAE - (GROUP B) Quantity 2+ * ML - Main Lab . END OF REPORT DEPARTMENT OF PATHOLOGY, [address] [place] [address] Dom Baldwin M.D. Director [facility] # [id number] 4 Residential Air Sealing Technician: [id number] RENY VILLAGRAN 5 Residential Air Sealing Technician: [id number] Ketan Song 6 [facility] 04/15 7 Because ethnic data is [...] dialysis) Procedures Date Code Description Status 05/02/2018 68675 Mastotomy W/Explore/Drain Abscess Deep Completed 04/25/2018 41498 Puncture Aspiration Of Abcess Bulla Cyst Completed 04/21/2018 20751 Puncture Aspiration Of Abcess Bulla Cyst Completed 04/19/2018 64775 Puncture Aspiration Of Abcess Bulla Cyst Completed 04/17/2018 40684 Puncture Aspiration Of Abcess Bulla Cyst Completed 06/09/2017 03036384 Colonoscopy Completed 07/02/2016 88742 Treadmill Interp/Report Only Completed 07/02/2016 30711 Stress Test Supervsn W/Out I/R Completed 07/02/2016 11629 EKG, Interpretation Only Completed 04/15/2016 04776 Repair Hernia Incisional/Ventral Initial, Reducible Completed 04/15/2016 06013 EKG, Interpretation Only Completed 04/15/2016 68125 Implant For Incisional/Ventral Hernia Repair Completed 04/06/2016 24549 EKG, Interpretation Only Completed 07/11/2012 87040 Stress Test Completed 07/11/2012 11103 Myocardial Perfusion Imaging Tomographic (Spect) Completed Multiple Studies 07/07/2012 54416 ECHO Stress Test Incl Perf Contiuous ekg Monitoring Completed W/Phys Superv 07/07/2012 83118 Cardiac Event Monitor Completed 06/28/2012 27857 Holter Monitoring 24 HR New Completed 06/23/2012 60265 ECHO Transthoracic, Real-Time 2D With Doppler And Color Completed Flow 06/13/2012 66081 EKG Tracing & Interpretation Completed 01/29/2003 39193 ECHO/Stress Completed 01/29/2003 08066 Transesophageal Echocardiogram Completed 01/29/2003 07583 Treadmill Interp/Report Only Completed 01/29/2003 18482 Stress Test Supervsn W/Out I/R Completed 01/23/2003 27994 EKG Tracing & Interpretation Completed 01/15/2003 19875 Treadmill Interp/Report Only Completed 01/15/2003 81903 Stress Test Supervsn W/Out I/R Completed 01/08/2003 18126 Color Doppler Completed 01/08/2003 06429 Pulse Doppler & Continuous Wave Completed 01/08/2003 77598 Echocardiogram Completed Encounters Type Date Location Provider Dx Diagnosis Office Visit 04/17/2018 Surgical Yoel Fish N61.1 Abscess of the 11:30a [facility] DAYANA Almanzar breast and nipple Office Visit 03/09/2018 [place] Max Tee G25.0 Essential tremor 9:15a [facility] Kell Hernandez R53.82 Chronic fatigue, unspecified Office Visit 09/06/2017 [place] Max Tee G25.0 Essential tremor 8:30a [facility] Kell Hernandez Office Visit 12/02/2016 [place] Max Blakely G25.0 Essential tremor 3:15p [facility] Kell Hernandez Office Visit 07/01/2016 [facility] Chris Mohr R07.2 Precordial pain 11:12a Assoc,alvin ABDULLAHI, MAmadeo Hospitalists E11.9 Type 2 diabetes mellitus without complications I10 Essential (primary) hypertension Z85.3 Personal history of malignant neoplasm of breast Office Visit 04/15/2016 9:48a [facility] Teetee Shields, R55 Syncope and Assoc,alvin Hernandez collapse Hospitalists Z98.890 Other specified postprocedural states Z87.19 Personal history of other diseases of the digestive system Office Visit 03/03/2016 9:15a Surgical Girma Arango K42.9 [facility]ilical [facility]nia [facility] Zarco M.D. without obstruction or gangrene Office Visit 01/23/2015 9:00a [place] Max Cobb G25.0 Essential tremor [facility] Blakely M.D. G25.81 Restless legs syndrome Office Visit 12/11/2013 8:45a [place] [facility] Mere Cobb 333.1 Tremor Essential [facility] Mary Blakely & Other Forms 333.94 Restless Leg Syndrome Office Visit 07/10/2013 8:30a [place] [facility]re Cobb 333.1 Tremor [facility] Mary Blakely Essential & Other Forms Office Visit 02/27/2013 8:45a [place] [facility]re Cobb 333.1 Tremor [facility] Blakely M.D. Essential & Other Forms Office Visit 10/13/2012 9:15a [place] [facility]re Cobb 333.1 Tremor [facility] Blakely M.D. Essential & Other Forms Office Visit 08/08/2012 9:00a [place] [facility] Mere Cobb 333.1 T[facility]or [facility] Mary Blakely Essential & Other Forms Office Visit 06/13/2012 9:30a [facility] Pancho Meade 786.50 [facility] Mary Lopez, Unspec FACC, FASNC 785.1 Palpitations Office Visit 01/23/2003 10:00a [facility] Ben Tillman 786.59 Pain Chest Mary Goode Other 782.3 Edema Plan of Treatment Future Appointment(s):06/14/2018 10:00 am - Girma Zarco M.D. at [facility]06/16/2018 10:45 am - Nurse Visit [facility]urg Assoc at [facility]06/16/2018 11:10 am - Chato Jeffrey M.D. at [place] [facility]/13/2019 9:45 am - Yoel Tee M.D. at [place] [facility]05/15/2018 - Yole Almanzar, PAN61.1 Abscess of the breast and outwrqA87.01 Encounter for change or removal of surgical wound dressing
--- OUTSIDE RECORDS SUMMARY | 2018-06-16 13:18 | XMS REPORT | Continuity of Care Document ---
:1945 External Reference #:[id number] Author Name Nohemi Tineo Care Team Providers Name Role Phone Nohemi Gibson FNP Care Team Information Water Project Manager Unavailable Mariusz Kulkarni MD Primary Care Physician Unavailable Payers Date Identification Numbers Payment Provider Subscriber Effective: Policy Number: [id number] Medicare Blue Ppo Olinda Stovall 2013 Group Number: [id number] [address]: [id number] [place] [address] Advance Directives Description No Information Available Problems [...] Lives With Spouse Occupation Works at the [employer] ETOH Use Denies alcohol use Tobacco Use Start: Unknown Patient has never smoked Smoking Status Reviewed: 05/29/18 Patient has never smoked Exercise Type/Frequency Exercises sporadically Allergies, Adverse Reactions, Alerts Date Description Reaction Status Severity Comments 01/23/2003 PCN Active rash,swelling Medications Medication Date Status Form Strength Qnty SIG Indications Ordering Provider Doxycycline 05/24/19 Active Capsules 100mg 14cap 1 po bid N61.1 Girma Arango Hyyossi 19 s Mary Zarco Primidone 12/03/19 Active Tablets 50mg 720ta 6 [...] po Arthur, HCL 00 as Nohemi, needed [employer]TER Lantus Solostar Active Solution 100Unit/M 20 units Paddy, 00 Pen-Injec L Ekaterina chen ,CFNP Farxiga Active Tablets 5mg 1 by Unknown 00 mouth every day Fluconazole 05/10/19 Hx Tablets 150mg 2tabs take 1 Kelly B. 19 - tablet Eckenrode, Unknown today [employer] and may repeat in 3 days as needed Cephalexin 04/17/19 Hx Capsules 500mg 30cap 2 by N61.1 Lyla Pantoja 19 - s mouth MD Rene Unknown two times a day Percocet 04/06/20 Hx Tablets 5-325mg 20tab 1 tabs Kelly B. 16 - s by mouth Eckenrode, Unknown every 4 [employer] to 6 hours as needed pain Primidone 01/24/20 Hx Tablets 50mg 360ta 1 - 3 G25.0 Mere Cobb 15 - bs tabs by Grover Blakely.DAdy every night as directed Primidone 10/26/19 Hx [...] s 12/11/19 14 Glucosamine & Hx Packet [id number] Unknown Chrondroitin 00 - -800mg-mg With Vitamin [...] Pancho Juarez, Kristyn Lopez, 0.1 MG Mary, FAC, [facility] Technetium TC Administered Injection Pancho Meade 99M 013 Sushila Lopez M.D., [facility], Per Unit Dose [facility] Up To 40 Millicuries Immunizations Description No Information Available Vital Signs Date Vital Result Comment 05/29/2018 9:01am Heart Rate 72 /min Respiratory [...] Test Result H/L Range Note Wound 04/21/2018 [facility] Wound/Misc SEE RESULT 1, 2 Culture/Sensi [address] [place] [address] Stain [phone] Wound 04/17/2018 [facility] Wound/Misc SEE RESULT 3 Culture/Sensi [address] [place] [address] Stain [phone] Laboratory test 04/15/2016 [facility] Point of Care 152 mg/dL High 74-106 [address] [place] [address] [phone] Laboratory test 04/15/2016 [facility] Point of Care 196 mg/dL High 74-106 [address] [place] [address] [phone] Basic Metabolic 04/06/2016 [facility] Sodium 136 mmol/L N 133- 145 [address] [place] [address] [phone] Potassium 4.0 mmol/L N 3.5-5.0 Chloride 99 [...] >60 Egfr 88.5 N >60 9 1 [id number] 2 SEE RESULT BELOW Name: MAISHAOLINDA L : [address]: Girma Zarco MD Acct: [id number] Unit: [id number] AGE: 72 Location: [facility] Re04/21/18 SEX: F Status: REG REF SPEC: [id number] JANETH: 04/21/[address] [facility] [address]: Girma Zarco MD REQ: [id number] RECD: 04/21/18556 STATUS: COMP _ SOURCE: BREAST,LEF SPDESC: ORDERED: Culture Stain COMMENTS: [id number] Specimen Description LEFT BREAST ABSCESS Procedure Result [...] CONTINUED ON NEXT PAGE DEPARTMENT OF PATHOLOGY, [address] [place] [address] Dom Baldwin M.D. Director [facility] # [id number] Patient: OLINDA STOVALL [id number] (Continued) Specimen: [id number] Collected: 04/21/18 Received: 04/21/18 (Continued) Procedure Result Reported Site Wound/Misc Culture Final (continued) * These antibiotics are not available in the [facility] Formulary Contact the Microbiology Department for any additional antibiotic reporting. * ML - [facility] . END OF REPORT DEPARTMENT OF PATHOLOGY, [address] [place] [address] Dom Baldwin M.D. Director [facility] # [id number] 3 SEE RESULT BELOW Name: OLINDA STOVALL : [address]: Yoel Almanzar RPA Acct: [id number] Unit: [id number] AGE: 72 Location: [facility] Re04/17/18 SEX: F Status: REG REF SPEC: [id number] JANETH: 04/17/[address]: Yoel Almanzar RPA REQ: [id number] RECD: 04/17/18 STATUS: RES _ SOURCE: BREAST,LEF SPDESC: ORDERED: Culture Stain QUERIES: Specimen Description LEFT BREAST ABSCESS Procedure Result Reported Site Wound/Misc Gram Stain Final 04/17/18- 1552 ML 2+ Neutrophils 3+ Gram Positive Cocci Wound/Misc Culture Preliminary 04/18/18- 1022 ML Organism 1 STREP AGALACTIAE - (GROUP B) Quantity 2+ * ML - Main Lab . END OF REPORT DEPARTMENT OF PATHOLOGY, [address] [place] [address] Dom Baldwin M.D. Director [facility] # [id number] 4 Cardiac Nurse Practitioner: [id number] RENY VILLAGRAN 5 Cardiac Nurse Practitioner: [id number] Ketan Song 6 SDFS 04/15 7 Because [...] dialysis) Procedures Date Code Description Status 05/02/2018 97261 Mastotomy W/Explore/Drain Abscess Deep Completed 04/25/2018 25583 Puncture Aspiration Of Abcess Bulla Cyst Completed 04/21/2018 77217 Puncture Aspiration Of Abcess Bulla Cyst Completed 04/19/2018 71203 Puncture Aspiration Of Abcess Bulla Cyst Completed 04/17/2018 92708 Puncture Aspiration Of Abcess Bulla Cyst Completed 06/09/2017 66463162 Colonoscopy Completed 07/02/2016 68758 Treadmill Interp/Report Only Completed 07/02/2016 04651 Stress Test Supervsn W/Out I/R Completed 07/02/2016 59758 EKG, Interpretation Only Completed 04/15/2016 51600 Repair Hernia Incisional/Ventral Initial, Reducible Completed 04/15/2016 57945 EKG, Interpretation Only Completed 04/15/2016 16325 Implant For Incisional/Ventral Hernia Repair Completed 04/06/2016 09916 EKG, Interpretation Only Completed 07/11/2012 94303 Stress Test Completed 07/11/2012 24387 Myocardial Perfusion Imaging Tomographic (Spect) Completed Multiple Studies 07/07/2012 60314 ECHO Stress Test Incl Perf Contiuous ekg Monitoring Completed W/Phys Superv 07/07/2012 12118 Cardiac Event Monitor Completed 06/28/2012 04786 Holter Monitoring 24 HR New Completed 06/23/2012 62565 ECHO Transthoracic, Real-Time 2D With Doppler And Color Completed Flow 06/13/2012 20818 EKG Tracing & Interpretation Completed 01/29/2003 31527 ECHO/Stress Completed 01/29/2003 54790 Transesophageal Echocardiogram Completed 01/29/2003 18364 Treadmill Interp/Report Only Completed 01/29/2003 60569 Stress Test Supervsn W/Out I/R Completed 01/23/2003 67096 EKG Tracing & Interpretation Completed 01/15/2003 66506 Treadmill Interp/Report Only Completed 01/15/2003 48996 Stress Test Supervsn W/Out I/R Completed 01/08/2003 29847 Color Doppler Completed 01/08/2003 95725 Pulse Doppler & Continuous Wave Completed 01/08/2003 74734 Echocardiogram Completed Encounters Type Date Location Provider Dx Diagnosis Office Visit 04/17/2018 Surgical Yoel Fish N61.1 Abscess of the 11:30a [facility] DAYANA Almanzar breast and nipple Office Visit 03/09/2018 [place] Max Tee G25.0 Essential tremor 9:15a Services Of Kell Hernandez R53.82 Chronic fatigue, unspecified Office Visit 09/06/2017 [facility] Max Tee G25.0 Essential tremor 8:30a Services Of Correspondence Review Clerk M.DAdy Office Visit 12/02/2016 [facility] Max Blakely G25.0 Essential tremor 3:15p [facility] Papito.DAdy Office Visit 07/01/2016 [facility] Chris Mohr R07.2 Precordial pain 11:12a Assoc,alvin ABDULLAHI, Mary Hospitalists E11.9 Type 2 diabetes mellitus without complications I10 Essential (primary) hypertension Z85.3 Personal history of malignant neoplasm of breast Office Visit 04/15/2016 9:48a [facility] Teetee Shields, R55 Syncope and Assoc,alvin Hernandez collapse Hospitalists Z98.890 Other specified postprocedural states Z87.19 Personal history of other diseases of the digestive system Office Visit 03/03/2016 9:15a Surgical Girma Arango K42.9 Umbilical hernia [facility] Zarco M.D. without obstruction or gangrene Office Visit 01/23/2015 9:00a [place] Max Cobb G25.0 Essential tremor [facility] Mary Blakely G25.81 Restless legs syndrome Office Visit 12/11/2013 8:45a [facility] Max Cobb 333.1 Tremor Essential Services Of Kell Blakely M.D. & Other Forms 333.94 Restless Leg Syndrome Office Visit 07/10/2013 8:30a [facility] Max Cobb 333.1 Tremor Services Of Kell Blakely M.D. Essential & Other Forms Office Visit 02/27/2013 8:45a [facility] Max Cobb 333.1 Tremor Services Of Kell Blakely M.D. Essential & Other Forms Office Visit 10/13/2012 9:15a [facility] Max Morel.1 Tremor [facility] Mary Blakely Essential & Other Forms Office Visit 08/08/2012 9:00a [facility] Mere Cobb 333.1 Tremor [facility] Mary Blakely Essential & Other Forms Office Visit 06/13/2012 9:30a [facility] Pancho Meade 786.50 [facility] Mary Lopez, Unspec FACC, FASNC 785.1 Palpitations Office Visit 01/23/2003 10:00a [facility] Ben Tillman 786.59 Pain Chest Mary Goode Other 782.3 Edema Plan of Treatment Future Appointment(s):06/20/2018 8:15 am - Yoel Tee M.D. at [facility]05/15/2018 - Yoel Almanzar, PAN61.1 Abscess of the breast and dxbphdY41.01 Encounter for change or removal of surgical wound dressing
--- OUTSIDE RECORDS SUMMARY | 2018-06-16 13:18 | XMS REPORT | Continuity of Care Document ---
:1945 External Reference #:[id number] Author Name Concepción Davila Care Team Providers Name Role Phone Nohemi Gibson FNP Care Team Information Education Teacher Unavailable Mariusz Kulkarni MD Primary Care Physician Unavailable Payers Date Identification Numbers Payment Provider Subscriber Effective: Policy Number: [id number] Medicare Blue Ppo Olinda Stovall 2013 Group Number: [id number] [address] [address] PayID: [id number] [place] [address] Advance Directives Description No Information Available Problems [...] Lives With Spouse Occupation Works at the [employer] ETOH Use Denies alcohol use Tobacco Use Start: Unknown Patient has never smoked Smoking Status Reviewed: 06/02/18 Patient has never smoked Exercise Type/Frequency Exercises sporadically Allergies, Adverse Reactions, Alerts Date Description Reaction Status Severity Comments 01/23/2003 PCN Active rash,swelling Medications Medication Date Status Form Strength Qnty SIG Indications Ordering Provider Primidone 12/03/19 Active Tablets 50mg 720ta 6 tabs Yoel 17 bs by valentin Tee M.D. every night as directed Ondansetron 04/22/19 Active Tablets 4mg 12tab one Lyla Pantoja 17 Dispers s tablet MD Rene dissolve d under the tongue every 6 hours as needed for nausea Xanax 01/23/20 Active Tablets 0.5mg 1 po bid Ben Goode M.D. 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 19 - tablet Eckenrode, Unknown today [employer] and may repeat in 3 days as needed Cephalexin 04/17/19 Hx Capsules 500mg 30cap 2 by N61.1 Lyla Pantoja 19 - s mouth MD Rene Unknown two times a day Percocet 04/06/20 Hx Tablets 5-325mg 20tab 1 tabs Kelly B. 16 - s by mouth Eckenrode, Unknown every 4 [employer] to 6 hours as needed pain Primidone 01/24/20 Hx Tablets 50mg 360ta 1 - 3 G25.0 Mere Cobb 15 - bs tabs by Grover Blakely mouth M.DAdy every night as directed Primidone 10/26/19 Hx Tablets 250mg 90tab 1 tab by Faye Patel 15 - s mouth 12/03/19 every 17 night at bedtime Primidone 07/11/19 Hx Tablets 250mg 30tab 1 tab by Mere Cobb 14 - s mouth Zora, 12/11/19 every M.D. 14 night Primidone 10/14/19 Hx Tablets 50mg 450ta 5 tabs Susannah 13 - bs by mouth Ernesto, [employer] Unknown every night as directed Zocor 01/23/20 [...] s 12/11/19 14 Glucosamine & Hx Packet [id number] Unknown Chrondroitin 00 - -800mg-mg With Vitamin [...] Provider Inj, Administered Injection Pancho Juarez, 013 Lopez, 0.1 MG Mary, FACC, [facility] Technetium TC Administered Injection Pancho Meade 99M 013 Sushila Lopez M.D., FACC, Per Unit Dose FASNC Up To 40 Millicuries Immunizations Description No Information Available Vital Signs Date Vital Result Comment 06/02/2018 8:39am Heart Rate 78 /min Respiratory [...] Test Result H/L Range Note Wound 04/21/2018 [facility] Wound/Misc SEE RESULT 1, 2 Culture/Sensi [address] [place] [address] Stain [phone] Wound 04/17/2018 [facility] Wound/Misc SEE RESULT 3 Culture/Sensi [address] [place] [address] Stain [phone] Laboratory test 04/15/2016 [facility] Point of Care 152 mg/dL High 74-106 [address] Glucose [place], [place] [address] [phone] Laboratory test 04/15/2016 [facility] Point of Care 196 mg/dL High 74-106 [address] [place] [address] [phone] Basic Metabolic 04/06/2016 [facility] Sodium 136 mmol/L N 133- 145 [address] [place], [place] [address] [phone] Potassium 4.0 mmol/L N 3.5-5.0 Chloride 99 [...] >60 Egfr 88.5 N >60 9 1 [id number] 2 SEE RESULT BELOW Name: OLINDA STOVALL : [address]: Girma Zarco MD Acct: [id number] Unit: [id number] AGE: 72 Location: [facility] Re04/21/18 SEX: F Status: REG REF SPEC: [id number] JANETH: 04/21/[address] [facility] [address]: Girma Zarco MD REQ: [id number] RECD: 04/21/18 STATUS: COMP _ SOURCE: BREAST,LEF SPDESC: ORDERED: Culture Stain COMMENTS: [id number] Specimen Description LEFT BREAST ABSCESS Procedure Result [...] CONTINUED ON NEXT PAGE DEPARTMENT OF PATHOLOGY, [address] [place] [address] Dom Baldwin M.D. Director [facility] # [id number] Patient: OLINDA STOVALL [id number] (Continued) Specimen: [id number] Collected: 04/21/18 Received: 04/21/18 (Continued) Procedure Result Reported Site Wound/Misc Culture Final (continued) * These antibiotics are not available in the [facility] Formulary Contact the Microbiology Department for any additional antibiotic reporting. * - Main Lab . END OF REPORT DEPARTMENT OF PATHOLOGY, [address] [place] [address] Dom Baldwin M.D. Director [facility] # [id number] 3 SEE RESULT BELOW Name: OLINDA STOVALL : [address]: Yoel Almanzar RPA Acct: [id number] Unit: [id number] AGE: 72 Location: [facility] Re04/17/18 SEX: F Status: REG REF SPEC: [id number] JANETH: 04/17/18-[address] [facility] [address]: Yoel Almanzar RPA REQ: [id number] RECD: 04/17/18 STATUS: RES _ SOURCE: BREAST,LEF SPDESC: ORDERED: Culture Stain QUERIES: Specimen Description LEFT BREAST ABSCESS Procedure Result Reported Site Wound/Misc Gram Stain Final 04/17/18- 1552 ML 2+ Neutrophils 3+ Gram Positive Cocci Wound/Misc Culture Preliminary 04/18/18- 1022 ML Organism 1 STREP AGALACTIAE - (GROUP B) Quantity 2+ * ML - Main Lab . END OF REPORT DEPARTMENT OF PATHOLOGY, [address] [place] [address] Dom Baldwin M.D. Director [facility] # [id number] 4 A/C Technician: [id number] RENY VILLAGRAN 5 A/C Technician: [id number] Ketan Song 6 [facility] 04/15 7 Because ethnic data [...] dialysis) Procedures Date Code Description Status 05/02/2018 55149 Mastotomy W/Explore/Drain Abscess Deep Completed 04/25/2018 24287 Puncture Aspiration Of Abcess Bulla Cyst Completed 04/21/2018 60758 Puncture Aspiration Of Abcess Bulla Cyst Completed 04/19/2018 76292 Puncture Aspiration Of Abcess Bulla Cyst Completed 04/17/2018 52764 Puncture Aspiration Of Abcess Bulla Cyst Completed 06/09/2017 73706461 Colonoscopy Completed 07/02/2016 01248 Treadmill Interp/Report Only Completed 07/02/2016 52733 Stress Test Supervsn W/Out I/R Completed 07/02/2016 77205 EKG, Interpretation Only Completed 04/15/2016 85155 Repair Hernia Incisional/Ventral Initial, Reducible Completed 04/15/2016 37499 EKG, Interpretation Only Completed 04/15/2016 06075 Implant For Incisional/Ventral Hernia Repair Completed 04/06/2016 26092 EKG, Interpretation Only Completed 07/11/2012 99445 Stress Test Completed 07/11/2012 45898 Myocardial Perfusion Imaging Tomographic (Spect) Completed Multiple Studies 07/07/2012 93338 ECHO Stress Test Incl Perf Contiuous ekg Monitoring Completed W/Phys Superv 07/07/2012 39730 Cardiac Event Monitor Completed 06/28/2012 60963 Holter Monitoring 24 HR New Completed 06/23/2012 91597 ECHO Transthoracic, Real-Time 2D With Doppler And Color Completed Flow 06/13/2012 19601 EKG Tracing & Interpretation Completed 01/29/2003 87183 ECHO/Stress Completed 01/29/2003 21397 Transesophageal Echocardiogram Completed 01/29/2003 16838 Treadmill Interp/Report Only Completed 01/29/2003 96200 Stress Test Supervsn W/Out I/R Completed 01/23/2003 73574 EKG Tracing & Interpretation Completed 01/15/2003 65253 Treadmill Interp/Report Only Completed 01/15/2003 34535 Stress Test Supervsn W/Out I/R Completed 01/08/2003 05754 Color Doppler Completed 01/08/2003 11411 Pulse Doppler & Continuous Wave Completed 01/08/2003 49746 Echocardiogram Completed Encounters Type Date Location Provider Dx Diagnosis Office Visit 04/17/2018 [facility] Yoel Fish N61.1 Abscess of the 11:30a [facility] DAYANA Almanzar breast and nipple Office Visit 03/09/2018 [facility] Yoel Tee G25.0 Essential tremor 9:15a [facility] Mary R53.82 Chronic fatigue, unspecified Office Visit 09/06/2017 [place] Max Tee G25.0 Essential tremor 8:30a [facility] Mary Office Visit 12/02/2016 [place] Max Blakely G25.0 Essential tremor 3:15p [facility] Mary Office Visit 07/01/2016 [facility] Chris Mohr R07.2 Precordial pain 11:12a Assocalvin II, M.D. Hospitalists E11.9 Type 2 diabetes mellitus without complications I10 Essential (primary) hypertension Z85.3 Personal history of malignant neoplasm of breast Office Visit 04/15/2016 9:48a [facility] Teetee Shields, R55 Syncope and Assoc,alvin Hernandez collapse Hospitalists Z98.890 Other specified postprocedural states Z87.19 Personal history of other diseases of the digestive system Office Visit 03/03/2016 9:15a Surgical Girma Arango K42.9 Umbilical [facility]nia [facility] Zarco M.D. without obstruction or gangrene Office Visit 01/23/2015 9:00a [place] Max Cobb G25.0 Essential tremor Services Of Kell Blakely M.D. G25.81 Restless legs syndrome Office Visit 12/11/2013 8:45a [place] Max Cobb 333.1 Tremor Essential Services [facility] Kell Blakely M.D. & Other Forms 333.94 Restless Leg Syndrome Office Visit 07/10/2013 8:30a [place] Max Cobb 333.1 Tremor Services Of Kell Blakely M.D. Essential & Other Forms Office Visit 02/27/2013 8:45a [place] Max Cobb 333.1 Tremor [facility] Kell Blakely M.D. Essential & Other Forms Office Visit 10/13/2012 9:15a [facility] Mere Cobb 333.1 Tremor Services Of Kell Blakely M.D. Essential & Other Forms Office Visit 08/08/2012 9:00a [facility] Mere Cobb 333.1 Tremor Services Of Kell Blakely M.D. Essential & Other Forms Office Visit 06/13/2012 9:30a [facility] Pancho Deshaun 786.50 Pain Chest Of Kell Lopez M.D., Unspec FAC, FASNC 785.1 Palpitations Office Visit 01/23/2003 10:00a [facility] Ben Tillman 786.59 Pain Chest Mary Goode Other 782.3 Edema Plan of Treatment Future Appointment(s):06/09/2018 8:30 am - Nurse Visit Surg Assoc at [facility]06/07/2018 8:30 am - Girma Zarco M.D. at [facility]06/20/2018 8:15 am - Yoel Tee M.D. at [facility]
--- OUTSIDE RECORDS SUMMARY | 2018-06-16 13:18 | XMS REPORT | Continuity of Care Document ---
:1945 External Reference #:[id number] Author Name Concepción Davila Care Team Providers Name Role Phone Nohemi Gibson FNP Care Team Information Supply Chain Assistant Unavailable Mariusz Kulkarni MD Primary Care Physician Unavailable Payers Date Identification Numbers Payment Provider Subscriber Effective: Policy Number: [id number] Medicare Blue Ppo Olinda Stovall 2013 Group Number: [id number] [address] [address] PayID: [id number] [place] [address] Advance Directives Description No Information Available Problems [...] Lives With Spouse Occupation Works at the [employer] ETOH Use Denies alcohol use Tobacco Use [...] po Arthur, HCL 00 as Nohemi, needed CONTACT CENTER CONSULTANT Lantus Solostar Active Solution 100Unit/M 20 units Paddy, 00 Pen-Injec L Ekaterina Valdivia t ,CFNP Farxiga Active Tablets 5mg 1 by Unknown 00 mouth every day Doxycycline 05/24/19 Hx Capsules 100mg 14cap 1 po bid N61.1 Girma Arango Hyclate 19 - s Mary Zarco Unknown Fluconazole 05/10/19 Hx Tablets 150mg 2tabs take 1 Kelly B. 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 16 - s by mouth Eckenrode, Unknown every 4 B[employer]BALL [employer] MANAGER to 6 hours as needed pain Primidone [...] Susannah 13 - bs by mouth Ernesto, B[employer]ALL [employer] MANAGER Unknown every night as directed Zocor 01/23/20 Hx Tablets 20mg 90tab one qhs Bne Tillman 03 - s Mary Goode 02/28/20 [...] s 12/11/19 14 Glucosamine & Hx Packet [id number] Unknown Chrondroitin 00 - -800mg-mg With Vitamin [...] Juarez, 013 Lopez, 0.1 MG Mary, FACC, [facility] Technetium TC Administered Injection Pancho Meade [...] Test Result H/L Range Note Wound 04/21/2018 [facility] Wound/Misc SEE RESULT 1, 2 Culture/Sensi [address] [address] Stain [phone] Wound 04/17/2018 [facility] Wound/Misc SEE RESULT 3 Culture/Sensi [address] [address] Stain [phone] Laboratory test 04/15/2016 [facility] Point of Care 152 mg/dL High 74-106 [address] Glucose [place], [place] [address] [phone] Laboratory test 04/15/2016 [facility] Point of Care 196 mg/dL High 74-106 [address] [place] [address] [phone] Basic Metabolic 04/06/2016 [facility] Sodium 136 mmol/L N 133- 145 [address] [place], [place] [address] [phone] Potassium 4.0 mmol/L N 3.5-5.0 Chloride 99 [...] >60 Egfr 88.5 N >60 9 1 [id number] 2 SEE RESULT BELOW Name: OLINDA STOVALL : [address]: Girma Zarco MD Acct: [id number] Unit: [id number] AGE: 72 Location: [facility] Re04/21/18 SEX: F Status: REG REF SPEC: [id number] JANETH: 04/21/[address] [facility] [address]: Girma Zarco MD REQ: [id number] RECD: 04/21/18 STATUS: COMP _ SOURCE: BREAST,LEF SPDESC: ORDERED: Culture Stain COMMENTS: [id number] Specimen Description LEFT BREAST ABSCESS Procedure Result [...] CONTINUED ON NEXT PAGE DEPARTMENT OF PATHOLOGY, [address] [place] [address] Dom Baldwin M.D. Director [facility] # [id number] Patient: OLINDA STOVALL [id number] (Continued) Specimen: [id number] Collected: 04/21/18 Received: 04/21/18 (Continued) Procedure Result Reported Site Wound/Misc Culture Final (continued) * These antibiotics are not available in the [facility] Formulary Contact the Microbiology Department for any additional antibiotic reporting. * - Main Lab . END OF REPORT DEPARTMENT OF PATHOLOGY, [address] [place] [address] Dom Baldwin M.D. Director [facility] # [id number] 3 SEE RESULT BELOW Name: OLINDA STOVALL : [address]: Yoel Almanzar RPA Acct: [id number] Unit: [id number] AGE: 72 Location: [facility] Re04/17/18 SEX: F Status: REG REF SPEC: [id number] JANETH: 04/17/18-[address] [facility] [address]: Yoel Almanzar RPA REQ: [id number] RECD: 04/17/18 STATUS: RES _ SOURCE: BREAST,LEF SPDESC: ORDERED: Culture Stain QUERIES: Specimen Description LEFT BREAST ABSCESS Procedure Result Reported Site Wound/Misc Gram Stain Final 04/17/18- 1552 ML 2+ Neutrophils 3+ Gram Positive Cocci Wound/Misc Culture Preliminary 04/18/18- 1022 ML Organism 1 STREP AGALACTIAE - (GROUP B) Quantity 2+ * ML - Main Lab . END OF REPORT DEPARTMENT OF PATHOLOGY, [address] [place] [address] Dom Baldwin M.D. Director [facility] # [id number] 4 Career Development Counselor: [id number] RENY VILLAGRAN 5 Career Development Counselor: [id number] Ketan Song 6 [facility] 04/15 7 Because ethnic data is [...] dialysis) Procedures Date Code Description Status 05/02/2018 28050 Mastotomy W/Explore/Drain Abscess Deep Completed 04/25/2018 44612 Puncture Aspiration Of Abcess Bulla Cyst Completed 04/21/2018 08561 Puncture Aspiration Of Abcess Bulla Cyst Completed 04/19/2018 27468 Puncture Aspiration Of Abcess Bulla Cyst Completed 04/17/2018 74904 Puncture Aspiration Of Abcess Bulla Cyst Completed 06/09/2017 01894516 Colonoscopy Completed 07/02/2016 64143 Treadmill Interp/Report Only Completed 07/02/2016 19590 Stress Test Supervsn W/Out I/R Completed 07/02/2016 25768 EKG, Interpretation Only Completed 04/15/2016 18940 Repair Hernia Incisional/Ventral Initial, Reducible Completed 04/15/2016 79367 EKG, Interpretation Only Completed 04/15/2016 40940 Implant For Incisional/Ventral Hernia Repair Completed 04/06/2016 88791 EKG, Interpretation Only Completed 07/11/2012 44830 Stress Test Completed 07/11/2012 04681 Myocardial Perfusion Imaging Tomographic (Spect) Completed Multiple Studies 07/07/2012 59652 ECHO Stress Test Incl Perf Contiuous ekg Monitoring Completed W/Phys Superv 07/07/2012 11805 Cardiac Event Monitor Completed 06/28/2012 15271 Holter Monitoring 24 HR New Completed 06/23/2012 13047 ECHO Transthoracic, Real-Time 2D With Doppler And Color Completed Flow 06/13/2012 61635 EKG Tracing & Interpretation Completed 01/29/2003 02822 ECHO/Stress Completed 01/29/2003 08445 Transesophageal Echocardiogram Completed 01/29/2003 56885 Treadmill Interp/Report Only Completed 01/29/2003 44505 Stress Test Supervsn W/Out I/R Completed 01/23/2003 72435 EKG Tracing & Interpretation Completed 01/15/2003 53132 Treadmill Interp/Report Only Completed 01/15/2003 20448 Stress Test Supervsn W/Out I/R Completed 01/08/2003 87166 Color Doppler Completed 01/08/2003 45564 Pulse Doppler & Continuous Wave Completed 01/08/2003 23864 Echocardiogram Completed Encounters Type Date Location Provider Dx Diagnosis Office Visit 04/17/2018 [facility] Yoel Fish N61.1 Abscess of the 11:30a [facility] DAYANA Almanzar breast and nipple Office Visit 03/09/2018 [facility] Yoel Tee G25.0 Essential tremor 9:15a [facility] Mary R53.82 Chronic fatigue, unspecified Office Visit 09/06/2017 [place] Max Tee G25.0 Essential tremor 8:30a [facility] Mary Office Visit 12/02/2016 [place] Max Blakely G25.0 Essential tremor 3:15p Services Of Architectural Representative Mary Office Visit 07/01/2016 [facility] Chris Mohr R07.2 Precordial pain 11:12a Assocalvin II, M.D. Hospitalists E11.9 Type 2 diabetes mellitus without complications I10 Essential (primary) hypertension Z85.3 Personal history of malignant neoplasm of breast Office Visit 04/15/2016 9:48a [facility] Teetee Shields, R55 Syncope and Assoc,alvin Hernandez collapse Hospitalists Z98.890 Other specified postprocedural states Z87.19 Personal history of other diseases of the digestive system Office Visit 03/03/2016 9:15a [facility] Girma Arango K42.9 Umbilical [facility]nia [facility] Zarco M.D. without obstruction or gangrene Office Visit 01/23/2015 9:00a [place] Max Cobb G25.0 Essential tremor [facility] Blakely M.D. G25.81 Restless legs syndrome Office Visit 12/11/2013 8:45a [place] Max Cobb 333.1 Tremor Essential Services Of Kell Blakely M.D. & Other Forms 333.94 Restless Leg Syndrome Office Visit 07/10/2013 8:30a [place] Max Cobb 333.1 Tremor Services Of Kell Blakely M.D. Essential & Other Forms Office Visit 02/27/2013 8:45a [place] Max Cobb 333.1 Tremor Services Of Kell Blakely M.D. Essential & Other Forms Office Visit 10/13/2012 9:15a [facility] Mere Cobb 333.1 Tremor Services Of Kell Blakely M.D. Essential & Other Forms Office Visit 08/08/2012 9:00a [facility] Mere Cobb 333.1 Tremor Services Of Kell Blakely M.D. Essential & Other Forms Office Visit 06/13/2012 9:30a [facility] Pancho Deshaun 786.50 Pain Chest Of Kell Lopez M.D., Unspec [facility], FASNC 785.1 Palpitations Office Visit 01/23/2003 10:00a [facility] Ben Tillman 786.59 Pain Chest Mary Goode Other 782.3 Edema Plan of Treatment Future Appointment(s):06/20/2018 8:15 am - Yoel Tee M.D. at [place] [facility]06/02/2018 - Girma Zarco M.D.N61.1 Abscess of the breast and nippleFollow up:2/25 ML retail store assistant
--- OUTSIDE RECORDS SUMMARY | 2018-06-16 13:18 | XMS REPORT | Continuity of Care Document ---
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 Mariusz Kulkarni MD Primary Care Physician Unavailable Payers Date Identification Numbers Payment Provider Subscriber Effective: Policy Number: [id number] Medicare Blue Ppo Olinda Stovall 2013 Group Number: [id number] [address] [address] PayID: [id number] [place] [address] Advance Directives Description No Information Available Problems [...] Lives With Spouse Occupation Works at the [employer] ETOH Use Denies alcohol use Tobacco Use [...] po Arthur, HCL 00 as Nohemi, 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 Unknown Fluconazole 05/10/19 Hx Tablets 150mg 2tabs take 1 Kelly B. 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 16 - s by mouth Eckenrode, Unknown every 4 ROCK ROOM WORKER to 6 hours as needed pain [...] s 12/11/19 14 Glucosamine & Hx Packet [id number] Unknown Chrondroitin 00 - -800mg-mg With Vitamin [...] Injection Pancho Deshaun 99M 013 John TetrofisabellainMary, [facility], Per Unit Dose [facility] Up To 40 Millicuries Immunizations Description No [...] Test Result H/L Range Note Wound 04/21/2018 [facility] Wound/Misc SEE RESULT 1, 2 Culture/Sensi [address] [place] [address] Stain [phone] Wound 04/17/2018 [facility] Wound/Misc SEE RESULT 3 Culture/Sensi [address] [place] [address] Stain [phone] Laboratory test 04/15/2016 [facility] Point of Care 152 mg/dL High 74-106 [address] [place] [address] [phone] Laboratory test 04/15/2016 [facility] Point of Care 196 mg/dL High 74-106 [address] Glucose [place], [place] [address] [phone] Basic Metabolic 04/06/2016 [facility] Sodium 136 mmol/L N 133- 145 [address] [place] [address] [phone] Potassium 4.0 mmol/L N 3.5-5.0 Chloride 99 [...] >60 Egfr 88.5 N >60 9 1 [id number] 2 SEE RESULT BELOW Name: OLINDA STOVALL : [address]: Girma Zarco MD Acct: [id number] Unit: [id number] AGE: 72 Location: [facility] Re04/21/18 SEX: F Status: REG REF SPEC: [id number] JANETH: 04/21/[address]: Girma Zarco MD REQ: [id number] RECD: 04/21/18 STATUS: COMP _ SOURCE: BREAST,LEF SPDESC: ORDERED: Culture Stain COMMENTS: [id number] Specimen Description LEFT BREAST ABSCESS Procedure Result [...] CONTINUED ON NEXT PAGE DEPARTMENT OF PATHOLOGY, [address] [place] [place] [address] Dom Baldwin M.D. Director [facility] # [id number] Patient: OLINDA STOVALL [id number] (Continued) Specimen: [id number] Collected: 04/21/18 Received: 04/21/18 (Continued) Procedure Result Reported Site Wound/Misc Culture Final (continued) * These antibiotics are not available in the [facility] Formulary Contact the Microbiology Department for any additional antibiotic reporting. * ML - Main Lab . END OF REPORT DEPARTMENT OF PATHOLOGY, [address] [place] [address] Dom Baldwin M.D. Director [facility] # [id number] 3 SEE RESULT BELOW Name: RIZWANASATNAMANGIEAprilOLINDA : [address]: Yoel Almanzar RPA Acct: [id number] Unit: [id number] AGE: 72 Location: [facility] Re04/17/18 SEX: F Status: REG REF SPEC: [id number] JANETH: 04/17/18 [facility] DR: Yoel Almanzar RPA REQ: [id number] RECD: 04/17/18 STATUS: RES _ SOURCE: BREAST,LEF SPDESC: ORDERED: Culture Stain QUERIES: Specimen Description LEFT BREAST ABSCESS Procedure Result Reported Site Wound/Misc Gram Stain Final 04/17/18- 1552 ML 2+ Neutrophils 3+ Gram Positive Cocci Wound/Misc Culture Preliminary 04/18/18- 1022 ML Organism 1 STREP AGALACTIAE - (GROUP B) Quantity 2+ * ML - Main Lab . END OF REPORT DEPARTMENT OF PATHOLOGY, [address] [place] [address] Dom Baldwin M.D. Director [facility] # [id number] 4 Services Rep: [id number] ERNY VILLAGRAN 5 Services Rep: [id number] Ketan Song 6 SDFS 04/15 7 Because [...] dialysis) Procedures Date Code Description Status 05/02/2018 31239 Mastotomy W/Explore/Drain Abscess Deep Completed 04/25/2018 58409 Puncture Aspiration Of Abcess Bulla Cyst Completed 04/21/2018 63402 Puncture Aspiration Of Abcess Bulla Cyst Completed 04/19/2018 68189 Puncture Aspiration Of Abcess Bulla Cyst Completed 04/17/2018 93415 Puncture Aspiration Of Abcess Bulla Cyst Completed 06/09/2017 65764689 Colonoscopy Completed 07/02/2016 61433 Treadmill Interp/Report Only Completed 07/02/2016 83709 Stress Test Supervsn W/Out I/R Completed 07/02/2016 15717 EKG, Interpretation Only Completed 04/15/2016 99323 Repair Hernia Incisional/Ventral Initial, Reducible Completed 04/15/2016 87334 EKG, Interpretation Only Completed 04/15/2016 22290 Implant For Incisional/Ventral Hernia Repair Completed 04/06/2016 54479 EKG, Interpretation Only Completed 07/11/2012 02158 Stress Test Completed 07/11/2012 18451 Myocardial Perfusion Imaging Tomographic (Spect) Completed Multiple Studies 07/07/2012 47165 ECHO Stress Test Incl Perf Contiuous ekg Monitoring Completed W/Phys Superv 07/07/2012 62326 Cardiac Event Monitor Completed 06/28/2012 25503 Holter Monitoring 24 HR New Completed 06/23/2012 62040 ECHO Transthoracic, Real-Time 2D With Doppler And Color Completed Flow 06/13/2012 48454 EKG Tracing & Interpretation Completed 01/29/2003 56512 ECHO/Stress Completed 01/29/2003 73898 Transesophageal Echocardiogram Completed 01/29/2003 10820 Treadmill Interp/Report Only Completed 01/29/2003 53624 Stress Test Supervsn W/Out I/R Completed 01/23/2003 40252 EKG Tracing & Interpretation Completed 01/15/2003 93824 Treadmill Interp/Report Only Completed 01/15/2003 36001 Stress Test Supervsn W/Out I/R Completed 01/08/2003 44456 Color Doppler Completed 01/08/2003 65786 Pulse Doppler & Continuous Wave Completed 01/08/2003 82706 Echocardiogram Completed Encounters Type Date Location Provider Dx Diagnosis Office Visit 04/17/2018 [facility] Yoel Fish N61.1 Abscess of the 11:30a [facility] Kendall breast and nipple Office Visit 03/09/2018 [place] Max Tee G25.0 Essential tremor 9:15a Services Of [facility] Hernandez R53.82 Chronic fatigue, unspecified Office Visit 09/06/2017 [place] Nasreen Ritchie5.0 Essential tremor 8:30a [facility] Hernandez Office Visit 12/02/2016 [place] Max Blakely G25.0 Essential tremor 3:15p Services Of [facility] Hernandez Office Visit 07/01/2016 [facility] Chris Mohr R07.2 Precordial pain 11:12a Assalvin harkins II, M.D. Hospitalists E11.9 Type 2 diabetes mellitus without complications I10 Essential (primary) hypertension Z85.3 Personal history of malignant neoplasm of breast Office Visit 04/15/2016 9:48a [facility] Teetee Shields, R55 Syncope and Assalvin harkins M.D. collapse Hospitalists Z98.890 Other specified postprocedural states Z87.19 Personal history of other diseases of the digestive system Office Visit 03/03/2016 9:15a [facility] Girma Arango K42.9 [facility] Zarco M.D. without obstruction or gangrene Office Visit 01/23/2015 9:00a [place] Max Cobb G25.0 Essential tremor Services [facility] Kell Blakely M.D. G25.81 Restless legs syndrome Office Visit 12/11/2013 8:45a [place] Max Cobb 333.1 Tremor Essential Services Of Kell Blakely M.D. & Other Forms 333.94 Restless Leg Syndrome Office Visit 07/10/2013 8:30a [place] [facility] Mere Cobb 333.1 Tremor Services Of Kell Blakely M.D. Essential & Other Forms Office Visit 02/27/2013 8:45a [place] [facility] Mere Cobb 333.1 Tremor Services Of Kell Blakely M.D. Essential & Other Forms Office Visit 10/13/2012 9:15a [place] [facility] Mere Cobb 333.1 Tremor Services Of Kell Blakely M.D. Essential & Other Forms Office Visit 08/08/2012 9:00a [place] [facility] Mere Cobb 333.1 Tremor Services Of Kell Blakely M.D. Essential & Other Forms Office Visit 06/13/2012 9:30a [facility] Pancho Meade 786.50 Pain Chest Of Kell Lopez M.D., Unspec [facility], FASNC 785.1 Palpitations Office Visit 01/23/2003 10:00a [facility] Ben Tillman 786.59 Pain Chest Mary Goode Other 782.3 Edema Plan of Treatment Future Appointment(s):06/09/2018 8:30 am - Nurse Visit [facility]06/20/2018 8:15 am - Yoel Tee M.D. at [place] [facility]06/07/2018 - Girma Zarco M.D.N61.1 Abscess of the breast and crdzvbZ33.01 Encounter for change or removal of surgical wound dressingNew Medication:Doxycycline Hyclate 100 mg - 1 by mouth twice a dayReferral:Chato Jeffrey MD, Infectious Diseases
--- OUTSIDE RECORDS SUMMARY | 2018-06-16 13:18 | XMS REPORT | Continuity of Care Document ---
:1945 External Reference #:[id number] Author Name Nohemi Tineo Care Team Providers Name Role Phone Nohemi Gibson FNP Care Team Information Events Intern Unavailable Mariusz Kulkarni MD Primary Care Physician Unavailable Payers Date Identification Numbers Payment Provider Subscriber Effective: Policy Number: [id number] Medicare Blue Ppo Olinda Stovall 2013 Group Number: [id number] [address] Pay[address]: [id number] [place] [address] Advance Directives Description No Information Available Problems [...] Lives With Spouse Occupation Works at the [employer] ETOH Use Denies alcohol use Tobacco Use Start: Unknown Patient has never smoked Smoking Status Reviewed: 05/26/18 Patient has never smoked Exercise Type/Frequency Exercises [...] po Arthur, HCL 00 as Nohemi, 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 16 - s by mouth Eckenrode, Unknown every 4 AMUSEMENT MACHINE MECHANIC to 6 hours as needed pain Primidone [...] s 12/11/19 14 Glucosamine & Hx Packet [id number] Unknown Chrondroitin 00 - -800mg-mg With Vitamin [...] Juarez, Kristyn Lopez, 0.1 MG Mary, FAC, [facility] Technetium TC Administered Injection Pancho Meade 99M 013 Sushila Lopez M.D., [facility], Per Unit Dose [facility] Up To 40 Millicuries Immunizations Description No Information Available Vital Signs Date Vital Result Comment 05/26/2018 9:34am Heart Rate 76 /min Respiratory [...] Test Result H/L Range Note Wound 04/21/2018 [facility] Wound/Misc SEE RESULT 1, 2 Culture/Sensi [address] [address] Stain [phone] Wound 04/17/2018 [facility] Wound/Misc SEE RESULT 3 Culture/Sensi [address] [place] [address] Stain [phone] Laboratory test 04/15/2016 [facility] Point of Care 152 mg/dL High 74-106 [address] [place] [address] [phone] Laboratory test 04/15/2016 [facility] Point of Care 196 mg/dL High 74-106 [address] [place] [address] [phone] Basic Metabolic 04/06/2016 [facility] Sodium 136 mmol/L N 133- 145 [address] [place], [place] [address] [phone] Potassium 4.0 mmol/L N 3.5-5.0 Chloride 99 [...] >60 Egfr 88.5 N >60 9 1 [id number] 2 SEE RESULT BELOW Name: OLINDA STOVALL : [address]: Girma Zarco MD Acct: [id number] Unit: [id number] AGE: 72 Location: [facility] Re04/21/18 SEX: F Status: REG REF SPEC: [id number] JANETH: 04/21/[address] [facility] [address]: Girma Zarco MD REQ: [id number] RECD: 04/21/18 STATUS: COMP _ SOURCE: BREAST,LEF SPDESC: ORDERED: Culture Stain COMMENTS: [id number] Specimen Description LEFT BREAST ABSCESS Procedure Result [...] CONTINUED ON NEXT PAGE DEPARTMENT OF PATHOLOGY, [address] [place] [address] Dom Baldwin M.D. Director [facility] # [id number] Patient: OLINDA STOVALL [id number] (Continued) Specimen: [id number] Collected: 04/21/18 Received: 04/21/18 (Continued) Procedure Result Reported Site Wound/Misc Culture Final (continued) * These antibiotics are not available in the [facility] Formulary Contact the Microbiology Department for any additional antibiotic reporting. * ML - Main Lab . END OF REPORT DEPARTMENT OF PATHOLOGY, [address] [place] [address] Dom Baldwin M.D. Director [facility] # [id number] 3 SEE RESULT BELOW Name: OLINDA STOVALL : [address]: Yoel Almanzar RPA Acct: [id number] Unit: [id number] AGE: 72 Location: [facility] Re04/17/18 SEX: F Status: REG REF SPEC: [id number] JANETH: 04/17/[address]: Yoel Almanzar RPA REQ: [id number] RECD: 04/17/18 STATUS: RES _ SOURCE: BREAST,LEF SPDESC: ORDERED: Culture Stain QUERIES: Specimen Description LEFT BREAST ABSCESS Procedure Result Reported Site Wound/Misc Gram Stain Final 04/17/18- 1552 ML 2+ Neutrophils 3+ Gram Positive Cocci Wound/Misc Culture Preliminary 04/18/18- 1022 ML Organism 1 STREP AGALACTIAE - (GROUP B) Quantity 2+ * ML - Main Lab . END OF REPORT DEPARTMENT OF PATHOLOGY, [address] [place] [address] Dom Baldwin M.D. Director [facility] # [id number] 4 Pulp House Supervisor: [id number] RENY VILLAGRAN 5 Pulp House Supervisor: [id number] Ketan Song 6 SDFS 04/15 7 Because [...] dialysis) Procedures Date Code Description Status 05/02/2018 61151 Mastotomy W/Explore/Drain Abscess Deep Completed 04/25/2018 93341 Puncture Aspiration Of Abcess Bulla Cyst Completed 04/21/2018 71849 Puncture Aspiration Of Abcess Bulla Cyst Completed 04/19/2018 60582 Puncture Aspiration Of Abcess Bulla Cyst Completed 04/17/2018 17038 Puncture Aspiration Of Abcess Bulla Cyst Completed 06/09/2017 96587851 Colonoscopy Completed 07/02/2016 46494 Treadmill Interp/Report Only Completed 07/02/2016 81786 Stress Test Supervsn W/Out I/R Completed 07/02/2016 67631 EKG, Interpretation Only Completed 04/15/2016 31618 Repair Hernia Incisional/Ventral Initial, Reducible Completed 04/15/2016 34359 EKG, Interpretation Only Completed 04/15/2016 23628 Implant For Incisional/Ventral Hernia Repair Completed 04/06/2016 04005 EKG, Interpretation Only Completed 07/11/2012 85413 Stress Test Completed 07/11/2012 99941 Myocardial Perfusion Imaging Tomographic (Spect) Completed Multiple Studies 07/07/2012 00122 ECHO Stress Test Incl Perf Contiuous ekg Monitoring Completed W/Phys Superv 07/07/2012 44419 Cardiac Event Monitor Completed 06/28/2012 28081 Holter Monitoring 24 HR New Completed 06/23/2012 84182 ECHO Transthoracic, Real-Time 2D With Doppler And Color Completed Flow 06/13/2012 54934 EKG Tracing & Interpretation Completed 01/29/2003 89615 ECHO/Stress Completed 01/29/2003 99512 Transesophageal Echocardiogram Completed 01/29/2003 87101 Treadmill Interp/Report Only Completed 01/29/2003 79114 Stress Test Supervsn W/Out I/R Completed 01/23/2003 77417 EKG Tracing & Interpretation Completed 01/15/2003 23135 Treadmill Interp/Report Only Completed 01/15/2003 21242 Stress Test Supervsn W/Out I/R Completed 01/08/2003 43072 Color Doppler Completed 01/08/2003 15934 Pulse Doppler & Continuous Wave Completed 01/08/2003 40247 Echocardiogram Completed Encounters Type Date Location Provider Dx Diagnosis Office Visit 04/17/2018 Surgical Yoel Fish N61.1 Abscess of the 11:30a [facility] DAYANA Almanzar breast and nipple Office Visit 03/09/2018 [place] Max Tee, G25.0 Essential tremor 9:15a [facility] R53.82 Chronic fatigue, unspecified Office Visit 09/06/2017 [place] Max Tee G25.0 Essential tremor 8:30a [facility] Office Visit 12/02/2016 [place] Max Blakely G25.0 Essential tremor 3:15p [facility] Office Visit 07/01/2016 [facility] Chris Mohr R07.2 Precordial pain 11:12a Assalvin harkins II, M.D. Hospitalists E11.9 Type 2 diabetes mellitus without complications I10 Essential (primary) hypertension Z85.3 Personal history of malignant neoplasm of breast Office Visit 04/15/2016 9:48a [facility] Teetee Shields, R55 Syncope and Assalvin harkins M.D. collapse Hospitalists Z98.890 Other specified postprocedural states Z87.19 Personal history of other diseases of the digestive system Office Visit 03/03/2016 9:15a Surgical Girma Arango K42.9 Umbilical [facility]nia [facility] M.D. without obstruction or gangrene Office Visit 01/23/2015 9:00a [place] Max Cobb G25.0 Essential tremor [facility] Blakely M.D. G25.81 Restless legs syndrome Office Visit 12/11/2013 8:45a [place] Max Cobb 333.1 Tremor Essential [facility] Blakely M.D. & Other Forms 333.94 Restless Leg Syndrome Office Visit 07/10/2013 8:30a [place] Max Cobb 333.1 Tremor [facility] Blakely M.D. Essential & Other Forms Office Visit 02/27/2013 8:45a [place] Max Cobb 333.1 Tremor [facility] Blakely M.D. Essential & Other Forms Office Visit 10/13/2012 9:15a [place] Max Cobb 333.1 Tremor [facility] Blakely M.D. Essential & Other Forms Office Visit 08/08/2012 9:00a [facility] Mere Cobb 333.1 Tremor [facility] Blakely M.D. Essential & Other Forms Office Visit 06/13/2012 9:30a [facility] Pancho Meade 786.50 Pain [facility] Lopez M.D., Unspec FAC, FASNC 785.1 Palpitations Office Visit 01/23/2003 10:00a [facility] Ben Tillman 786.59 Pain Chest Mary Goode Other 782.3 Edema Plan of Treatment Future Appointment(s):05/29/2018 8:30 am - Nurse [facility]06/20/2018 8:15 am - Yoel Tee M.D. at [place] [facility]05/26/2018 - Girma Zarco M.D.N61.1 Abscess of the breast and nippleFollow up:05/29 with midlevel
--- OUTSIDE RECORDS SUMMARY | 2018-06-16 13:19 | XMS REPORT | Continuity of Care Document ---
:1945 External Reference #:[id number] Author Name Concepción Davila Care Team Providers Name Role Phone Nohemi Gibson FNP Care Team Information Electrical Mechanical Technician Unavailable Mariusz Kulkarni MD Primary Care Physician Unavailable Payers Date Identification Numbers Payment Provider Subscriber Effective: Policy Number: [id number] Medicare Blue Ppo Olinda Stovall 2013 Group Number: [id number] [address] [address] PayID: [id number] [place] [address] Advance Directives Description No Information Available Problems [...] Lives With Spouse Occupation Works at the [employer] ETOH Use Denies alcohol use Tobacco Use Start: Unknown Patient has never smoked Smoking Status Reviewed: 05/19/18 Patient has never smoked Exercise Type/Frequency Exercises [...] po Arthur, HCL 00 as Nohemi, needed 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 19 - tablet Eckenrode, Unknown today HIGHWAY ENGINEERING TEACHER and may repeat in 3 days as needed Cephalexin 04/17/19 Hx Capsules 500mg 30cap 2 by N61.1 Lyla Pantoja 19 - s mouth MD Rene Unknown two times a day Percocet 04/06/20 Hx Tablets 5-325mg 20tab 1 tabs Kelly B. 16 - s by mouth Eckenrode, Unknown every [address] ENGINEERING TEACHER to 6 hours as needed pain Primidone 01/24/20 Hx Tablets 50mg 360ta 1 - 3 G25.0 Mere Cobb 15 - bs tabs by Grover Blakely mouth M.D. every night as directed Primidone 10/26/19 Hx Tablets 250mg 90tab 1 tab by Faye Patel 15 - s mouth 12/03/19 every 17 night at bedtime Primidone 07/11/19 Hx Tablets 250mg 30tab 1 tab by Mere Cobb 14 - s mouth Stackman, 12/11/19 every M.D. 14 night Primidone 10/14/19 Hx Tablets 50mg 450ta 5 tabs Susannah 13 - bs by mouth Ernesto, HIGHWAY ENGINEERING TEACHER Unknown every night as directed Zocor 01/23/20 [...] s 12/11/19 14 Glucosamine & Hx Packet [id number] Unknown Chrondroitin 00 - -800mg-mg With Vitamin [...] Indications Ordering Provider Inj, Administered Injection Pancho Meade Regadenoson, 013 John, 0.1 MG Mary, FACC, FASNC Technetium TC Administered Injection Pancho Meade 99M Sushila Plata M.D., FACSkip, Per Unit Dose FASAMY Up To 40 Millicuries Immunizations Description No Information Available Vital Signs Date Vital Result Comment 05/19/2018 9:48am Heart Rate 72 /min Respiratory [...] Test Result H/L Range Note Wound 04/21/2018 [facility] Wound/Misc SEE RESULT 1, 2 Culture/Sensi [address] [place] [address] Stain [phone] Wound 04/17/2018 [facility] Wound/Misc SEE RESULT 3 Culture/Sensi [address] [place] [address] Stain [phone] Laboratory test 04/15/2016 [facility] Point of Care 152 mg/dL High 74-106 [address] Glucose [place], [place] [address] [phone] Laboratory test 04/15/2016 [facility] Point of Care 196 mg/dL High 74-106 [address] [place] [address] [phone] Basic Metabolic 04/06/2016 [facility] Sodium 136 mmol/L N 133- 145 [address] [place] [address] [phone] Potassium 4.0 mmol/L N 3.5-5.0 Chloride 99 [...] >60 Egfr 88.5 N >60 9 1 [id number] 2 SEE RESULT BELOW Name: OLINDA STOVALL : [address]: Girma Zarco MD Acct: [id number] Unit: [id number] AGE: 72 Location: [facility] Re04/21/18 SEX: F Status: REG REF SPEC: [id number] JANETH: 04/21/[address] [facility] [address]: Girma Zarco MD REQ: [id number] RECD: 04/21/18 STATUS: COMP _ SOURCE: BREAST,LEF SPDESC: ORDERED: Culture Stain COMMENTS: [id number] Specimen Description LEFT BREAST ABSCESS Procedure Result [...] CONTINUED ON NEXT PAGE DEPARTMENT OF PATHOLOGY, [address] [place] [address] Dom Baldwin M.D. Director [facility] # [id number] Patient: OLINDA STOVALL [id number] (Continued) Specimen: [id number] Collected: 04/21/18 Received: 04/21/18 (Continued) Procedure Result Reported Site Wound/Misc Culture Final (continued) * These antibiotics are not available in the [facility] Formulary Contact the Microbiology Department for any additional antibiotic reporting. * - Main Lab . END OF REPORT DEPARTMENT OF PATHOLOGY, [address] [place] [address] Dom Baldwin M.D. Director [facility] # [id number] 3 SEE RESULT BELOW Name: OLINDA STOVALL : [address]: Yoel Almanzar RPA Acct: [id number] Unit: [id number] AGE: 72 Location: [facility] Re04/17/18 SEX: F Status: REG REF SPEC: [id number] JANETH: 04/17/18-[address]: Yoel Almanzar RPA REQ: [id number] RECD: 04/17/18 STATUS: RES _ SOURCE: BREAST,LEF SPDESC: ORDERED: Culture Stain QUERIES: Specimen Description LEFT BREAST ABSCESS Procedure Result Reported Site Wound/Misc Gram Stain Final 04/17/18- 1552 ML 2+ Neutrophils 3+ Gram Positive Cocci Wound/Misc Culture Preliminary 04/18/18- 1022 ML Organism 1 STREP AGALACTIAE - (GROUP B) Quantity 2+ * ML - Main Lab . END OF REPORT DEPARTMENT OF PATHOLOGY, [address] [place] [address] Dom Baldwin M.D. Director [facility] # [id number] 4 Barn Worker: [id number] RENY VILLAGRAN 5 Barn Worker: [id number] Ketan Song 6 SDFS 04/15 7 Because [...] dialysis) Procedures Date Code Description Status 05/02/2018 46680 Mastotomy W/Explore/Drain Abscess Deep Completed 04/25/2018 44663 Puncture Aspiration Of Abcess Bulla Cyst Completed 04/21/2018 15805 Puncture Aspiration Of Abcess Bulla Cyst Completed 04/19/2018 94835 Puncture Aspiration Of Abcess Bulla Cyst Completed 04/17/2018 48270 Puncture Aspiration Of Abcess Bulla Cyst Completed 06/09/2017 12591733 Colonoscopy Completed 07/02/2016 21899 Treadmill Interp/Report Only Completed 07/02/2016 91475 Stress Test Supervsn W/Out I/R Completed 07/02/2016 71338 EKG, Interpretation Only Completed 04/15/2016 23844 Repair Hernia Incisional/Ventral Initial, Reducible Completed 04/15/2016 42086 EKG, Interpretation Only Completed 04/15/2016 65151 Implant For Incisional/Ventral Hernia Repair Completed 04/06/2016 20455 EKG, Interpretation Only Completed 07/11/2012 91557 Stress Test Completed 07/11/2012 58798 Myocardial Perfusion Imaging Tomographic (Spect) Completed Multiple Studies 07/07/2012 67339 ECHO Stress Test Incl Perf Contiuous ekg Monitoring Completed W/Phys Superv 07/07/2012 86883 Cardiac Event Monitor Completed 06/28/2012 39617 Holter Monitoring 24 HR New Completed 06/23/2012 15722 ECHO Transthoracic, Real-Time 2D With Doppler And Color Completed Flow 06/13/2012 47886 EKG Tracing & Interpretation Completed 01/29/2003 24099 ECHO/Stress Completed 01/29/2003 25112 Transesophageal Echocardiogram Completed 01/29/2003 05776 Treadmill Interp/Report Only Completed 01/29/2003 72887 Stress Test Supervsn W/Out I/R Completed 01/23/2003 21329 EKG Tracing & Interpretation Completed 01/15/2003 93331 Treadmill Interp/Report Only Completed 01/15/2003 85466 Stress Test Supervsn W/Out I/R Completed 01/08/2003 22429 Color Doppler Completed 01/08/2003 15472 Pulse Doppler & Continuous Wave Completed 01/08/2003 97789 Echocardiogram Completed Encounters Type Date Location Provider Dx Diagnosis Office Visit 04/17/2018 [facility] Yoel Fish N61.1 Abscess of the 11:30a [facility] breast and nipple Office Visit 03/09/2018 [place] Max Tee G25.0 Essential tremor 9:15a [facility] R53.82 Chronic fatigue, unspecified Office Visit 09/06/2017 [facility] Nasreen Ritchie5.0 Essential tremor 8:30a [facility] Office Visit 12/02/2016 [facility] Mere Blakely, G25.0 Essential tremor 3:15p [facility] M.DAdy Office Visit 07/01/2016 [facility] Chris Fani R07.2 Precordial pain 11:12a Assocalvin II, M.D. Hospitalists E11.9 Type 2 diabetes mellitus without complications I10 Essential (primary) hypertension Z85.3 Personal history of malignant neoplasm of breast Office Visit 04/15/2016 9:48a [facility] Teetee Shields, R55 Syncope and Assocalvin M.D. collapse Hospitalists Z98.890 Other specified postprocedural states Z87.19 Personal history of other diseases of the digestive system Office Visit 03/03/2016 9:15a Surgical Girma Arango K42.9 [facility]mbilical [facility]nia [facility]co M.D. without obstruction or gangrene Office Visit 01/23/2015 9:00a [facility] Max Cobb G25.0 Essential tremor [facility] Blakely M.D. G25.81 Restless legs syndrome Office Visit 12/11/2013 8:45a [facility] Max Cobb 333.1 Tremor Essential [facility] Blakely M.D. & Other Forms 333.94 Restless Leg Syndrome Office Visit 07/10/2013 8:30a [facility] Max Cobb 333.1 Tremor [facility] Blakely M.D. Essential & Other Forms Office Visit 02/27/2013 8:45a [facility] Max Cobb 333.1 Tremor [facility] Blakely M.D. Essential & Other Forms Office Visit 10/13/2012 9:15a [facility] Max Cobb 333.1 Tremor [facility] Blakely M.D. Essential & Other Forms Office Visit 08/08/2012 9:00a [facility] Max Cobb 333.1 Tremor [facility] Blakely M.D. Essential & Other Forms Office Visit 06/13/2012 9:30a [facility] Pancho Meade 786.50 [facility] M.D., Unspec FACC, FASNC 785.1 Palpitations Office Visit 01/23/2003 10:00a [facility] Ben Tillman 786.59 Pain Chest Gutierrez Goode. Other 782.3 Edema Plan of Treatment Future Appointment(s):05/26/2018 9:00 am - Nurse [facility]05/22/2018 9:00 am - Nurse Visit [facility]06/20/2018 8:15 am - Yoel Tee M.D. at [facility]05/19/2018 - Kelly Velazquez, NPN61.1 Abscess of the breast and nippleFollow up:M-W-F with nurse next weekZ48.01 Encounter for change or removal of surgical wound dressing
--- OUTSIDE RECORDS SUMMARY | 2018-06-16 13:19 | XMS REPORT | Continuity of Care Document ---
:1945 External Reference #:[id number] Author Name MatildeAlma jones Care Team Providers Name Role Phone Nohemi Gibson FNP Care Team Information Pharmacy Order Entry Technician Unavailable Mariusz Kulkarni MD Primary Care Physician Unavailable Payers Date Identification Numbers Payment Provider Subscriber Effective: Policy Number: [id number] Medicare Blue Ppo Olinda Stovall 2013 Group Number: [id number] [address] [address] PayID: [id number] [place] [address] Advance Directives Description No Information Available Problems [...] Lives With Spouse Occupation Works at the [employer] ETOH Use Denies alcohol use Tobacco Use [...] po Arthur, HCL 00 as Nohemi, needed 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 19 - tablet Eckenrode, Unknown today MOUNTAIN SERVICES MANAGER and may repeat in 3 days as needed Cephalexin 04/17/19 Hx Capsules 500mg 30cap 2 by N61.1 Lyla Pantoja 19 - s mouth MD Rene Unknown two times a day Percocet 04/06/20 Hx Tablets 5-325mg 20tab 1 tabs Kelly B. 16 - s by mouth Eckenrode, Unknown every 4 MOUNTAIN SERVICES MANAGER to 6 hours as needed pain [...] Susannah 13 - bs by mouth Ernesto, MOUNTAIN SERVICES MANAGER Unknown every night as directed Zocor [...] s 12/11/19 14 Glucosamine & Hx Packet [id number] Unknown Chrondroitin 00 - -800mg-mg With Vitamin [...] Pancho Meade 99M 013 Sushila Lopez M.D., FACSkip, Per Unit Dose FASNC Up To 40 [...] H/L Range Note Wound 04/21/2018 [facility] Wound/Misc SEE RESULT 1, 2 Culture/Sensi [address] [address] Stain [phone] Wound 04/17/2018 [facility] Wound/Misc SEE RESULT 3 Culture/Sensi [address] [address] Stain [phone] Laboratory test 04/15/2016 [facility] Point of Care 152 mg/dL High 74-106 [address] Glucose [place], [place] [id number] [phone] Laboratory test 04/15/2016 [facility] Point of Care 196 mg/dL High 74-106 [address] Glucose [place], [place] [address] [phone] Basic Metabolic 04/06/2016 [facility] Sodium 136 mmol/L N 133- 145 [address] [place] [address] [phone] Potassium 4.0 mmol/L N 3.5-5.0 Chloride 99 [...] >60 Egfr 88.5 N >60 9 1 [id number] 2 SEE RESULT BELOW Name: OLINDA STOVALL : [address]: Girma Zarco MD Acct: [id number] Unit: [id number] AGE: 72 Location: [facility] Re04/21/18 SEX: F Status: REG REF SPEC: [id number] JANETH: 04/21/[address]: Girma Zarco MD REQ: [id number] RECD: 04/21/18 STATUS: COMP _ SOURCE: BREAST,LEF SPDESC: ORDERED: Culture Stain COMMENTS: [id number] Specimen Description LEFT BREAST ABSCESS Procedure Result [...] CONTINUED ON NEXT PAGE DEPARTMENT OF PATHOLOGY, [address] [place] [address] Dom Baldwin M.D. Director [facility] # [id number] Patient: OLINDA STOVALL [id number] (Continued) Specimen: [id number] Collected: 04/21/18 Received: 04/21/18 (Continued) Procedure Result Reported Site Wound/Misc Culture Final (continued) * These antibiotics are not available in the [facility] Formulary Contact the Microbiology Department for any additional antibiotic reporting. * ML - [facility] . END OF REPORT DEPARTMENT OF PATHOLOGY, [address] [place] [address] Dom Baldwin M.D. Director [facility] # [id number] 3 SEE RESULT BELOW Name: OLINDA STOVALL : [address]: Yoel Almanzar RPA Acct: [id number] Unit: [id number] AGE: 72 Location: [facility] Re04/17/18 SEX: F Status: REG REF SPEC: [id number] JANETH: 04/17/18-[address]: Yoel Almanzar RPA REQ: [id number] RECD: 04/17/18 STATUS: RES _ SOURCE: BREAST,LEF SPDESC: ORDERED: Culture Stain QUERIES: Specimen Description LEFT BREAST ABSCESS Procedure Result Reported Site Wound/Misc Gram Stain Final 04/17/18- 1552 ML 2+ Neutrophils 3+ Gram Positive Cocci Wound/Misc Culture Preliminary 04/18/18- 1022 ML Organism 1 STREP AGALACTIAE - (GROUP B) Quantity 2+ * ML - Main Lab . END OF REPORT DEPARTMENT OF PATHOLOGY, [address] [place] [address] Dom Baldwin M.D. Director [facility] # [id number] 4 Bread Panner: [id number] RENY VILLAGRAN 5 Bread Panner: [id number] Ketan Song 6 [facility] 04/15 7 Because ethnic data is not [...] dialysis) Procedures Date Code Description Status 05/02/2018 37814 Mastotomy W/Explore/Drain Abscess Deep Completed 04/25/2018 23286 Puncture Aspiration Of Abcess Bulla Cyst Completed 04/21/2018 89671 Puncture Aspiration Of Abcess Bulla Cyst Completed 04/19/2018 70350 Puncture Aspiration Of Abcess Bulla Cyst Completed 04/17/2018 26977 Puncture Aspiration Of Abcess Bulla Cyst Completed 06/09/2017 [id number] Colonoscopy Completed 07/02/2016 10125 Treadmill Interp/Report Only Completed 07/02/2016 64515 Stress Test Supervsn W/Out I/R Completed 07/02/2016 43856 EKG, Interpretation Only Completed 04/15/2016 94791 Repair Hernia Incisional/Ventral Initial, Reducible Completed 04/15/2016 39418 EKG, Interpretation Only Completed 04/15/2016 48415 Implant For Incisional/Ventral Hernia Repair Completed 04/06/2016 85619 EKG, Interpretation Only Completed 07/11/2012 65806 Stress Test Completed 07/11/2012 08072 Myocardial Perfusion Imaging Tomographic (Spect) Completed Multiple Studies 07/07/2012 17976 ECHO Stress Test Incl Perf Contiuous ekg Monitoring Completed W/Phys Superv 07/07/2012 19602 Cardiac Event Monitor Completed 06/28/2012 55276 Holter Monitoring 24 HR New Completed 06/23/2012 49248 ECHO Transthoracic, Real-Time 2D With Doppler And Color Completed Flow 06/13/2012 30827 EKG Tracing & Interpretation Completed 01/29/2003 95671 ECHO/Stress Completed 01/29/2003 93034 Transesophageal Echocardiogram Completed 01/29/2003 57610 Treadmill Interp/Report Only Completed 01/29/2003 45216 Stress Test Supervsn W/Out I/R Completed 01/23/2003 12043 EKG Tracing & Interpretation Completed 01/15/2003 16764 Treadmill Interp/Report Only Completed 01/15/2003 73726 Stress Test Supervsn W/Out I/R Completed 01/08/2003 50946 Color Doppler Completed 01/08/2003 44468 Pulse Doppler & Continuous Wave Completed 01/08/2003 89132 Echocardiogram Completed Encounters Type Date Location Provider Dx Diagnosis Office Visit 04/17/2018 [facility] Yoel Fish N61.1 Abscess of the 11:30a [facility] breast and nipple Office Visit 03/09/2018 [place] Max Tee G25.0 Essential tremor 9:15a [facility] Hernandez R53.82 Chronic fatigue, unspecified Office Visit 09/06/2017 [place] Nasreen Ritchie5.0 Essential tremor 8:30a [facility] M.DAdy Office Visit 12/02/2016 [place] [facility] Mere Blakely, G25.0 Essential tremor 3:15p Services Of Wood Casket Maker M.D. Office Visit 07/01/2016 [facility] Chris Mohr R07.2 Precordial pain 11:12a Assoc,alvin ABDULLAHI M.D. Hospitalists E11.9 Type 2 diabetes mellitus without complications I10 Essential (primary) hypertension Z85.3 Personal history of malignant neoplasm of breast Office Visit 04/15/2016 9:48a [facility] Teetee Shields, R55 Syncope and Assoc,alvin Hernandez collapse Hospitalists Z98.890 Other specified postprocedural states Z87.19 Personal history of other diseases of the digestive system Office Visit 03/03/2016 9:15a Surgical Girma Arango K42.9 Umbilical hernia [facility] Zarco M.D. without obstruction or gangrene Office Visit 01/23/2015 9:00a [place] Max Cobb G25.0 Essential tremor [facility] Blakely M.D. G25.81 Restless legs syndrome Office Visit 12/11/2013 8:45a [place] Max Cobb 333.1 Tremor Essential [facility] Blakely M.D. & Other Forms 333.94 Restless Leg Syndrome Office Visit 07/10/2013 8:30a [place] Max Cobb 333.1 Tremor Services [facility] Kell Blakely M.D. Essential & Other Forms Office Visit 02/27/2013 8:45a [place] Max Cobb 333.1 Tremor [facility] Blakely M.D. Essential & Other Forms Office Visit 10/13/2012 9:15a [place] Max Cobb 333.1 Tremor [facility] Kell Blakely M.D. Essential & Other Forms Office Visit 08/08/2012 9:00a [place] Max Cobb 333.1 Tremor Services Of Kell Blakely M.D. Essential & Other Forms Office Visit 06/13/2012 9:30a [facility] Pancho Meade 786.50 Pain [facility] Lopez M.D., Unspec FACC, FASNC 785.1 Palpitations Office Visit 01/23/2003 10:00a [place] [facility] Ben Tillman 786.59 Pain Chest Mauser, M.D. Other 782.3 Edema Plan of Treatment Future Appointment(s):05/26/2018 9:00 am - Nurse Visit [facility]05/22/2018 9:00 am - Nurse Visit [facility]06/20/2018 8:15 am - Yoel Tee M.D. at [place] [facility]05/19/2018 - Kelly Velazquez, NPN61.1 Abscess of the breast and nippleFollow up:M-W- with nurse next weekZ48.01 Encounter for change or removal of surgical wound dressing
--- OUTSIDE RECORDS SUMMARY | 2018-06-16 13:19 | XMS REPORT | Continuity of Care Document ---
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 Mariusz Kulkarni MD Primary Care Physician Unavailable Payers Date Identification Numbers Payment Provider Subscriber Effective: Policy Number: [id number] Medicare Blue Ppo Olinda Stovall 2013 Group Number: [id number] [address] [address] PayID: [id number] [place] [address] Advance Directives Description No Information Available Problems [...] Lives With Spouse Occupation Works at the [employer] ETOH Use Denies alcohol use Tobacco Use Start: Unknown Patient has never smoked Smoking Status Reviewed: 05/19/18 Patient has never smoked Exercise Type/Frequency Exercises sporadically Allergies, Adverse Reactions, Alerts Date Description Reaction Status Severity Comments 01/23/2003 PCN Active rash,swelling Medications Medication Date Status Form Strength Qnty SIG Indications Ordering Provider Doxycycline 05/24/19 Active Capsules 100mg 14cap 1 po bid N61.1 Girma Aranog Hyclgary 19 s Mary Zarco Primidone 12/03/19 Active [...] po Arthur, HCL 00 as Nohemi, 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 16 - s by mouth Eckenrode, Unknown every 4 COTTON BALL BAGGER to 6 hours as needed pain Primidone 01/24/20 Hx Tablets 50mg 360ta 1 - 3 G25.0 Mere Cobb 15 - bs tabs by Grover Blakely M.DAdy every night as directed Primidone 10/26/19 Hx Tablets 250mg 90tab 1 tab by Faye Patel 15 - s mouth 12/03/19 every 17 night at bedtime Primidone 07/11/19 Hx Tablets 250mg 30tab 1 tab by Mere Cobb 14 - s mouth Zora, 12/11/19 every M.D. 14 night Primidone 10/14/19 Hx Tablets 50mg 450ta 5 tabs Susannah 13 - bs by mouth Ernesto, COTTON BALL BAGGER Unknown every night as directed Zocor 01/23/20 Hx Tablets 20mg 90tab one qhs Ben iTllman 03 - s Mary Goode 02/28/20 13 [...] s 12/11/19 14 Glucosamine & Hx Packet [id number] Unknown Chrondroitin 00 - -800mg-mg With Vitamin [...] Indications Ordering Provider Inj, Administered Injection Pancho Drakeon, 013 Lopez, 0.1 MG Mary, FACC, [facility] [employer] TC Administered Injection Pancho Meade 99M 013 Sushila Lopez M.D., [facility], Per Unit Dose FASNC Up To 40 Millicuries Immunizations Description No Information Available Vital Signs Date Vital Result Comment 05/24/2018 10:42am Respiratory Rate 18 /min Body [...] Test Result H/L Range Note Wound 04/21/2018 [facility] Wound/Misc SEE RESULT 1, 2 Culture/Sensi [address] [place] [address] Stain [phone] Wound 04/17/2018 [facility] Wound/Misc SEE RESULT 3 Culture/Sensi [address] [place] [address] Stain [phone] Laboratory test 04/15/2016 [facility] Point of Care 152 mg/dL High 74-106 [address] [place] [address] [phone] Laboratory test 04/15/2016 [facility] Point of Care 196 mg/dL High 74-106 [address] [place] [address] [phone] Basic Metabolic 04/06/2016 [facility] Sodium 136 mmol/L N 133- 145 [address] [place] [address] [phone] Potassium 4.0 mmol/L N 3.5-5.0 Chloride 99 [...] >60 Egfr 88.5 N >60 9 1 [id number] 2 SEE RESULT BELOW Name: JOSEPROSPEROLINDA Lua Nick : [address]: Girma Zarco MD Acct: [id number] Unit: [id number] AGE: 72 Location: [facility] Re04/21/18 SEX: F Status: REG REF SPEC: [id number] JANETH: 04/21/[address] [facility] [address]: Girma Zarco MD REQ: [id number] RECD: 04/21/18 STATUS: COMP _ SOURCE: BREAST,LEF SPDESC: ORDERED: Culture Stain COMMENTS: [id number] Specimen Description LEFT BREAST ABSCESS Procedure Result [...] CONTINUED ON NEXT PAGE DEPARTMENT OF PATHOLOGY, [address] [place] [address] Dom Baldwin M.D. Director [facility] # [id number] Patient: OLINDA STOVALL [id number] (Continued) Specimen: [id number] Collected: 04/21/18 Received: 04/21/18 (Continued) Procedure Result Reported Site Wound/Misc Culture Final (continued) * These antibiotics are not available in the [facility] Formulary Contact the Microbiology Department for any additional antibiotic reporting. * - [facility] . END OF REPORT DEPARTMENT OF PATHOLOGY, [address] [place] [address] Dom Baldwin M.D. Director [facility] # [id number] 3 SEE RESULT BELOW Name: OLINDA STOVALL : [address]: Yoel Almanzar RPA Acct: [id number] Unit: [id number] AGE: 72 Location: [facility] Re04/17/18 SEX: F Status: REG REF SPEC: [id number] JANETH: 04/17/18-[address]: Yoel Almanzar RPA REQ: [id number] RECD: 04/17/18 STATUS: RES _ SOURCE: BREAST,LEF SPDESC: ORDERED: Culture Stain QUERIES: Specimen Description LEFT BREAST ABSCESS Procedure Result Reported Site Wound/Misc Gram Stain Final 04/17/18- 1552 ML 2+ Neutrophils 3+ Gram Positive Cocci Wound/Misc Culture Preliminary 04/18/18- 1022 ML Organism 1 STREP AGALACTIAE - (GROUP B) Quantity 2+ * ML - Main Lab . END OF REPORT DEPARTMENT OF PATHOLOGY, [address] [place] [address] Dom Baldwin M.D. Director [facility] # [id number] 4 Canoe Inspector Final: [id number] RENY VILLAGRAN 5 Canoe Inspector Final: [id number] Ketan Song 6 SDFS 04/15 7 Because [...] dialysis) Procedures Date Code Description Status 05/02/2018 03914 Mastotomy W/Explore/Drain Abscess Deep Completed 04/25/2018 07616 Puncture Aspiration Of Abcess Bulla Cyst Completed 04/21/2018 39994 Puncture Aspiration Of Abcess Bulla Cyst Completed 04/19/2018 33977 Puncture Aspiration Of Abcess Bulla Cyst Completed 04/17/2018 26640 Puncture Aspiration Of Abcess Bulla Cyst Completed 06/09/2017 66557518 Colonoscopy Completed 07/02/2016 15908 Treadmill Interp/Report Only Completed 07/02/2016 09246 Stress Test Supervsn W/Out I/R Completed 07/02/2016 32921 EKG, Interpretation Only Completed 04/15/2016 11426 Repair Hernia Incisional/Ventral Initial, Reducible Completed 04/15/2016 77281 EKG, Interpretation Only Completed 04/15/2016 74461 Implant For Incisional/Ventral Hernia Repair Completed 04/06/2016 58575 EKG, Interpretation Only Completed 07/11/2012 70005 Stress Test Completed 07/11/2012 58363 Myocardial Perfusion Imaging Tomographic (Spect) Completed Multiple Studies 07/07/2012 05087 ECHO Stress Test Incl Perf Contiuous ekg Monitoring Completed W/Phys Superv 07/07/2012 43072 Cardiac Event Monitor Completed 06/28/2012 40798 Holter Monitoring 24 HR New Completed 06/23/2012 04399 ECHO Transthoracic, Real-Time 2D With Doppler And Color Completed Flow 06/13/2012 94278 EKG Tracing & Interpretation Completed 01/29/2003 71012 ECHO/Stress Completed 01/29/2003 29923 Transesophageal Echocardiogram Completed 01/29/2003 76428 Treadmill Interp/Report Only Completed 01/29/2003 19351 Stress Test Supervsn W/Out I/R Completed 01/23/2003 55960 EKG Tracing & Interpretation Completed 01/15/2003 10354 Treadmill Interp/Report Only Completed 01/15/2003 44607 Stress Test Supervsn W/Out I/R Completed 01/08/2003 81754 Color Doppler Completed 01/08/2003 17209 Pulse Doppler & Continuous Wave Completed 01/08/2003 69690 Echocardiogram Completed Encounters Type Date Location Provider Dx Diagnosis Office Visit 04/17/2018 [facility] Yoel Fish N61.1 Abscess of the 11:30a [facility] breast and nipple Office Visit 03/09/2018 [facility] Yoel Tee, G25.0 Essential tremor 9:15a [facility] Hernandez R53.82 Chronic fatigue, unspecified Office Visit 09/06/2017 [facility] Yoel Tee G25.0 Essential tremor 8:30a [facility] M.DAdy Office Visit 12/02/2016 [place] Max Blakely G25.0 Essential tremor 3:15p [facility] M.DAdy Office Visit 07/01/2016 [facility] Chris Mohr R07.2 Precordial pain 11:12a Assocalvin II, Mary Hospitalists E11.9 Type 2 diabetes mellitus without complications I10 Essential (primary) hypertension Z85.3 Personal history of malignant neoplasm of breast Office Visit 04/15/2016 9:48a [facility] Teetee Shields, R55 Syncope and Assalvin harkins M.D. collapse Hospitalists Z98.890 Other specified postprocedural states Z87.19 Personal history of other diseases of the digestive system Office Visit 03/03/2016 9:15a [facility] Girma Arango K42.9 Umbilical hernia [facility] Zarco M.D. without obstruction or gangrene Office Visit 01/23/2015 9:00a [place] Max Cobb G25.0 Essential tremor [facility] Blakely M.D. G25.81 Restless legs syndrome Office Visit 12/11/2013 8:45a [place] Max Cobb 333.1 Tremor Essential [facility] Blakely M.D. & Other Forms 333.94 Restless Leg Syndrome Office Visit 07/10/2013 8:30a [place] Max Cobb 333.1 Tremor Services [facility] Kell Blakely M.D. Essential & Other Forms Office Visit 02/27/2013 8:45a [facility] Max Cobb 333.1 Tremor Services [facility] Kell Blakely M.D. Essential & Other Forms Office Visit 10/13/2012 9:15a [facility] Max Cobb 333.1 Tremor Services [facility] Kell Blakely M.D. Essential & Other Forms Office Visit 08/08/2012 9:00a [place] Max Cobb 333.1 Tremor Services Of Printing Press Operator Stackman, M.D. Essential & Other Forms Office Visit 06/13/2012 9:30a [facility] Pancho Meade 786.50 [facility] Mary Lopez, Unspec [facility] 785.1 Palpitations Office Visit 01/23/2003 10:00a [facility] Ben Tillman 786.59 Pain Chest Mary Goode Other 782.3 Edema Plan of Treatment Future Appointment(s):05/26/2018 9:00 am - Nurse Visit [facility]06/20/2018 8:15 am - Yoel Tee M.D. at [facility]05/24/2018 - Girma Zarco M.D.N61.1 Abscess of the breast and nippleNew Medication:Doxycycline Hyclate 100 mg - 1 po bidFollow up:1-2 days
[2018-06-16] MEDS ORDERED: Ondansetron INJ* 2 MG/ML VIAL IV PRN (13:53)
[2018-06-16] MEDS ORDERED: Dextrose 50% Syringe 50 ML* 25 GM/50 ML SYRINGE IV PUSH PRN (14:01)
[2018-06-16] MEDS: oxyCODONE TAB* 5 MG TAB PO PRN (15:15)
[2018-06-16] MEDS: Heparin VIAL(*) 5000 UNITS/ML VIAL (FIVE THOUSAND) SUBCUT SCH ×2 (15:17→21:44)
[2018-06-16] MEDS: Acetaminophen TAB* 325 MG PO PRN (15:17)
[2018-06-16 15:42] LABS: ABS Basophils 0 10^3/ul (0-0.2); ABS Eosinophils 0.2 10^3/ul (0-0.6); ABS Lymphocytes 2.2 10^3/ul (1.0-4.8); ABS Monocytes 0.6 10^3/ul (0-0.8); ABS Neutrophils 3.6 10^3/ul (1.5-7.7); ABS Nucleated RBC 0 10^3/ul; Eosinophil % 2.5 %; Hematocrit 37 % (35-47); Hemoglobin 12.4 g/dl (12.0-16.0); Lymphocyte % 33.5 %; Mean Corpuscular HGB Conc 33 g/dl (31-36); Mean Corpuscular Hemoglobin 30 pg (27-31); Mean Corpuscular Volume 91 fL (80-97); Nucleated Red Blood Cells % 0; Platelet Count 236 10^3/ul (150-450); Red Blood Count 4.08 10^6/ul (4.00-5.40); Red Cell Distribution Width 14 % (10.5-15); White Blood Count 6.5 10^3/ul (3.5-10.8)
[2018-06-16 15:50] LABS: Albumin 3.6 g/dL (3.2-5.2); BUN/Creatinine Ratio 17.7 (8-20); Calcium 8.9 mg/dL (8.6-10.3); EGFR African American 115.1 (>60); EGFR Non-African American 95.2 (>60); Globulin 3.5 g/dL (2-4); Potassium 3.6 mmol/L (3.5-5.0); Total Bilirubin 0.3 mg/dL (0.2-1.0); Total Protein 7.1 g/dL (6.4-8.9)
[2018-06-16] MEDS: Insulin LISPRO* 1 UNITS UNIT SUBCUT SCH ×2 (17:31→21:30)
[2018-06-16 17:49] LABS: Influenza A Molecular NEGATIVE (Negative); Influenza B Molecular NEGATIVE (Negative)
[2018-06-16] MEDS: cefTRIAXone(*) 1 GM in NS 0.9% 50 ML* 50 ML IVPB SCH (18:18)
[2018-06-16] MEDS: metroNIDAZOLE IV 500 MG/100ML* 500 MG/100 ML BAG IVPB SCH (18:20)
--- NOTE | 2018-06-16 20:10 | HP ---
CC: Dr. Mariusz Kulkarni; Dr. Chato Hurley * ADMISSION HISTORY AND PHYSICAL: DATE OF ADMISSION: 06/16/18 PRIMARY CARE PROVIDER: Dr. Mariusz Kulkarni. MY ATTENDING WHILE IN THE HOSPITAL: Dr. Mondragon.* (DICTATED BY DAYANA BRITO) CHIEF COMPLAINT: Breast abscess. HISTORY OF PRESENT ILLNESS: Ms. Stovall is a 72-year-old female with past medical history significant for breast cancer; status post lumpectomy and radiation with [id number] wound, diabetes mellitus type 2, iron deficiency anemia who was a direct admission today from the infectious disease office for concern for abscess and residual infection of her left breast. The patient has been having issues with her left breast incision ever since her treatment for her breast cancer which was undergone in 2008 with final closure of her left breast wound in 2010. The patient has not had issues with it since then until the middle of April, when she began to have increased swelling, pain, and redness around her left breast. The patient was seen by Dr. Zarco of general surgery, who did her initial surgery, who recommended I and D and was started on antibiotics; she is unsure which type and then underwent an I and D on 05/01/18. The patient has been on and off antibiotics since then. The patient states that she has completed several courses of antibiotics and every time they are discontinued, the redness and swelling get back. The patient has with these episodes had systemic symptoms with subjective fevers, chills, nausea, vomiting, and increased pain. The patient's wound recently began to again get more erythematous and began to produce a foul odor. The patient was seen again by Dr. Zarco and had an ultrasound, which showed persistent abscess, which was incised and drained on 06/14/18. The patient has been on doxycycline since then. The patient was referred to Dr. Chato Hurley of infectious disease and in his office, the patient was exhibiting rigors, subjective chills, and general overall malaise. For this, she was referred to the hospital for direct admission and IV antibiotics. The patient in the hospital is still having residual pain, swelling, redness, subjective fevers and chills. From her incision site, the patient has significant serosanguineous drainage from this area and exquisite tenderness to palpation around this area as well. The patient denies chest pain, shortness of breath, pain with urination, abdominal pain, diarrhea, or other symptoms. The patient has been having very difficult to control blood sugars and was recently started on insulin to control her blood glucose. The patient does not know her most recent hemoglobin A1c. The patient denies any rashes, lesion on the hands; feet; shins or changes in her vision or eyes. PAST MEDICAL HISTORY: 1. Diabetes mellitus type 2, now insulin-dependent. 2. Breast cancer. 3. Hyperlipidemia. 4. Hypothyroidism. 5. Iron deficiency anemia. 6. Essential tremor. 7. GERD. PAST SURGICAL HISTORY: Hysterectomy, oophorectomy, left breast lumpectomy with lymph node biopsy in 2008. Multiple I and Ds of left breast in 2009, 2010 as well as in April and June 2018, umbilical hernia repair x2, cataract excision in late 2017. MEDICATIONS: 1. Fluoxetine 40 mg p.o. daily. 2. Levothyroxine 50 mcg p.o. daily. 3. Lisinopril 5 mg p.o. daily. 4. Alprazolam 0.5 mg twice daily as needed for anxiety. 5. Pravastatin 40 mg p.o. daily. 6. Primidone 250 mg p.o. daily. 7. Zofran oral dissolving tablet 5 mg p.o. q.4 hours as needed for nausea. 8. Cyclobenzaprine 5 mg p.o. nightly as needed for insomnia. 9. Furosemide 20 mg p.o. daily 1 to 2 tablets for fluid overload. 10. Trulicity 0.75 mg weekly for diabetes. ALLERGIES: PENICILLIN to which she has hives and swelling, tomato, JANUVIA, PREGABALIN, and ORANGE FLAVORED CT CONTRAST. FAMILY HISTORY: The patient's mother is alive, had a bowel replacement, is 90 years old and otherwise healthy. The patient's father of kidney failure related to diabetes. The patient has 3 brothers, 2 of whom have polio and 1 of whom has MS. SOCIAL HISTORY: The patient never smoked, never drank, and never uses drugs. 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 The patient is and has 4 children. The patient's surrogate decision maker will be her , Allan Stovall. REVIEW OF SYSTEMS: The patient has lost 10 pounds in the last 7 weeks. A 14- point review of systems was, otherwise, reviewed and is negative, except as above in the HPI. PHYSICAL EXAMINATION GENERAL: The patient is a 72-year-old female who appears stated age and is sitting comfortably in bed, in no acute distress. VITAL SIGNS: Not obtained. HEENT: Head normocephalic, atraumatic. Sclerae anicteric. No conjunctival injection. Nasal mucosa moist. Oral mucosa moist. No pharyngeal erythema, discharge, or exudate. NECK: Supple, nontender. No lymphadenopathy. No carotid bruits auscultated. No JVD. RESPIRATORY: Clear to auscultation bilaterally. No wheezes, rales, or rhonchi. Good air exchange bilaterally. CARDIAC: Regular rate and rhythm. No clicks, murmurs, gallops, or rubs. Pulses are 2+ in the bilateral dorsalis pedis, posterior tibialis and radial areas. ABDOMEN: Soft, nontender, nondistended. Bowel sounds present in all 4 quadrants. No hepatosplenomegaly. No abdominal bruits auscultated. No hepatojugular reflux. GENITOURINARY: No suprapubic or CVA tenderness. SKIN: Incision of the left breast packed with wet-to-dry dressing with a foul odor and surrounding erythema with serosanguineous drainage and severe tenderness to palpation. NEUROLOGIC: Cranial nerves II through XII intact. No focal deficits. Alert and oriented x3. PSYCHIATRIC: Pleasant and cooperative. DIAGNOSTIC STUDIES/LAB DATA: Laboratory Data: Pending. Studies: Pertinent studies, most recent outpatient ultrasound from 06/14/18 read as constellation of findings are consistent with cellulitis and abscess. Ultrasound and mammogram followup approximately 3 months after time of acute surgical management suggesting the absence of intervening clinical concern. Surgical specimen shows inactive breast tissue with necrosis, no signs of neoplasia. ASSESSMENT AND PLAN: Impression: Ms. Stovall is a 72-year-old female with past medical history significant for breast cancer; status post lumpectomy, radiation, and [id number] wound as well as diabetes mellitus and hyperlipidemia who is a direct admission from the infectious disease office of Dr. Chato Hurley for concern for a systemic infection related to ongoing breast abscess. The patient will be started on IV antibiotics and monitored closely while in the hospital. 1. Left breast abscess. The patient had an I and D of her left breast abscess on 06/14/18. The patient was then referred to Dr. Chato Hurley of infectious disease. The patient has been on several course of antibiotics since April, none of which have completely healed her left breast wound. The patient's wound is likely difficult to heal due to diabetes and ongoing infection. We will obtain a repeat ultrasound to assess for persistent abscess. We will start the patient on ceftriaxone and Flagyl under the direction of Dr. Hurley of infectious disease, who will see the patient in consultation. The patient has non-MRSA Staphylococcus aureus in her breast which is deduced to be resistant to cefazolin; however, based on clinical expertise, Dr. Hurley believes this is not a real finding. The patient will also be started on Flagyl due to the smell emanating from the patient's wound indicating possible anaerobic infection. The patient will have blood cultures. The patient will have a wound care consult and will likely need repeat breast packing with wet-to-dry dressing and based on results of ultrasound, may need repeat I and D. The patient's histology was negative for breast cancer. 2. Diabetes mellitus type 2. The patient has had hard to control diabetes since her infection, likely due to her infection. The patient will be placed on fingerstick a.c. and h.s. Blood glucose monitoring, recursive monitoring for addition of basal insulin. As the patient's infection subsides, it is likely that her insulin demand will be decreased and she may be able to be transitioned back to only oral medications after her breast abscess is resolved. 3. Hyperlipemia. Continue the patient's pravastatin. 4. Iron deficiency anemia. We will check the patient's CBC at this time. The patient is not on iron. It is possible the patient has been poorly absorbing iron due to her infection. This should be addressed as an outpatient. 5. DVT prophylaxis. The patient is a high risk. The patient will be started on heparin subcu. 6. FEN: The patient will have a consistent carbohydrate diet. The patient has no need for fluids at this time. TIME SPENT: Approximately 60 minutes were spent on the admission of this patient, 30 of which were spent [id number] with the patient obtaining history and physical and discussing my treatment plan. This plan was discussed with my attending, Dr. Mondragon, and he is in agreement. DAYANA BRITO [id number]/[facility] #: [id number] COURTNEY
[2018-06-16] MEDS: Atorvastatin* 20 MG TAB PO SCH (21:42)
[2018-06-16] MEDS: ALPRAZolam TAB* 0.5 MG PO PRN (21:42)
[2018-06-16] MEDS: Primidone TAB(*) 250 MG PO SCH (21:43)
[2018-06-17] MEDS: metroNIDAZOLE IV 500 MG/100ML* 500 MG/100 ML BAG IVPB SCH ×2 (02:46→14:10)
[2018-06-17] MEDS: Cyclobenzaprine TAB* 10 MG PO PRN ×2 (02:54→21:22)
[2018-06-17] MEDS: Heparin VIAL(*) 5000 UNITS/ML VIAL (FIVE THOUSAND) SUBCUT SCH (04:22)
[2018-06-17 07:22] LABS: ABS Basophils 0 10^3/ul (0-0.2); ABS Eosinophils 0.2 10^3/ul (0-0.6); ABS Lymphocytes 1.4 10^3/ul (1.0-4.8); ABS Monocytes 0.4 10^3/ul (0-0.8); ABS Neutrophils 2.4 10^3/ul (1.5-7.7); ABS Nucleated RBC 0 10^3/ul; Eosinophil % 3.5 %; Hematocrit 36 % (35-47); Hemoglobin 12.1 g/dl (12.0-16.0); Lymphocyte % 32.1 %; Mean Corpuscular HGB Conc 34 g/dl (31-36); Mean Corpuscular Hemoglobin 31 pg (27-31); Mean Corpuscular Volume 92 fL (80-97); Mean Platelet Volume 7.1 fL (7.4-10.4); Nucleated Red Blood Cells % 0.1; Platelet Count 201 10^3/ul (150-450); Red Blood Count 3.91 10^6/ul (4.00-5.40); Red Cell Distribution Width 14 % (10.5-15); White Blood Count 4.5 10^3/ul (3.5-10.8)
[2018-06-17] MEDS: Insulin LISPRO* 1 UNITS UNIT SUBCUT SCH ×4 (08:08→21:24)
[2018-06-17] MEDS ORDERED: Senna TAB PO PRN (08:13)
[2018-06-17] MEDS ORDERED: Polyethylene Glycol 3350* 17 GM PACKET PO PRN (08:13)
[2018-06-17 08:19] LABS: BUN/Creatinine Ratio 13.6 (8-20); Calcium 8.7 mg/dL (8.6-10.3); EGFR African American 107.1 (>60); EGFR Non-African American 88.5 (>60); Magnesium 1.9 mg/dL (1.9-2.7); Potassium 3.9 mmol/L (3.5-5.0)
[2018-06-17] MEDS: Lisinopril TAB* 5 MG PO SCH (08:31)
[2018-06-17] MEDS: Levothyroxine TAB* 50 MCG TAB PO SCH (08:31)
[2018-06-17] MEDS: FLUoxetine CAP* 20 MG PO SCH (08:31)
[2018-06-17] MEDS: Furosemide TAB* 20 MG PO SCH (08:31)
[2018-06-17] MEDS: oxyCODONE TAB* 5 MG TAB PO PRN ×2 (08:31→19:36)
[2018-06-17] MEDS ORDERED: Glycerin ADULT SUPP PR SCH (09:00)
[2018-06-17 10:09] LABS: Urine Appearance Clear; Urine Bilirubin Negative (Negative); Urine Blood Negative (Negative); Urine Color Straw; Urine Glucose Negative (Negative); Urine Ketones Negative (Negative); Urine Nitrite Negative (Negative); Urine Protein Negative (Negative); Urine Specific Gravity 1.005 (1.010-1.030); Urine Urobilinogen Negative (Negative)
[2018-06-17] MEDS: Acetaminophen TAB* 325 MG PO PRN ×2 (11:51→19:36)
--- NOTE | 2018-06-17 13:14 | PN ---
Subjective Interval History: Pt reports improvement in pain (to 5/10) and odor of L breast abscess. Denies fevers, chills, diaphoresis. Anxious. Objective Active Medications: Acetaminophen (Tylenol Tab*) 650 mg PO Q6H PRN PRN Reason: FEVER/PAIN Last Admin: 06/17/18 11:51 Dose: 650 mg Alprazolam (Xanax Tab*) 0.5 mg PO BID PRN PRN Reason: ANXIETY Last Admin: 06/16/18 21:42 Dose: 0.5 mg Atorvastatin Calcium (Lipitor*) 20 mg PO BEDTIME [facility] Last Admin: 06/16/18 21:42 Dose: 20 mg Cyclobenzaprine HCl (Flexeril Tab*) 5 mg PO BEDTIME PRN PRN Reason: PAIN Last Admin: 06/17/18 02:54 Dose: 5 mg Dextrose (D50w Syringe 50 Ml*) 12.5 gm IV PUSH .FOR FS < 60 - SS PRN PRN Reason: FS < 60 Enoxaparin Sodium (Lovenox(*)) 40 mg SUBCUT Q24H [facility] Fluoxetine HCl (Prozac Cap*) 40 mg PO QAM [facility] Last Admin: 06/17/18 08:31 Dose: 40 mg Furosemide (Lasix Tab*) 20 mg PO QAM [facility] Last Admin: 06/17/18 08:31 Dose: 20 mg Glycerin (Glycerin Adult Supp*) 1 supp LA ONCE [facility] Metronidazole/Sodium Chloride (Flagyl 500 Mg Ivpb*) 500 mg in 100 mls @ 100 mls /hr IVPB Q12H [facility] Last Admin: 06/17/18 02:46 Dose: 100 mls/hr Ceftriaxone Sodium 1 gm/ (Sodium Chloride) 50 mls @ 200 mls/hr IVPB Q24H [facility] Last Admin: 06/17/18 13:38 Dose: 200 mls/hr Insulin Human Lispro (Humalog*) 0 units SUBCUT [facility]; Protocol Last Admin: 06/17/18 12:31 Dose: 3 units Levothyroxine Sodium (Synthroid Tab*) 50 mcg PO QAM [facility] Last Admin: 06/17/18 08:31 Dose: 50 mcg Lisinopril (Prinivil Tab*) [facility] [place] Last Admin: 06/17/18 08:31 Dose: 5 mg Ondansetron HCl (Zofran Inj*) 4 mg IV Q6H PRN PRN Reason: NAUSEA Oxycodone HCl (Roxycodone Tab*) 5 mg PO Q4H PRN PRN Reason: PAIN Last Admin: 06/17/18 08:31 Dose: 5 mg Polyethylene Glycol/Electrolytes (Miralax*) 17 gm PO DAILY PRN PRN Reason: CONSTIPATION Last Admin: 06/17/18 11:38 Dose: 17 gm Primidone (Mysoline Tab(*)) 250 mg PO BEDTIME [facility] Last Admin: 06/16/18 21:43 Dose: 250 mg Senna (Senokot Tab*) 1 tab PO BEDTIME PRN PRN Reason: no BM during day Last Admin: 06/17/18 11:38 Dose: 1 tab Vital Signs - 8 hr 06/17/18 06/17/18 06/17/18 05:13 07:42 07:46 Temperature 98.3 F Pulse Rate 67 Respiratory 16 16 16 Rate Blood Pressure 129/61 (mmHg) O2 Sat by Pulse 99 Oximetry 06/17/18 06/17/18 08:31 11:40 Temperature 97.4 F Pulse Rate 66 Respiratory 18 19 Rate Blood Pressure 148/57 (mmHg) O2 Sat by Pulse 100 Oximetry Oxygen Devices in Use Now: None Appearance: well appearing, comfortable, nontoxic Ears/Nose/Mouth/Throat: Clear Oropharnyx Neck: No Thyroid Enlargement, Masses Respiratory: Clear to Auscultation Cardiovascular: RRR Abdominal: NL Sounds; No Tenderness; No Distention Extremities: No Edema Skin: - - L breast with 6 cm linear incision site packed with gauze, surrounding skin indurated but not erythematous or warm; malodorous; painful to touch; no drainage Neurological: Alert and Oriented x 3 Result Diagrams: 06/17/18 06:48 06/17/18 06:48 Assess/Plan/Problems-Billing 72W with h/o L-sided breast cancer s/p lumpectomy (2008) and radiation c/b chronic wound with final closure in 2010, DM2, HTN c/b possible HFpEF, anxiety, hypothyroidism, presents from ID clinic with recurrent breast infection for 2 months not responsive to outpatient antibiotics and c/b sepsis. - Patient Problems (1) Abscess of breast, left Comment: Recurrent infection/abscess s/p I&D in April and again June 14. Ultrasound 06/16 without e/o abscess but L breast wound with poor healing, foul discharge, pain, and concern for sepsis in ID clinic. Admitted from clinic for IV abx. Outpatient cultures with group B strep x 3 and MSSA x 1. Excision by surgery without malignancy. - cont IV CTX and Flagyl per ID, appreciate recs - f/u blood cx - blood glucose control - wound care (2) Diabetes type 2, uncontrolled Comment: A1c 11%. Need tighter control given nonhealing wound. - cont lispro ISS - good control in hospital so far - cont home atorvastatin (3) Hypertension with heart disease Comment: - cont lisinopril (although this could be for diabetic nephropathy?) - cont home furosemide 20mg PO daily (4) Essential tremor Comment: - cont home primidone (5) Anxiety Comment: - cont home benzo prn with standing SSRI (6) Hyperthyroidism Comment: - cont levothyroxine 50mcg daily - f/u TSH (7) DVT prophylaxis Comment: cont LMWH daily
[2018-06-17] MEDS: cefTRIAXone(*) 1 GM in NS 0.9% 50 ML* 50 ML IVPB SCH (13:38)
[2018-06-17] MEDS: ALPRAZolam TAB* 0.5 MG PO PRN (21:22)
[2018-06-17] MEDS: Primidone TAB(*) 250 MG PO SCH (21:23)
[2018-06-17] MEDS: Atorvastatin* 20 MG TAB PO SCH (21:23)
[2018-06-17] MEDS: Enoxaparin(*) 40 MG/0.4 ML SYR SUBCUT SCH (21:26)
[2018-06-18] MEDS: metroNIDAZOLE IV 500 MG/100ML* 500 MG/100 ML BAG IVPB SCH ×2 (01:46→14:10)
[2018-06-18] MEDS: Ibuprofen TAB* 600 MG PO PRN ×3 (01:46→20:56)
[2018-06-18] MEDS: Insulin LISPRO* 1 UNITS UNIT SUBCUT SCH ×4 (08:05→21:25)
[2018-06-18] MEDS: Levothyroxine TAB* 50 MCG TAB PO SCH (08:13)
[2018-06-18] MEDS: Furosemide TAB* 20 MG PO SCH (08:13)
[2018-06-18] MEDS: Lisinopril TAB* 5 MG PO SCH (08:13)
[2018-06-18] MEDS: FLUoxetine CAP* 20 MG PO SCH (08:14)
[2018-06-18] MEDS: Acetaminophen TAB* 325 MG PO PRN (08:14)
--- NOTE | 2018-06-18 08:52 | PN ---
Subjective Date of Service: 06/18/18 Interval History: HD # 2 on 06/18/18 72 yo F with PMH distant breast cancer of L breast, NIDDM (A1C 11 this hospitlization) who is here for 2 months of worsening L breast abscess Overnight events: None. VSS, remains on 2L NC satting 97%, adeqaute UOP, no BM, pt did have anxiety overnight Labs 06/17 stable This afternoon seen with at bedside reports pain much improved but still there, packing being changed by nursing. Surgery is following from afar, and will see her tuesday morning. Low appetitie but drinking plenty of fluids, otherwise quite pleasant andwell No c/o chest pain, SOB, GI, , resp issues. Objective Active Medications: Acetaminophen (Tylenol Tab*) 650 mg PO Q6H PRN PRN Reason: FEVER/PAIN Last Admin: 06/18/18 08:14 Dose: 650 mg Alprazolam (Xanax Tab*) 0.5 mg PO BID PRN PRN Reason: ANXIETY Last Admin: 06/17/18 21:22 Dose: 0.5 mg Atorvastatin Calcium (Lipitor*) 20 mg PO BEDTIME [facility] Last Admin: 06/17/18 21:23 Dose: 20 mg Cyclobenzaprine HCl (Flexeril Tab*) 5 mg PO BEDTIME PRN PRN Reason: PAIN Last Admin: 06/17/18 21:22 Dose: 5 mg Dextrose (D50w Syringe 50 Ml*) 12.5 gm IV PUSH .FOR FS < 60 - SS PRN PRN Reason: FS < 60 Enoxaparin Sodium (Lovenox(*)) 40 mg SUBCUT Q24H [facility] Last Admin: 06/17/18 21:26 Dose: 40 mg Fluoxetine HCl (Prozac Cap*) 40 mg PO QAM [facility] Last Admin: 06/18/18 08:14 Dose: 40 mg Furosemide (Lasix Tab*) 20 mg PO QAM [facility] Last Admin: 06/18/18 08:13 Dose: 20 mg Glycerin (Glycerin Adult Supp*) 1 supp MS ONCE [facility] Metronidazole/Sodium Chloride (Flagyl 500 Mg Ivpb*) 500 mg in 100 mls @ 100 mls /hr IVPB Q12H [facility] Last Admin: 06/18/18 01:46 Dose: 100 mls/hr Ceftriaxone Sodium 1 gm/ (Sodium Chloride) 50 mls @ 200 mls/hr IVPB Q24H [facility] Last Admin: 06/17/18 13:38 Dose: 200 mls/hr Ibuprofen (Motrin Tab*) 600 mg PO Q8H PRN PRN Reason: PAIN Last Admin: 06/18/18 01:46 Dose: 600 mg Insulin Human Lispro (Humalog*) 0 units SUBCUT [facility]; Protocol Last Admin: 06/18/18 08:05 Dose: Not Given Levothyroxine Sodium (Synthroid Tab*) 50 mcg PO [facility] Last Admin: 06/18/18 08:13 Dose: 50 mcg Lisinopril (Prinivil Tab*) 5 mg PO [facility] Last Admin: 06/18/18 08:13 Dose: 5 mg Ondansetron HCl (Zofran Inj*) 4 mg IV Q6H PRN PRN Reason: NAUSEA Oxycodone HCl (Roxycodone Tab*) 5 mg PO Q4H PRN PRN Reason: PAIN Last Admin: 06/17/18 19:36 Dose: 5 mg Polyethylene Glycol/Electrolytes (Miralax*) 17 gm PO DAILY PRN PRN Reason: CONSTIPATION Last Admin: 06/17/18 11:38 Dose: 17 gm Primidone (Mysoline Tab(*)) 250 mg PO BEDTIME [facility] Last Admin: 06/17/18 21:23 Dose: 250 mg Senna (Senokot Tab*) 1 tab PO BEDTIME PRN PRN Reason: no BM during day Last Admin: 06/17/18 11:38 Dose: 1 tab Vital Signs - 8 hr 06/18/18 03:28 Temperature 97.3 F Pulse Rate 73 Respiratory 22 Rate Blood Pressure 106/56 (mmHg) O2 Sat by Pulse 95 Oximetry Oxygen Devices in Use Now: None, Nasal Cannula Appearance: Pleasant woman in NAD Ears/Nose/Mouth/Throat: NL Teeth, Lips, Gums, Clear Oropharnyx Neck: NL Appearance and Movements; NL JVP Respiratory: Symmetrical Chest Expansion and Respiratory Effort, Clear to Auscultation Cardiovascular: NL Sounds; No Murmurs; No JVD, RRR Abdominal: NL Sounds; No Tenderness; No Distention, No Hepatosplenomegaly Lymphatic: No Cervical Adenopathy Extremities: No Edema Skin: No Rash or Ulcers, - - L breast with bandages and backing that is clean and dry, minimal erythema Neurological: Alert and Oriented x 3 Result Diagrams: 06/17/18 06:48 06/17/18 06:48 Microbiology and Other Data: Microbiology 06/16/18 17:12 Influenza Types A,B Antigen - Final Nasal Specimen received for Influenza A/B Molecular testing Assess/Plan/Problems-Billing 72 F with h/o L-sided breast cancer s/p lumpectomy (2008) and radiation c/b chronic wound with final closure in 2010, DM2, HTN c/b possible HFpEF, anxiety, hypothyroidism, presents from ID clinic with recurrent breast infection for 2 months not responsive to outpatient antibiotics and c/b possible sepsis. - Patient Problems (1) Abscess of breast, left Current Visit: Yes Status: Acute Code(s): N61.1 - ABSCESS OF THE BREAST AND NIPPLE SNOMED Code(s): 93582533 Comment: Recurrent infection/abscess s/p I&D in April and again June 14. Ultrasound 06/16 without e/o abscess but L breast wound with poor healing, foul discharge, pain, and concern for sepsis in ID clinic. Admitted from clinic for IV abx. Outpatient cultures with group B strep x 3 and MSSA x 1. Excision by surgery without malignancy. - cont IV CTX and Flagyl per ID, appreciate recs - f/u blood cx - blood glucose control - wound care (2) Diabetes type 2, uncontrolled Current Visit: Yes Status: Acute Code(s): E11.65 - TYPE 2 DIABETES MELLITUS WITH HYPERGLYCEMIA SNOMED Code(s): 471992695 Comment: A1c 11%. Need tighter control given nonhealing wound. - cont lispro ISS - good control in hospital so far - cont home atorvastatin (3) Hypertension with heart disease Current Visit: Yes Status: Acute Code(s): I11.9 - HYPERTENSIVE HEART DISEASE WITHOUT HEART FAILURE SNOMED Code(s): 26567440 Comment: - cont lisinopril (although this could be for diabetic nephropathy?) - cont home furosemide 20mg PO daily (4) Hypothyroid Current Visit: Yes Status: Acute Code(s): E03.9 - HYPOTHYROIDISM, UNSPECIFIED SNOMED Code(s): 35301807 Comment: Continue Levothyroxine (5) Anxiety Current Visit: Yes Status: Acute Code(s): F41.9 - ANXIETY DISORDER, UNSPECIFIED SNOMED Code(s): 83847961 Comment: - cont home benzo prn with standing SSRI (6) Essential tremor Current Visit: Yes Status: Acute Code(s): G25.0 - ESSENTIAL TREMOR SNOMED Code(s): 384608516 Comment: - cont home primidone (7) DVT prophylaxis Current Visit: Yes Status: Acute Code(s): TKM1362 - SNOMED Code(s): 877445202 Comment: cont LMWH daily Status and Disposition: Follow ID recs, update daughter, Full code, remains inpatient for now, possible d/c depending surgery recs
[2018-06-18] MEDS: cefTRIAXone(*) 1 GM in NS 0.9% 50 ML* 50 ML IVPB SCH (13:44)
[2018-06-18] MEDS: oxyCODONE TAB* 5 MG TAB PO PRN (16:57)
[2018-06-18] MEDS: Enoxaparin(*) 40 MG/0.4 ML SYR SUBCUT SCH (20:57)
[2018-06-18] MEDS: Atorvastatin* 20 MG TAB PO SCH (20:57)
[2018-06-18] MEDS: Primidone TAB(*) 250 MG PO SCH (20:57)
[2018-06-19] MEDS: Acetaminophen TAB* 325 MG PO PRN (03:15)
[2018-06-19] MEDS: metroNIDAZOLE IV 500 MG/100ML* 500 MG/100 ML BAG IVPB SCH (03:16)
--- NOTE | 2018-06-19 08:25 | PN ---
Subjective Date of Service: 06/19/18 Interval History: HD # 3 on 06/19/18 72 yo F with PMH distant breast cancer of L breast, NIDDM (A1C 11 this hospitalization) who is here for 2 months of worsening L breast abscess Overnight events: None. VSS, remains on 2L NC satting 97%, adeqaute UOP, no BM, pt did have anxiety overnight Labs 06/17 stable This morning seen, culture data now growing MRSA, will discuss with ID. She still complains of a dull chronic ache to L breast, and mild nausea. Otherwise doing Ok, awaiting surgical eval. No c/o chest pain, SOB, GI, , resp issues. Objective Active Medications: Acetaminophen (Tylenol Tab*) 650 mg PO Q6H PRN PRN Reason: FEVER/PAIN Last Admin: 06/19/18 03:15 Dose: 650 mg Alprazolam (Xanax Tab*) 0.5 mg PO BID PRN PRN Reason: ANXIETY Last Admin: 06/17/18 21:22 Dose: 0.5 mg Atorvastatin Calcium (Lipitor*) 20 mg PO BEDTIME RIZWANA Last Admin: 06/18/18 20:57 Dose: 20 mg Cyclobenzaprine HCl (Flexeril Tab*) 5 mg PO BEDTIME PRN PRN Reason: PAIN Last Admin: 06/17/18 21:22 Dose: 5 mg Dextrose (D50w Syringe 50 Ml*) 12.5 gm IV PUSH .FOR FS < 60 - SS PRN PRN Reason: FS < 60 Enoxaparin Sodium (Lovenox(*)) 40 mg SUBCUT Q24H [facility] Last Admin: 06/18/18 20:57 Dose: 40 mg Fluoxetine HCl (Prozac Cap*) 40 mg PO QAM RIZWANA Last Admin: 06/18/18 08:14 Dose: 40 mg Furosemide (Lasix Tab*) 20 mg PO QAM [facility] Last Admin: 06/18/18 08:13 Dose: 20 mg Glycerin (Glycerin Adult Supp*) 1 supp AK ONCE [facility] Metronidazole/Sodium Chloride (Flagyl 500 Mg Ivpb*) 500 mg in 100 mls @ 100 mls /hr IVPB Q12H [facility] Last Admin: 06/19/18 03:16 Dose: 100 mls/hr Ceftriaxone Sodium 1 gm/ (Sodium Chloride) 50 mls @ 200 mls/hr IVPB Q24H [facility] Last Admin: 06/18/18 13:44 Dose: 200 mls/hr Ibuprofen (Motrin Tab*) 600 mg PO Q8H PRN PRN Reason: PAIN Last Admin: 06/18/18 20:56 Dose: 600 mg Insulin Human Lispro (Humalog*) 0 units SUBCUT ACHS [facility]; Protocol Last Admin: 06/18/18 21:25 Dose: 3 units Levothyroxine Sodium (Synthroid Tab*) 50 mcg PO [facility] Last Admin: 06/18/18 08:13 Dose: 50 mcg Lisinopril (Prinivil Tab*) 5 mg PO [facility] Last Admin: 06/18/18 08:13 Dose: 5 mg Ondansetron HCl (Zofran Inj*) 4 mg IV Q6H PRN PRN Reason: NAUSEA Last Admin: 06/18/18 10:37 Dose: 4 mg Oxycodone HCl (Roxycodone Tab*) 5 mg PO Q4H PRN PRN Reason: PAIN Last Admin: 06/18/18 16:57 Dose: 5 mg Polyethylene Glycol/Electrolytes (Miralax*) 17 gm PO DAILY PRN PRN Reason: CONSTIPATION Last Admin: 06/17/18 11:38 Dose: 17 gm Primidone (Mysoline Tab(*)) 250 mg PO BEDTIME [facility] Last Admin: 06/18/18 20:57 Dose: 250 mg Senna (Senokot Tab*) 1 tab PO BEDTIME PRN PRN Reason: no BM during day Last Admin: 06/17/18 11:38 Dose: 1 tab Vital Signs - 8 hr 06/19/18 06/19/18 03:45 07:47 Temperature 97.4 F 97 F Pulse Rate 64 59 Respiratory 16 20 Rate Blood Pressure 122/58 136/69 (mmHg) O2 Sat by Pulse 98 100 Oximetry Oxygen Devices in Use Now: None, Nasal Cannula Appearance: Pleasant woman in NAD Ears/Nose/Mouth/Throat: NL Teeth, Lips, Gums Neck: NL Appearance and Movements; NL JVP Respiratory: Symmetrical Chest Expansion and Respiratory Effort, Clear to Auscultation Cardiovascular: NL Sounds; No Murmurs; No JVD, RRR Abdominal: NL Sounds; No Tenderness; No Distention, No Hepatosplenomegaly Lymphatic: No Cervical Adenopathy Extremities: No Edema Skin: - - Packing to L chest wall above nipple Result Diagrams: 06/17/18 06:48 06/17/18 06:48 Microbiology and Other Data: Microbiology 06/16/18 17:12 Influenza Types A,B Antigen - Final Nasal Specimen received for Influenza A/B Molecular testing Assess/Plan/Problems-Billing 72 F with h/o L-sided breast cancer s/p lumpectomy (2008) and radiation c/b chronic wound with final closure in 2010, DM2, HTN c/b possible HFpEF, anxiety, hypothyroidism, presents from ID clinic with recurrent breast infection for 2 months not responsive to outpatient antibiotics and c/b possible sepsis. - Patient Problems (1) Abscess of breast, left Current Visit: Yes Status: Acute Code(s): N61.1 - ABSCESS OF THE BREAST AND NIPPLE SNOMED Code(s): 99609130 Comment: Recurrent infection/abscess s/p I&D in April and again June 14. Ultrasound 06/16 without e/o abscess but L breast wound with poor healing, foul discharge, pain, and concern for sepsis in ID clinic. Admitted from clinic for IV abx. Outpatient cultures with group B strep x 3 and MSSA initially but now on 06/13 growing MRSA. Excision by surgery without malignancy. - Will need MRSA and group B coverage, will discuss with ID Doxy, Clinda or Bactrim - Blood Cx NGTD, likely stable for d/c soon if safe from surgical standpoint - blood glucose control - wound care (2) Diabetes type 2, uncontrolled Current Visit: Yes Status: Acute Code(s): E11.65 - TYPE 2 DIABETES MELLITUS WITH HYPERGLYCEMIA SNOMED Code(s): 706538977 Comment: A1c 11%. Need tighter control given nonhealing wound. - cont lispro ISS - good control in hospital so far, she is on Duraglutiude alone at home, she should be optimized on low dose Metformin at least and Glipizde/Gliptin. - cont home atorvastatin (3) Hypertension with heart disease Current Visit: Yes Status: Acute Code(s): I11.9 - HYPERTENSIVE HEART DISEASE WITHOUT HEART FAILURE SNOMED Code(s): 13123536 Comment: - cont lisinopril (although this could be for diabetic nephropathy?) - cont home furosemide 20mg PO daily (4) Hypothyroid Current Visit: Yes Status: Acute Code(s): E03.9 - HYPOTHYROIDISM, UNSPECIFIED SNOMED Code(s): 58583034 Comment: Continue Levothyroxine (5) Anxiety Current Visit: Yes Status: Acute Code(s): F41.9 - ANXIETY DISORDER, UNSPECIFIED SNOMED Code(s): 87926706 Comment: - cont home benzo prn with standing SSRI (6) Essential tremor Current Visit: Yes Status: Acute Code(s): G25.0 - ESSENTIAL TREMOR SNOMED Code(s): 938308021 Comment: - cont home primidone (7) DVT prophylaxis Current Visit: Yes Status: Acute Code(s): PJM6471 - SNOMED Code(s): 414166967 Comment: cont LMWH daily Status and Disposition: Follow ID recs, update daughter, Full code, remains inpatient for now, possible d/c depending surgery recs
[2018-06-19] MEDS: Insulin LISPRO* 1 UNITS UNIT SUBCUT SCH ×3 (10:17→19:42)
[2018-06-19] MEDS: FLUoxetine CAP* 20 MG PO SCH (10:24)
[2018-06-19] MEDS: Levothyroxine TAB* 50 MCG TAB PO SCH (10:24)
[2018-06-19] MEDS: Furosemide TAB* 20 MG PO SCH (10:24)
[2018-06-19] MEDS: Lisinopril TAB* 5 MG PO SCH (10:24)
[2018-06-19] MEDS: Ibuprofen TAB* 600 MG PO PRN (10:32)
[2018-06-19] MEDS ORDERED: Sulfamethox/Trimethoprim DS 800/160* TAB PO SCH (12:00)
--- NOTE | 2018-06-19 12:33 | PN ---
Progress Note - Progress Note Date of Service: 06/19/18 Note: Here for left breast infection. Afeb Mild pain Feeling a little better Wound widely open, early granulation, no cellulitis, no undrained collection, some fibrinous debris, but nothing that needs debridement. Abx per ID Disch per medicine Will discuss wound care with wound clinic Will cont to follow w/ you.
--- NOTE | 2018-06-19 13:45 | DS ---
DISCHARGE SUMMARY: DATE OF ADMISSION: 06/16/18 DATE OF DISCHARGE: 06/19/18 PRIMARY CARE PROVIDER: Dr. Kulkarni. PRIMARY DIAGNOSIS: Breast abscess. SECONDARY DIAGNOSES: 1. Uncontrolled diabetes. 2. Anxiety. 3. History of breast cancer, status post lumpectomy. 4. Hypertension. 5. Hypothyroidism. 6. Essential tremor. MEDICATIONS ON DISCHARGE: 1. Alprazolam 0.5 mg p.o. b.i.d. 2. Cyclobenzaprine 5 mg p.o. nightly. 3. Fluoxetine 40 mg p.o. q.a.m. 4. Furosemide 40 mg p.o. q.a.m. 5. Levothyroxine 50 mcg p.o. q.a.m. 6. Lisinopril 5 mg p.o. q.a.m. 7. Pravastatin 80 mg p.o. nightly. 8. Primidone 250 mg p.o. nightly. 9. Bactrim 800/160 one tab p.o. b.i.d. for additional 10 days after discharge. 10. Glipizide extended release 5 mg p.o. daily. 11. Victoza 0.6 mg subcutaneous daily. 12. Metformin extended release 500 mg p.o. daily. 13. Ondansetron 4 mg p.o. q.6 hours p.r.n. Changes to medications on this hospitalization are the addition of Bactrim for 10 days after discharge with the addition of extended release metformin and extended release glipizide. All other medications are the same. PRESENTATION OF ILLNESS AND HOSPITAL COURSE: A 72-year-old female with above past medical history who presented to the infectious Disease clinic with recurrent left breast abscess from her old lumpectomy site that had been followed by Surgery for some time, was feeling increasingly unwell on doxycycline and was referred to Infectious Disease by her surgeon. She looked acutely unwell and she was referred to hospital for further evaluation for workup for possible bacteremia. On presentation to the emergency room, her vital signs were normal. Her blood work was unremarkable for leukocytosis and CMP was unremarkable. Her blood glucose was elevated with an A1c of 11. She was admitted to the hospital for IV antibiotics while culture data was pending. Over the course of her hospitalization, her wound culture data from 06/13/18, ended up going group B strep, Staph lugdunensis and MRSA ultimately, which resulted on 06/19/18. Her hospital course by problem is as follows: 1. Breast abscess as above. Surgery did consult the patient on day of discharge and felt that further workup in the clinic was reasonable given her poor diabetic control. Her antibiotics were changed from doxycycline to Bactrim for MRSA coverage and group B strep as well in the setting of outpatient failure with doxycycline. She is discharged on 10 days and this may need to be extended to 14 days as needed depending on clinical improvement. 2. Diabetes. Her A1c is 11. She is on Victoza alone. Discussion with the patient to add extended release metformin. She had previously failed immediate release metformin, but was going to be retrying glipizide extended release was also added for 3 agents for an A1c greater than 10. The patient was resistant to insulin teaching and it is reasonable to try oral 3-agent regimen on discharge to see if better control will help assist in wound healing. 3. Anxiety. Her home medications were given. 4. Hypertension. Her lisinopril and furosemide were continued. 5. Hypothyroid. Her levothyroxine was continued. 6. Essential tremor. Her primidone was continued. On the day of discharge, the patient is ambulating, tolerating p.o., feeling better than when she presented to the ID clinic initially and is now appropriately covered on the right antibiotics for her wound culture. She has no further questions and is amenable to continuing to follow with her primary care provider as well as Surgery for discussion of further surgical procedures or debridement that may be done once she has completed a course of appropriate treatment for current infection and also has achieved better diabetes control. Of note, there was a routine suture in the pocket of the biopsy site, which may have been a nidus for this infection and this has since been removed. ISSUES TO FOLLOW UP ON POST DISCHARGE: 1. Breast abscess as above. She should follow up with Dr. Zarco and continue to discuss if this breast abscess pocket is amenable to further surgical interventions once she has achieved better diabetic control. 2. Uncontrolled diabetes. The patient should be maintained on tighter diabetic control to promote wound healing with an A1c goal at her age of at least less than 8, currently at 13 on this hospitalization with hyperglycemia into the 200s and 300s, which may represent obviously acute infection, but A1c reflects a pattern of poor control. We have added extended release metformin as well as glipizide to her Victoza and she will follow up with primary care provider. DATA IN THIS HOSPITALIZATION: Included a breast ultrasound, which was done on 06/16/18, which showed a diffuse soft tissue edema and wound packing at the 12 o 'clock position of the breast with no residual abscess collection, status post an I and D, and micro as above. Her Gram stain grew MRSA group B strep and other staph species. Her blood cultures remained no growth today. TIME SPENT: Thirty minutes was spent on the planning of this discharge and the patient and her family are in agreement with plan. She will follow up with Dr. Kulkarni as well as Dr. Zarco, and hopefully with appropriate antibiotic coverage , we will continue to have improved outpatient outcomes along with addition of tighter glycemic control. If there are any questions regarding the care of this patient during this hospitalization, please do not hesitate to reach out. [id number]/CPS #: [id number] MTDD
[2018-06-19] MEDS: oxyCODONE TAB* 5 MG TAB PO PRN (14:31)
[2018-06-19 15:42] VITALS: BP 142/65
== END 2018-06-19 16:40 | disposition home or self-care (01) | DRG 601 ==
LOC: MED 13:12
PROVIDERS: ADMIT Student in an Organized Health Care Education/Training Program; ATTEND Internal Medicine
DX: N61.1 Abscess of the breast and nipple (principal); E11.65 Type 2 diabetes mellitus with hyperglycemia; B95.62 Methicillin resistant Staphylococcus aureus infection as the cause of diseases classified elsewhere; F41.9 Anxiety disorder, unspecified; I10 Essential (primary) hypertension; E03.9 Hypothyroidism, unspecified; B95.1 Streptococcus, group B, as the cause of diseases classified elsewhere; G25.0 Essential tremor; D50.9 Iron deficiency anemia, unspecified; K21.9 Gastro-esophageal reflux disease without esophagitis; E78.5 Hyperlipidemia, unspecified; Z85.3 Personal history of malignant neoplasm of breast; Z79.4 Long term (current) use of insulin; Z79.899 Other long term (current) drug therapy; Z91.041 Radiographic dye allergy status; Z88.0 Allergy status to penicillin; Z88.8 Allergy status to other drugs, medicaments and biological substances; Z91.018 Allergy to other foods; Z83.3 Family history of diabetes mellitus; Z82.69 Family history of other diseases of the musculoskeletal system and connective tissue
CPT/HCPCS: 36415; 80048; 80053; 81003; 83036; 83735; 84443; 85025; 87040; A9270-GY; J0696; J1644; J1650; J2405; J3490

== ENCOUNTER → 2018-12-12 | Day surgery (SDC) | payer MEDICARE ==
[~2018-12-12] MED LIST changes: -Acetaminophen TAB* 325 MG PO PRN; -Buffered Lidocaine 0.9% SYRIN* 5 ML/SYR SYRINGE INTRADERM ONE; +Buffered Lidocaine 1% SYRIN* 1 ML/SYRINGE INTRADERM ONE; +Bupivacaine 0.25% SDV PF* 10 ML VIAL INJ ONE; -Cyclopentolate 1% OPTH.SOL* 2 ML BTL ONE; +Dexamethasone IV* 4 MG/ML 1 ML (4 MG) ONE; +DiMENhydriNATE IV* 50 MG/ML VIAL IV PUSH PRN; +EPHEDrine (Pressors)* 50 MG/ML VIAL ONE; +Famotidine IV* 10 MG/ML 2 ML (20 mg) IV ONE; +Famotidine IV* 10 MG/ML 2 ML (20 mg) ONE; +Glycopyrrolate IV* 0.2 MG/ML 1 ML VIAL ONE; +HYDROcodone/ACETAMIN 5-325 MG* 1 TAB ONE; +Heparin VIAL(*) 5000 UNITS/ML VIAL (FIVE THOUSAND) ONE; -Ketorolac 0.5% OPHTH (NF) 0.5 % 5 ML BTL ONE; +Lactated Ringers 1000 ML Bag* 1,000 ML IV SCH; +Lidocaine 1% w EPI 1:100,000* MDV 20 ML VIAL ONE; -Lidocaine 1%* 5 ML VIAL ONE; -Lidocaine 2% EPI 1:200000 MPF*10-20 ML VIAL ONE; +Lidocaine 2% PF * 5 ML VIAL ONE; +Methylene Blue 0.5 %* 50 MG/10 ML AMP IV ONE; -Midazolam* 1 MG/ML 2 ML VIAL (2 MG) ONE; +Naloxone* 0.4 MG/ML 1 ML VIAL IV PRN; -Neomycin/Polymy/Dex OPTH.SUSP* MAXITROL 0.1% 5 ML ONE; +Ondansetron INJ* 2 MG/ML VIAL ONE; -Phenylephrine 2.5% OPTH.SOL* 2 ML BTL ONE; -Povidone Iodine 5% OPTH* 30 ML BTL ONE; -Proparacaine 0.5% OPHTH.SOL* 15 ML BTL ONE; +Propofol* 10 MG/ML 20 ML BTL ONE; +Scopolamine 1.5 mg* PATCH ONE; +Vancomycin 1500 MG IV - x ONCE IVPB ONE; -acetaZOLAMIDE TAB* 250 MG ONE; +fentaNYL* 50 MCG/ML 2 ML VIAL (100 MCG VIAL) ONE
[2018-12-12] MEDS: fentaNYL* 50 MCG/ML 2 ML VIAL (100 MCG VIAL) IV PRN ×5 (09:53→12:24)
[2018-12-12 14:06] VITALS: BP 147/71
== END | disposition home or self-care (01) ==
LOC: OR 05:54
PROVIDERS: ATTEND Plastic Surgery
DX: T81.42XA Infection following a procedure, deep incisional surgical site, initial encounter (principal); Z85.3 Personal history of malignant neoplasm of breast; E11.9 Type 2 diabetes mellitus without complications; Z79.4 Long term (current) use of insulin; Z79.84 Long term (current) use of oral hypoglycemic drugs; I10 Essential (primary) hypertension; D50.9 Iron deficiency anemia, unspecified; R25.1 Tremor, unspecified; E78.5 Hyperlipidemia, unspecified; E03.9 Hypothyroidism, unspecified
CPT/HCPCS: 88305; 88311; A9270-GY; A9272-GY; J1100; J1644; J2405; J2704; J3010; J3370; J3490

== ENCOUNTER 2019-01-03 15:18 | Inpatient (IN) | payer MEDICARE ==
--- OUTSIDE RECORDS SUMMARY | 2019-01-03 15:39 | XMS REPORT | Continuity of Care Document ---
:1945 External Reference #:[id number] Author Name Yoel Tee M.D. (transmitted by agent of provider Mary Sutherland) Address [address] [place] [address], [place] [address] Care Team Providers Name Role Phone Mariusz Kulkarni MD - Family Care Team Information Corporate Sales Representative [phone] Medicine Problems Active Problems Provider Date Essential tremor Mere Blakely M.D. Onset: 01/23/2015 Abnormal involuntary movement Yoel Tee M.D. Onset: 03/09/2018 Chronic fatigue syndrome Yoel Tee M.D. Onset: 03/09/2018 Social History Type Date Description Comments Sex Unknown ETOH Use Denies alcohol use Tobacco Use Start: Unknown Patient has never smoked Smoking Status Reviewed: 12/26/18 Patient has never smoked Exercise Type/Frequency Exercises sporadically Allergies, Adverse Reactions, Alerts Active Allergies Reaction Severity Comments Date PCN rash,swelling 01/23/2003 [facility]agliptin from [facility] [place] 08/09/18 08/22/2018 Pregabalin from [facility] [place] 08/09/18 08/22/[address] [place] [address] Contrast 08/22/2018 Medications Active Medications SIG Qnty Indications Ordering Date Provider Sulfamethoxazole/Trimet 1 Tab PO bid 6tabs Kelly Chaney 08/22/2018 blayne DelcidkenAZAEL case 800-160mg Tablets Xanax 1 po bid soheilan Ben Tillman 01/22/2003 0.5mg Tablets Mary Goode Fluoxetine HCL 1 by mouth every 90caps Unknown 40mg day Capsules Levothyroxine Sodium 1 by mouth every 90tabs Unknown 50mcg day Tablets Lisinopril 1 po qd 30tabs Unknown 5mg Tablets Multivitamins 1 po qd 90tabs Unknown Tablets Pravastatin Sodium 1 tablet once 30tabs Unknown 40mg daily at bedtime Tablets Cyclobenzaprine HCL 1 tab po as Arthur, 5mg needed Nohemi, FOUNDATION ASSISTANT Tablets Primidone take one tab po Unknown 250mg Tablets d Ondansetron dissolve one Unknown 4mg Tablets tablet orally Dispers every 4 hours as needed for nausea. Furosemide 1 to 2 t by Unknown 20mg Tablets mouth d as directed for fluid overload Trulicity inject 0.75mg Unknown 0.75mg/0.5ML once a week Solution Pen-Inject Metformin HCL 1 by mouth once Unknown 500mg Tablets a day Lantus as directed Unknown 100Unit/ML Solution Medications Administered in Office Medication SIG Qnty Indications Ordering Provider Date Inj, Regadenoson, 0.1 MG Pancho Lopez M.D., 07/11/2012 Injection BROOKE BELCHER Technetium TC 99M Pancho Lopez M.D., 07/11/2012 Tetrofosmin, Per Unit Dose BROOKE BELCHER Up To 40 Millicuries Injection Immunizations Description No Information Available Vital Signs Date Vital Result Comment 12/26/2018 9:29am Height 66 inches 5'6" Weight 141.00 lb Heart Rate 79 /min BP Systolic Sitting 128 mmHg BP Diastolic Sitting 64 mmHg Respiratory Rate 18 /min O2 % BldC Oximetry 97 % BMI (Body Mass Index) 22.8 kg/m2 08/23/2018 9:45am Height 66 inches 5'6" Weight 237.00 lb w/o shoes Heart Rate 86 /min reg BP Systolic Sitting 130 mmHg Rue lg cuff BP Diastolic Sitting 70 mmHg Rue lg cuff BP Systolic Standing 126 mmHg Lue lg cuff BP Diastolic Standing 66 mmHg Lue lg cuff Respiratory Rate 17 /min BMI (Body Mass Index) 38.2 kg/m2 Results Test Date Facility Test Result H/L Range Note Laboratory test 12/12/2018 [facility] Surgical SEE RESULT [address] [address] [phone] Laboratory test 11/16/2018 [facility] Point of Care 122 mg/dL High 70-100 [address] Glucose [place], [place] [id number] [phone] Laboratory test 11/16/2018 [facility] Point [facility] Care 148 mg/dL High 70-100 [address] [place], [place] [id number] [phone] Laboratory test 11/14/2018 [facility] Point [facility] 128 mg/dL High 70-100 [address] [place] [address] [phone] Laboratory test 11/14/2018 [facility] 176 mg/dL High 70-100 [address] [place] [address] [phone] Laboratory test 11/13/2018 [facility] Point [facility] 135 mg/dL High 70-100 [address] [place], [place] [address] [phone] Laboratory test 11/13/2018 [facility] Point [facility] 150 mg/dL High 70-100 [address] [place], [place] [address] [phone] Laboratory test 11/09/2018 [facility] 133 mg/dL High 70-100 [address] [place] [address] [phone] Laboratory test 11/09/2018 [facility] 167 mg/dL High 70-100 [address] [place], [place] [address] [phone] Laboratory test 10/09/2018 [facility] 92 mg/dL Normal 70-100 [address] [place], [place] [address] [phone] Laboratory test 08/25/2018 [facility] Point [facility] 160 mg/dL High 70-100 [address] [place] [address] [phone] Laboratory test 08/25/2018 [facility] Surgical SEE RESULT [address] [address] [phone] Laboratory test 08/25/2018 [facility] Point of Care 85 mg/dL Normal 70-100 [address] [place] [address] [phone] Laboratory test 08/25/2018 [facility] Point [facility] Care 69 mg/dL Low 70-100 [address] [place], [place] [address] [phone] 1 SEE RESULT BELOW Name: OLINDA STOVALL : [address]: Girma Kapoor MD Acct: [id number] Unit: [id number] AGE: 72 Location: OR Re12/12/18 SEX: F Status: [place] [facility] [place] SPEC: [id number] JANETH: 12/12/18- SUBM DR: Girma Kapoor MD REQ: [id number] RECD: 12/12/18 STATUS: ALANNAH LEVI DR: Chato George MD _ ORDERED: Maximus, LEVEL 4 FINAL DIAGNOSIS Breast, left, excision: -- Ulcer and ulcer bed with inflamed sinus tract. -- No evidence of neoplasia. -- Calcified adipose tissue with fat necrosis. PATHOLOGY SURGICAL CONSULT CLINICAL HISTORY History status post radiation and lumpectomy PRE-OPERATIVE DIAGNOSIS Left breast non-healing wound GROSS DESCRIPTION The specimen is received in formalin labeled, Excision Non-Healing Wound Left Breast, and consists of a 15.0 by up to 9.5 cm wiseman-pink wrinkled skin fragment excised to a maximum depth of 5.4 cm with an eccentric 5.1 x 3.3 by up to 0.6 cm areola and nipple. There is a central 4.9 x 3.2 x 2.8 cm indurated cavitating ulcer, 2.0 cm from the nearest skin margin and 2.8 cm from the nipple. There is a 2.5 x 1.5 x 0.8 cm yellow calcified subcutaneous lesion, 0.4 cm from the skin, 0.7 cm from the ulcer and 0.8 cm from the nipple. The CONTINUED ON NEXT PAGE DEPARTMENT OF PATHOLOGY, [address] [place] [address] Dom Baldwin M.D. Director [facility] # [id number] RUN DATE: 12/13/18 [facility] LAB LIVE PAGE 2 Patient: OLINDA STOVALL [id number] (Continued) GROSS DESCRIPTION (Continued) remaining cut surface consists of yellow lobulated adipose tissue with a small amount of interspersed wiseman-white fibrous tissue. The specimen is inked, serially sectioned and dairy supplies sales representative sections are submitted in cassettes A through F as follows: A and B-nipple, C through E-ulcer and F-calcified nodule following decalcification. Signed by and Reported on: Nohemi Palmer MD 12/13/18 1441 END OF REPORT DEPARTMENT OF PATHOLOGY, [address] [place] [address] Dom Baldwin M.D. Director [facility] # [id number] 2 Account Retention Representative: [id number] 3 Account Retention Representative: [id number] 4 Account Retention Representative: [id number] 5 Account Retention Representative: [id number] 6 Account Retention Representative: [id number] 7 Account Retention Representative: [id number] 8 Account Retention Representative: [id number] 9 Account Retention Representative: [id number] 10 Account Retention Representative: [id number] 11 Account Retention Representative: [id number] 12 SEE RESULT BELOW Name: OLINDA STOVALL : [address]: Lyla López MD Acct: [id number] Unit: [id number] AGE: 72 Location: OR Re08/25/18 SEX: F Status: REG [facility] [place] SPEC: [id number] JANETH: 08/25/18- [facility] DR: Lyla López MD REQ: [id number] RECD: 08/25/18105 STATUS: SOUT _ ORDERED: LEVEL 5 FINAL DIAGNOSIS Breast, left, excision: -- Skin and subcutaneous tissue with organized abscess. -- No breast parenchyma is identified. -- No evidence of neoplasia is identified. PRE-OPERATIVE DIAGNOSIS left breast wound; usual markings long- lateral, medium- medial, short- superior GROSS DESCRIPTION The specimen is received in formalin labeled, Excision Left Breast Wound, and consists of a 4.5 x 3.9 x 2.9 cm yellow ovoid rubbery focally disrupted portion of fibrofatty soft tissue with three attached sutures which are designated as follows: long-lateral, short-superior and medium-medial. The specimen is partially surfaced by a 3.5 x 1.0 cm wiseman- white wrinkled skin ellipse on the mid anterior surface with a central 2.6 by up to 0.3 cm defect which extends into the soft tissue to form a central cavity. The cut surface is predominantly wiseman-pink rubbery to fibrotic and focally erythematous with a small amount of interspersed yellow adipose tissue. A definitive lesion is not identified. The specimen is inked as follows: superior anterior-blue, inferior anterior-green and deep-black, serially sectioned from lateral to medial and dairy supplies sales representative sections are submitted in cassettes A through H. Signed by and Reported on: Dom Baldwin MD 1552 END OF REPORT DEPARTMENT OF PATHOLOGY, [address] [place] [address] Dom Baldwin M.D. Director [facility] # [id number] 13 Account Retention Representative: [id number] Account Retention Representative: [id number] Procedures Date Code Description Status 11/16/2018 22743 Hyperbaric Oxygen Therapy By Physician Completed 11/14/2018 05856 Hyperbaric Oxygen Therapy By Physician Completed 11/09/2018 88996 Hyperbaric Oxygen Therapy By Physician Completed 11/08/2018 43415 Hyperbaric Oxygen Therapy By Physician Completed 11/07/2018 13958 Hyperbaric Oxygen Therapy By Physician Completed 11/02/2018 71713 Hyperbaric Oxygen Therapy By Physician Completed 11/01/2018 34964 Hyperbaric Oxygen Therapy By Physician Completed 10/31/2018 23249 Hyperbaric Oxygen Therapy By Physician Completed 10/27/2018 72081 Hyperbaric Oxygen Therapy By Physician Completed 10/26/2018 57924 Hyperbaric Oxygen Therapy By Physician Completed 10/25/2018 54285 Hyperbaric Oxygen Therapy By Physician Completed 10/24/2018 52955 Hyperbaric Oxygen Therapy By Physician Completed 10/20/2018 50312 Hyperbaric Oxygen Therapy By Physician Completed 10/19/2018 17267 Hyperbaric Oxygen Therapy By Physician Completed 10/18/2018 94300 Hyperbaric Oxygen Therapy By Physician Completed 10/17/2018 26798 Hyperbaric Oxygen Therapy By Physician Completed 10/11/2018 69788 Hyperbaric Oxygen Therapy By Physician Completed 10/10/2018 37766 Hyperbaric Oxygen Therapy By Physician Completed 10/06/2018 46329 Hyperbaric Oxygen Therapy By Physician Completed 10/05/2018 38496 Hyperbaric Oxygen Therapy By Physician Completed 10/03/2018 27098 Hyperbaric Oxygen Therapy By Physician Completed 09/29/2018 00878 Hyperbaric Oxygen Therapy By Physician Completed 09/28/2018 06861 Hyperbaric Oxygen Therapy By Physician Completed 09/27/2018 43938 Hyperbaric Oxygen Therapy By Physician Completed 09/27/2018 69974 Removal Devitalization Tissue Wound Less Than Equal 20 Completed Square CM 09/26/2018 04486 Hyperbaric Oxygen Therapy By Physician Completed 09/25/2018 69407 Hyperbaric Oxygen Therapy By Physician Completed 09/22/2018 76358 Hyperbaric Oxygen Therapy By Physician Completed 09/21/2018 53204 Hyperbaric Oxygen Therapy By Physician Completed 09/20/2018 24635 Hyperbaric Oxygen Therapy By Physician Completed 09/19/2018 10554 Hyperbaric Oxygen Therapy By Physician Completed 08/31/2018 16519 Spirometry Incl Graphic Record Completed 08/30/2018 15935 ECHO Transthorasic Realtime 2D W Doppler & Color Flow Completed Hosp 08/25/2018 44004 Excise Breast Lesion Completed 08/23/2018 22394 EKG Tracing & Interpretation Completed 06/09/2017 [id number] Colonoscopy Completed Medical Devices Description No Information Available Encounters Type Date Location Provider Dx Diagnosis Office Visit 12/26/2018 [place] Yoel Tee, G25.0 Essential tremor 9:15a [facility] R26.81 Unsteadiness on feet E11.69 Type 2 diabetes mellitus with other specified complication Office Visit 08/23/2018 10:00a [facility] Robin Harden R01.1 Cardiac murmur, Of [facility] Fang, DO unspecified FAC Z01.810 Encounter for preprocedural cardiovascular examination E11.69 Type 2 diabetes mellitus with other specified complication E78.5 Hyperlipidemia, unspecified I10 Essential (primary) hypertension N61.1 Abscess of the breast and nipple Office Visit 07/11/2018 8:50a [facility] Uma Alberts N61.1 Abscess of the Infectious Mary Jeffrey breast and Diseases nipple Office Visit 06/27/2018 11:30a [place] Chema Alberts N61.1 Abscess of the Infectious Mary Jeffrey breast and Diseases nipple R11.0 Nausea Assessments Date Code Description Provider 12/26/2018 G25.0 Essential tremor Yoel Tee M.D. 12/26/2018 R26.81 Unsteadiness on feet Yoel Tee M.D. 12/26/2018 E11.69 Type 2 diabetes mellitus with other Yoel Tee M.D. specified complication 11/16/2018 L59.8 Other specified disorders of the skin Clay Romero M.D. and subcutaneous tissue related to radiation 11/16/2018 N64.89 Other specified disorders of breast Clay Romero M.D. 11/15/2018 L59.9 Disorder of the skin and subcutaneous Lyla López MD tissue related to radiation, unspecified 11/14/2018 L59.8 Other specified disorders of the skin Clay Romero M.D. and subcutaneous tissue related to radiation 11/14/2018 N64.89 Other specified disorders of breast Clay Romero M.D. 11/14/2018 M79.9 Soft tissue disorder, unspecified Clay Romero M.D. 11/14/2018 L59.9 Disorder of the skin and subcutaneous Clay Romero M.D. tissue related to radiation, unspecified 11/09/2018 L59.8 Other specified disorders of the skin Clay Romero M.D. and subcutaneous tissue related to radiation 11/09/2018 N64.89 Other specified disorders of breast Clay Romero M.D. 11/08/2018 L59.9 Disorder of the skin and subcutaneous Jose Juan Mayorga MD tissue related to radiation, unspecified 11/08/2018 N61.1 Abscess of the breast and nipple Jose Juan Mayorga MD 11/08/2018 L59.8 Other specified disorders of the skin Jose Juan Mayorga MD and subcutaneous tissue related to radiation 11/07/2018 L59.8 Other specified disorders of the skin Clay Romero M.D. and subcutaneous tissue related to radiation 11/07/2018 N64.89 Other specified disorders of breast Clay Romero M.D. 11/02/2018 L59.8 Other specified disorders of the skin Clay Romero M.D. and subcutaneous tissue related to radiation 11/02/2018 N64.89 Other specified disorders of breast Clay Romero M.D. 11/01/2018 N61.1 Abscess of the breast and nipple Lyla López MD 11/01/2018 L59.8 Other specified disorders of the skin Jose Juan Mayorga MD and subcutaneous tissue related to radiation 10/31/2018 L59.8 Other specified disorders of the skin Clay Romero M.D. and subcutaneous tissu 10/31/2018 N64.89 Other specified disorders of breast Clay Romero M.D. 10/27/2018 L59.8 Other specified disorders of the skin Robin Del Rio MD, FACS and subcutaneous tissu 10/26/2018 L59.8 Other specified disorders of the skin Clay Romero M.D. and subcutaneous tissu 10/26/2018 N64.89 Other specified disorders of breast Clay Romero M.D. 10/25/2018 L59.8 Other specified disorders of the skin Jose Juan Mayorga MD and subcutaneous tissue related to radiation 10/25/2018 N61.1 Abscess of the breast and nipple Lyla López MD 10/24/2018 L59.8 Other specified disorders of the skin Clay Romero M.D. and subcutaneous tissu 10/24/2018 N64.89 Other specified disorders of breast Clay Romero M.D. 10/20/2018 L59.8 Other specified disorders of the skin Robin Del Rio MD, FACS and subcutaneous tissu 10/19/2018 L59.8 Other specified disorders of the skin Clay Romero M.D. and subcutaneous tissu 10/19/2018 N64.89 Other specified disorders of breast Clay Romero M.D. 10/18/2018 L59.9 Disorder of the skin and subcutaneous Jose Juan Mayorga MD tissue related to radi 10/18/2018 L59.8 Other specified disorders of the skin Jose Juan Mayorga MD and subcutaneous tissu 10/17/2018 L59.8 Other specified disorders of the skin Clay Romero M.D. and subcutaneous tissu 10/17/2018 N64.89 Other specified disorders of breast Clay Romero M.D. 10/11/2018 N61.1 Abscess of the breast and nipple Lyla López MD 10/11/2018 L59.9 Disorder of the skin and subcutaneous Lyla López MD tissue related to radi 10/11/2018 L59.8 Other specified disorders of the skin Lyla López MD and subcutaneous tissu 10/10/2018 L59.8 Other specified disorders of the skin Clay Romero M.D. and subcutaneous tissu 10/10/2018 N64.89 Other specified disorders of breast Clay Romero M.D. 10/06/2018 L59.8 Other specified disorders of the skin Clay Romero M.D. and subcutaneous tissu 10/06/2018 N64.89 Other specified disorders of breast Clay Romero M.D. 10/05/2018 L59.8 Other specified disorders of the skin Clay Romero M.D. and subcutaneous tissu 10/05/2018 N64.89 Other specified disorders of breast Clay Romero M.D. 10/04/2018 B95.62 Methicillin resistant Staphylococcus Lyla López MD aureus infection as the 10/04/2018 N61.1 Abscess of the breast and nipple Lyla López MD 10/03/2018 L59.8 Other specified disorders of the skin Clay Romero M.D. and subcutaneous tissu 09/29/2018 L59.8 Other specified disorders of the skin Robin Del Rio MD, FACS and subcutaneous tissu 09/28/2018 L59.8 Other specified disorders of the skin Clay Romero M.D. and subcutaneous tissu 09/27/2018 L59.8 Other specified disorders of the skin Jose Juan Mayorga MD and subcutaneous tissu 09/27/2018 L59.9 Disorder of the skin and subcutaneous Lyla López MD tissue related to radi 09/27/2018 L59.8 Other specified disorders of the skin Lyla López MD and subcutaneous tissu 09/26/2018 L59.9 Disorder of the skin and subcutaneous Clay Romero M.D. tissue related to radi 09/26/2018 N64.89 Other specified disorders of breast Clay Romero M.D. 09/25/2018 L59.8 Other specified disorders of the skin Lyla López MD and subcutaneous tissu 09/22/2018 L59.8 Other specified disorders of the skin Robin Del Rio MD, FACS and subcutaneous tissu 09/21/2018 L59.9 Disorder of the skin and subcutaneous Clay Romero M.D. tissue related to radi 09/21/2018 N64.89 Other specified disorders of breast Clay Romero M.D. 09/20/2018 L59.8 Other specified disorders of the skin Jose Juan Mayorga MD and subcutaneous tissu 09/20/2018 L59.8 Other specified disorders of the skin Jose Juan Mayorga MD and subcutaneous tissu 09/19/2018 N64.89 Other specified disorders of breast Clay Romero M.D. 09/19/2018 L59.8 Other specified disorders of the skin Clay Romero M.D. and subcutaneous tissu 09/13/2018 L59.8 Other specified disorders of the skin Jose Juan Mayorga MD and subcutaneous tissu 09/08/2018 N61.1 Abscess of the breast and nipple Robin Del Rio MD, FACS 09/08/2018 R01.1 Cardiac murmur, unspecified Robin Del Rio MD, FACS 09/08/2018 L59.8 Other specified disorders of the skin Robin Del Rio MD, FACS and subcutaneous tissu 09/06/2018 N61.1 Abscess of the breast and nipple Jose Juan Mayorga MD 09/06/2018 R01.1 Cardiac murmur, unspecified Jose Juan Mayorga MD 09/06/2018 L59.8 Other specified disorders of the skin Jose Juan Mayorga MD and subcutaneous tissu 08/31/2018 J44.9 Chronic obstructive pulmonary disease, Ernestina Saldana MD unspecified 08/30/2018 R01.1 Cardiac murmur, unspecified Robin Fang, DO FAC 08/30/2018 N61.1 Abscess of the breast and nipple Lyla López MD 08/25/2018 N64.89 Other specified disorders of breast Lyla López MD 08/25/2018 T81.89xA Oth complications of procedures, NEC, Lyla López MD init 08/23/2018 R01.1 Cardiac murmur, unspecified Robin Fang, DO FACC 08/23/2018 Z01.810 Encounter for preprocedural Robin Fang, DO [facility] cardiovascular examination 08/23/2018 E11.69 Type 2 diabetes mellitus with other Robin Fang, DO [facility] specified complication 08/23/2018 E78.5 Hyperlipidemia, unspecified Robin Fang, DO [facility] 08/23/2018 I10 Essential (primary) hypertension Robin Fang, DO [facility] 08/23/2018 N61.1 Abscess of the breast and nipple Robincrystal Fang, DO [facility] 08/22/2018 N61.1 Abscess of the breast and nipple Kelly Velazquez, PHOTOGRAPHIC PRINTER 08/22/2018 Z01.818 Encounter for other preprocedural Kelly Velazquez , PHOTOGRAPHIC PRINTER examination 08/16/2018 N61.1 Abscess of the breast and nipple Lyla López MD 08/14/2018 N61.1 Abscess of the breast and nipple Lyla López MD 08/09/2018 N61.1 Abscess of the breast and nipple Lyla López MD 07/19/2018 N61.1 Abscess of the breast and nipple Lyla López MD 07/12/2018 N61.1 Abscess of the breast and nipple Jose Juan Mayorga MD 07/11/2018 N61.1 Abscess of the breast and nipple Chato Jeffrey M.D. 07/05/2018 N61.1 Abscess of the breast and nipple Jose Juan Mayorga MD 06/28/2018 N61.1 Abscess of the breast and nipple Jose Juan Mayorga MD 06/27/2018 N61.1 Abscess of the breast and nipple Chato Jeffrey M.D. 06/27/2018 R11.0 Nausea Chato Jeffrey M.D. Plan of Treatment Future Appointment(s):03/19/2019 8:00 am - [facility] N.P[facility] at [facility]12/26/2018 - Yoel Tee M.D.G25.0 Essential tremorFollow up:3 months ok with FlakoR26.81 Unsteadiness on feetE11.69 Type 2 diabetes mellitus with other specified complication Functional Status Description No Information Available Mental Status Description No Information Available Referrals Refer to Reason for Referral Status Appt Date Pancho Lopez MD, FACC, Pt. being considered for HBO Closed 08/23/2018 FASNC therapy; will need cardiology clearance due to recent h/o new heart murmur. [address] [place] [address] [phone]
[2019-01-03 16:29] LABS: ABS Eosinophils 0.2 10^3/ul (0-0.6); ABS Lymphocytes 1.9 10^3/ul (1.0-4.8); ABS Monocytes 0.4 10^3/ul (0-0.8); ABS Neutrophils 3.2 10^3/ul (1.5-7.7); Hematocrit 34 % (35-47); Hemoglobin 11.6 g/dL (12.0-16.0); Lymphocyte % 33.4 %; Mean Corpuscular HGB Conc 34 g/dL (31-36); Mean Corpuscular Hemoglobin 32 pg (27-31); Mean Corpuscular Volume 93 fL (80-97); Mean Platelet Volume 6.6 fL (7.4-10.4); Platelet Count 258 10^3/uL (150-450); Red Blood Count 3.68 10^6 /uL (3.70-4.87); Red Cell Distribution Width 14 % (10-15); White Blood Count 5.8 10^3/uL (3.5-10.8)
[2019-01-03 16:37] LABS: Activated Partial Thrombo Time 36.4 seconds (26.0-38.0); INR 0.97 (0.82-1.09)
[2019-01-03 16:53] LABS: Albumin 3.7 g/dL (3.2-5.2); Albumin/Globulin Ratio 1.1 (1-3); BUN/Creatinine Ratio 23.4 (8-20); C Reactive Protein 26.7 mg/L (<8.01); EGFR African American 89.4 (>60); EGFR Non-African American 73.9 (>60); Globulin 3.4 g/dL (2-4); Potassium 4.5 mmol/L (3.5-5.0); Total Bilirubin 0.2 mg/dL (0.2-1.0); Total Protein 7.1 g/dL (6.4-8.9)
--- NOTE | 2019-01-03 17:12 | ED ---
Complex/Multi-Sys Presentation - HPI Summary HPI Summary: This patient is a 73 year old F presenting to [facility] accompanied by her with a chief complaint of left breast pain since 01/01/19 and fever since . Patient states that on 01/02/19 she had her highest temp at home documented at 101.3F. Patient states that Dr. Kapoor preformed a revision of her left breast on 12/12/18, after pt had a nonhealing wound since Apr 2018, s/p original left breast lumpectomy for cancer in 2008 followed by radiation. She had a wound infection after the original surgery but it healed and pt was without a problem or infection until Apr 2018. Despite IV and po antibiotics and hyperbaric therapy the wound it has not healed. Pt was seen in the office by Dr. Kapoor on 01/01/19, and when patient called Dr. Kapoor regarding the fever, whe was referred to the ED for further evaluation and treatment. The drain that was in her wound had been removed 12/27/18. And pt has been on po Bactrim until 3 days ago. Patient states that she thought the discomfort that was coming from her left breast was because she was not massaging the incision site properly. The patient rates the pain 6/10 in severity per lease picker note. Symptoms aggravated by nothing. Symptoms alleviated by nothing. Patient reports fever, cough, weakness and fatigue. Patient denies SOB, CP, calf pain and leg pain. Pt did not meet SIRS criteria at triage. Allergies Allergy/AdvReac Type Severity Reaction Status Date / Time sitagliptin [From Januvia] Allergy Severe See Comment Verified 01/03/19 15:30 Penicillins Allergy Unknown Swelling Verified 01/03/19 15:30 pregabalin [From Lyrica] Allergy Unknown Unknown Verified 01/03/19 15:30 Reaction Details tomato AdvReac GI Upset Verified 01/03/19 15:[address] CONTRAST Allergy SEVERE GI Uncoded 01/03/19 15:30 UPSET Home Medications Medication Instructions Recorded Confirmed Type FLUoxetine CAP* [Prozac CAP*] 40 mg PO QAM 04/06/16 01/03/19 History Levothyroxine TAB* [Synthroid TAB*] 50 mcg PO QAM 04/06/16 01/03/19 History Lisinopril TAB* [Prinivil TAB 5 5 mg PO QAM 04/06/16 01/03/19 History MG*] Cyclobenzaprine (NF) 5 - 10 mg PO BEDTIME PRN MDD 10MG 09/22/16 01/03/19 History [Cyclobenzaprine 5 MG (NF)] Ondansetron ODT TAB* [Zofran 4 MG 4 mg PO Q8HR PRN 10/20/16 01/03/19 History Odt TAB*] Cholecalciferol TAB* [Vitamin D 2,000 units PO QAM 11/30/18 01/03/19 History TAB*] Furosemide TAB* [Lasix TAB*] 40 mg PO DAILY PRN 11/30/18 01/03/19 History Insulin Glargine,Hum.rec.anlog 20 unit SQ BEDTIME 11/30/18 01/03/19 History [Lantus Solostar] Vit C/E/Zn/Coppr/Lutein/Zeaxan 1 tab PO QPM 11/30/18 01/03/19 History [Preservision Areds 2 Softgel] Mupirocin 2% OINT* [Bactroban 2 % 1 applic TOPICAL BID PRN 01/03/19 01/03/19 History Oint*] Pravastatin (NF) [Pravachol (NF)] 40 mg PO DAILY 01/03/19 01/03/19 History Primidone TAB(*) [Mysoline TAB(*)] 300 mg PO BEDTIME 01/03/19 01/03/19 History glipiZIDE TAB* [Glucotrol TAB*] 5 mg PO QAM 01/03/19 01/03/19 History metFORMIN* [Glucophage 500 MG TAB 500 mg PO DAILY 01/03/19 01/03/19 History *] - History Of Current Complaint Chief Complaint: EDGeneral Hx Obtained From: Patient, Family/Record Producer - , Other: - Dr. Kapoor by phone Onset/Duration: Lasting Days - fever Timing: Constant Severity Currently: Moderate - left breast pain Severity Initially: Moderate Location: Pain At: - left breast Character: Dull Aggravating Factor(s): nothing Alleviating Factor(s): nothing Associated Signs And Symptoms: Positive: Weakness, Cough, Fever - 101.3 on , Other - fatigue. Negative: SOB, Chest Pain Related History: Recent Hospitalization - left breast surg 12/12/18 - Allergies/Home Medications Allergies/Adverse Reactions: Allergies Allergy/AdvReac Type Severity Reaction Status Date / Time sitagliptin [From Januvia] Allergy Severe See Comment Verified 01/03/19 15:30 Penicillins Allergy Unknown Swelling Verified 01/03/19 15:30 pregabalin [From Lyrica] Allergy Unknown Unknown Verified 01/03/19 15:30 Reaction Details tomato AdvReac GI Upset Verified 01/03/19 15:[address]AST Allergy SEVERE GI Uncoded 01/03/19 15:30 UPSET Home Medications: Home Medications Mupirocin 2% OINT* [Bactroban 2 % Oint*] 1 applic TOPICAL BID PRN 01/03/19 [ History Confirmed 01/03/19] Pravastatin (NF) [Pravachol (NF)] 40 mg PO DAILY 01/03/19 [History Confirmed ] Primidone TAB(*) [Mysoline TAB(*)] 300 mg PO BEDTIME 01/03/19 [History Confirmed 01/03/19] glipiZIDE TAB* [Glucotrol TAB*] 5 mg PO QAM 01/03/19 [History Confirmed 01/03/19 ] metFORMIN* [Glucophage 500 MG TAB *] 500 mg PO DAILY 01/03/19 [History Confirmed 01/03/19] PMH/Surg Hx/FS Hx/Imm Hx Previously Healthy: No Endocrine/Hematology History: Reports: Hx Diabetes - II on insulin , Hx Thyroid Disease - hypothyroid , Hx Anemia - Fe deficient Denies: Hx Sickle Cell Disease Cardiovascular History: Reports: Hx Angina, Hx Hypercholesterolemia, Hx Hypertension - on meds Denies: Hx Pacemaker/ICD, Other Cardiovascular Problems/Disorders Respiratory History: Denies: Other Respiratory Problems/Disorders GI History: Reports: Hx Gastroesophageal Reflux Disease, Other GI Disorders - umbilical hernia surgery History: Denies: Hx Dialysis, Hx Renal Disease Musculoskeletal History: Reports: Hx Arthritis - knees Denies: Hx Rheumatoid Arthritis, Hx Osteoporosis, Other Musculoskeletal History Sensory History: Reports: Hx Cataracts - bilat, Hx Contacts or Glasses - glasses , Hx Glaucoma - early stage Denies: Hx Deafness, Hx Hearing Aid Opthamlomology History: Reports: Hx Cataracts - bilat, Hx Contacts or Glasses - glasses, Hx Glaucoma - early stage Neurological History: Reports: Hx Nerve Disease - essential tremors Denies: Other Neuro Impairments/Disorders Psychiatric History: Reports: Hx Anxiety - on meds, Hx Depression - on meds Denies: Hx Panic Disorder - Cancer History Cancer Type, Location and Year: BREAST Hx Chemotherapy: No Hx Radiation Therapy: Yes - BREAST 2009 - Surgical History Surgical History: Yes Surgery Procedure, Year, and Place: HERNIA 2017 [facility] [place]. TUBAL LIGATION-1982; [facility]. HYSTERECTOMY-1998;[facility] [place]. LEFT BREAST LUMPECTOMY-2008, [facility] [place]. BILATERAL CATARACTS [facility] [place], 2018 Hx Anesthesia Reactions: No Infectious Disease History: Yes Infectious Disease History: Reports: Hx of Known/Suspected MRSA - from left breast wound Denies: Traveled Outside the [place] in Last 30 Days - Family History Known Family History: Positive: Other - Yes - Breast Cancer (Mother) - Social History Lives: With Family Alcohol Use: None Substance Use Type: Reports: None Hx Tobacco Use: No Smoking Status (MU): Never Smoked Tobacco Review of Systems Positive: Fever - 101.3 on 01/02/19, Fatigue Negative: Chest Pain Positive: Cough. Negative: Shortness Of Breath Gastrointestinal: Negative Positive: no symptoms reported Positive: Other - NEG- calf pain and leg pain Skin: Negative Positive: Weakness - generalized Psychological: Normal All Other Systems Reviewed And Are Negative: Yes Physical Exam - Summary Physical Exam Summary: Appearance: Ill-appearing, moderate pain distress, well-nourished Skin: Warm, color reflects adequate perfusion, dry, flushed, see breast exam for further skin findings, no petechiae Head: Normal Head/Face inspection, atraumatic Eyes: Conjunctiva clear ENT: Normal inspection Neck: Supple, no nodes, no JVD Breasts: left breast with healed surgical scar across entire left breast with redness and induration and tenderness, puncture site left lateral breast with minimal drainage (cultured) without surrounding redness, no drain present Respiratory: Lungs clear, normal breath sounds, no respiratory distress Cardio: RRR, No murmur, pulses normal, brisk capillary refill Abdomen: Soft, nontender Bowel sounds: Present Musculoskeletal: Strength Intact/ROM intact, no calf tenderness, no edema. Psychological: Normal Neuro: Alert, muscle tone normal, no focal deficit Triage Information Reviewed: Yes Vital Signs On Initial Exam: Initial Vitals Temp Pulse Resp BP Pulse Ox 98.0 F 70 16 133/65 100 01/03/19 15:27 01/03/19 15:27 01/03/19 15:27 01/03/19 15:27 01/03/19 15:27 Vital Signs Reviewed: Yes Diagnostics - Vital Signs Vital Signs Temp Pulse Resp BP Pulse Ox 01/03/19 15:27 98.0 F 70 16 133/65 100 - Laboratory Lab Results: Lab Results 01/03/19 01/03/19 01/03/19 Range/Units 16:20 16:20 16:20 WBC 5.8 (3.5-10.8) 10^3/uL RBC 3.68 L (3.70-4.87) 10^6 /uL Hgb 11.6 L (12.0-16.0) g/dL Hct 34 L (35-47) % MCV 93 (80-97) fL MCH 32 H (27-31) pg MCHC 34 (31-36) g/dL RDW 14 (10-15) % Plt Count 258 (150-450) 10^3/uL MPV 6.6 L (7.4-10.4) fL Neut % (Auto) 55.1 % Lymph % (Auto) 33.4 % [place]ial[place] % (Auto) 7.7 % Eos % (Auto) 3.0 % Baso % (Auto) 0.8 % Absolute Neuts (auto) 3.2 (1.5-7.7) 10^3/ul Absolute Lymphs (auto) 1.9 (1.0-4.8) 10^3/ul Absolute Monos (auto) 0.4 (0-0.8) 10^3/ul Absolute Eos (auto) 0.2 (0-0.6) 10^3/ul Absolute Basos (auto) 0.0 (0-0.2) 10^3/ul Absolute Nucleated RBC 0.0 10^3/ul Nucleated RBC % 0.0 ESR Pending INR (Anticoag Therapy) 0.97 (0.82-1.09) APTT 36.4 (26.0-38.0) seconds Sodium 136 (135-145) mmol/L Potassium 4.5 (3.5-5.0) mmol/L Chloride 102 (101-111) mmol/L Carbon Dioxide 29 (22-32) mmol/L Anion Gap 5 (2-11) mmol/L BUN 18 (6-24) mg/dL Creatinine 0.77 (0.51-0.95) mg/dL Est GFR ( Amer) 89.4 (>60) Est GFR (Non-Af Amer) 73.9 (>60) BUN/Creatinine Ratio 23.4 H (8-20) Glucose 175 H (70-100) mg/dL Lactic Acid (0.5-2.0) mmol/L Calcium 9.0 (8.6-10.3) mg/dL Total Bilirubin 0.20 (0.2-1.0) mg/dL AST 19 (13-39) U/L ALT 19 (7-52) U/L Alkaline Phosphatase 84 (34-104) U/L Total Creatine Kinase 78 (10-223) U/L Troponin I 0.00 (<0.04) ng/mL C-Reactive Protein 26.70 H (<8.01) mg/L B-Natriuretic Peptide (<=100) pg/mL Total Protein 7.1 (6.4-8.9) g/dL Albumin 3.7 (3.2-5.2) g/dL Globulin 3.4 (2-4) g/dL Albumin/Globulin Ratio 1.1 (1-3) 01/03/19 01/03/19 Range/Units 16:20 16:20 WBC (3.5-10.8) 10^3/uL RBC (3.70-4.87) 10^6 /uL Hgb (12.0-16.0) g/dL Hct (35-47) % MCV (80-97) fL MCH (27-31) pg MCHC (31-36) g/dL RDW (10-15) % Plt Count (150-450) 10^3/uL MPV (7.4-10.4) fL Neut % (Auto) % Lymph % (Auto) % [place] % (Auto) % Eos % (Auto) % Baso % (Auto) % Absolute Neuts (auto) (1.5-7.7) 10^3/ul Absolute Lymphs (auto) (1.0-4.8) 10^3/ul Absolute Monos (auto) (0-0.8) 10^3/ul Absolute Eos (auto) (0-0.6) 10^3/ul Absolute Basos (auto) (0-0.2) 10^3/ul Absolute Nucleated RBC 10^3/ul Nucleated RBC % ESR INR (Anticoag Therapy) (0.82-1.09) APTT (26.0-38.0) seconds Sodium (135-145) mmol/L Potassium (3.5-5.0) mmol/L Chloride (101-111) mmol/L Carbon Dioxide (22-32) mmol/L Anion Gap (2-11) mmol/L BUN (6-24) mg/dL Creatinine (0.51-0.95) mg/dL Est GFR ( Amer) (>60) Est GFR (Non-Af Amer) (>60) BUN/Creatinine Ratio (8-20) Glucose (70-100) mg/dL Lactic Acid 1.1 (0.5-2.0) mmol/L Calcium (8.6-10.3) mg/dL Total Bilirubin (0.2-1.0) mg/dL AST (13-39) U/L ALT (7-52) U/L Alkaline Phosphatase (34-104) U/L Total Creatine Kinase (10-223) U/L Troponin I (<0.04) ng/mL C-Reactive Protein (<8.01) mg/L B-Natriuretic Peptide 58 (<=100) pg/mL Total Protein (6.4-8.9) g/dL Albumin (3.2-5.2) g/dL Globulin (2-4) g/dL Albumin/Globulin Ratio (1-3) Result Diagrams: 01/04/19 07:58 01/05/19 07:56 Lab Statement: Any lab studies that have been ordered have been reviewed, and results considered in the medical decision making process. - Radiology Chest Xray Radiology Interpretation Completed By: Radiologist Summary of Radiographic Findings: Chest Xray reveals, per radiologist, IMPRESSION: Stigmata of obstructive lung disease. No acute pulmonary or cardiac process evident. ED Physician has reviewed this report. - Ultrasound Breast US Ultrasound Interpretation Completed By: Radiologist Summary of Ultrasound Findings: Breast US reveals, per radiologist, IMPRESSION: Transverse oriented incision extends from 3-9 o'clock anteriorly. Severe diffuse skin thickening and parenchymal edema. Centered at the 6 clock position inferior to the level of the prior incision there is aloculated complex fluid collection measuring up to 10.2 x 2.4 x 8.7 cm highly suspicious for abscess given the clinical context despite absence of detectable surrounding hyperemia on Doppler. - EKG 1731 Cardiac Rate: NL - 63 EKG Rhythm: Sinus Rhythm ST Segment: Non-Specific - nl AVIVCT nl QTc no acute changes Ectopy: None EKG Comparison: No Significant Change - c/w 07/02/16 except now she does not have sinus bradycardia Summary of EKG Findings: SR nl AVIVCT nl QTc no acute changes, no significant change c/w prior 07/02/16. Re-Evaluation - Re-Evaluation First Eval Re-Evaluation Time: 17:40 Change: Improved Comment: Patient is resting in room and states that pain is bearable. At this time patient is advised that it is likely an abscess and that Dr. Dunaway will call Dr. Kapoor to update him. Complex Multi-Symp Course/Dx Course Of Treatment: This patient is a 73 year old F presenting to [facility] accompanied by her with a chief complaint of left breast pain since 01/01 and fever since 01/02/19. Dr. Kapoor had phoned ahead to advise that pt was coming and gave pt's hx of nonhealing wound since Apr 2018 on left breast, after initial lumpectomy and radiation in 2008. At 1744 [address] Dunaway spoke to Dr. Kapoor who agrees that patient should be admitted to the hospital and placed on antibiotics. Patient NPO after midnight and Dr. Kapoor will arrange to have abscess evaluated and drained. Chest Xray reveals, per radiologist, IMPRESSION: Stigmata of obstructive lung disease. No acute pulmonary or cardiac process evident. ED Physician has reviewed this report. Breast US reveals, per radiologist, IMPRESSION: Transverse oriented incision extends from 3-9 o'clock anteriorly. Severe diffuse skin thickening and parenchymal edema. Centered at the 6 clock position inferior to the level of the prior incision there is aloculated complex fluid collection measuring up to 10.2 x 2.4 x 8.7 cm highly suspicious for abscess given the clinical context despite absence of detectable surrounding hyperemia on Doppler. Test results without significant abnormalities except for Hgb 11.6, Hct 34 consistent with her prior hx anemia, BUN/Creatinine Ratio 23.4 c/w mild dehydration with fever, Glucose 175 c/w infection in Type II DM, C-Reactive Protein 26.70 and ESR 71 c/w infection. Pt' s wbc count was 5.8 (normal) Wound culture of the left breast drain site was taken, and BC x 2 were drawn before antibiotics. Pt remained afebrile in the ED. Pt did not meet SIRS criteria in the ED, but orders were initiated in the sepsis pathway, with pt's hx of fever and known source of infection. In the ED course the patient was given Vancomycin 1g IV. Patient will be admitted to the hospitalist, with Dr. Kapoor and ID consulting, and the patient and her are agreeable with this plan. - Diagnoses Provider Diagnoses: Cancer of left breast, Abscess of left breast, History of MRSA infection Is Visit Related: No - Physician Notifications Discussed Care Of Patient With: Oralia Chinchilla - Hospitalist Time Discussed With Above Provider: 17:55 Instructed by Provider To: Admit As Inpatient - accepts for admission Discharge ED - Sign-Out/Discharge Documenting (check all that apply): Patient Departure - admitted All imaging exams completed and their final reports reviewed: Yes Patient Received Moderate/Deep Sedation with Procedure: No - Discharge Plan Condition: Stable Disposition: ADMITTED TO [facility] - Billing Disposition and Condition Condition: STABLE Disposition: Admitted to [facility] - Attestation Statements Document Initiated by Liset: Yes Documenting Scribe: Erika Ibrahim Provider For Whom Karolibe is Documenting (Include Credential): Dr. Greer Dunaway MD Scribe Attestation: Erika Gonzales scribed for Dr. Greer Dunaway MD on 01/29/19 at 1645. Scribe Documentation Reviewed: Yes Provider Attestation: The documentation as recorded by the Erika zaidi accurately reflects the service I personally performed and the decisions made by me, Dr. Greer Dunaway MD Status of Scribe Document: Viewed
[2019-01-03] MEDS ORDERED: Vancomycin(*) 1,000 MG in NS 0.9% 250 ML* 250 ML IVPB ONE (17:56)
[2019-01-03] MEDS ORDERED: Vancomycin per Pharmacy* NOTE FOLLOW UP SCH ×2 (18:00→20:00)
[2019-01-03] MEDS: NS 0.9% 1000 ML** 1,000 ML IV.FLUID IV ONE ×2 (18:01→20:35)
[2019-01-03 19:05] LABS: Urine Appearance Clear; Urine Bilirubin Negative (Negative); Urine Blood Negative (Negative); Urine Color Yellow; Urine Glucose 1+(50 mg/dL) (Negative); Urine Ketones Negative (Negative); Urine Nitrite Negative (Negative); Urine Protein Negative (Negative); Urine Specific Gravity 1.009 (1.010-1.030); Urine Urobilinogen Negative (Negative)
[2019-01-03 19:23] LABS: Erythrocyte Sed Rate 71 mm/Hr (0-29)
[2019-01-03] MEDS ORDERED: Dextrose 50% VIAL 50 ml IV PUSH PRN (19:58)
[2019-01-03] MEDS ORDERED: Vancomycin(*) 500 MG in NS 0.9% 250 ML* 250 ML IVPB ONE (20:30)
[2019-01-03] MEDS ORDERED: Primidone TAB(*) 50 MG PO SCH (22:00)
[2019-01-03] MEDS: Acetaminophen TAB* 325 MG PO PRN (22:59)
--- NOTE | 2019-01-03 23:39 | HP ---
CC: Dr. Kapoor; Dr. Kulkarni * HISTORY AND PHYSICAL: DATE OF ADMISSION: 01/03/19 PROVIDER: Ryan Garcia NP PRIMARY CARE PROVIDER: Dr. Kulkarni. ATTENDING PHYSICIAN WHILE IN THE HOSPITAL: Dr. Wilda Maldonado * (dictated by Ryan Garcia NP) CHIEF COMPLAINT: Left breast pain. HISTORY OF PRESENT ILLNESS: Ms. Stovall is a 73-year-old female with a past medical history significant for left breast cancer, status post lumpectomy , radiation; type 2 diabetes; hyperlipidemia; iron deficiency anemia; hypothyroidism; essential tremor; GERD; history of MRSA and left breast wound, who presented to the emergency room with complaints of left breast pain. The patient does report she was seen by her surgeon and evaluated on Tuesday. She said shortly after that she developed fevers, weakness, increased pain, and swelling to the left breast. She does report that she recently had surgery on 12/12/18 and they recently removed a drain last Tuesday. The patient states that during this time, she has been on Bactrim. She finished oral Bactrim yesterday and then yesterday developed a fever at home of 101. Due to her continued general malaise, decreased appetite, and increased pain in the left breast since Tuesday, the patient presented for further evaluation. While in the emergency room, the patient had routine lab work drawn. She had an ultrasound of the left breast, which showed high suspicion for abscess. Due to these findings, Hospital Medicine was asked to see and evaluate the patient for admission. PAST MEDICAL HISTORY: Significant for: 1. Breast cancer, status post lumpectomy in 2008 with radiation. 2. Type 2 diabetes. 3. Hyperlipidemia. 4. Iron deficiency anemia. 5. Hypothyroid. 6. Essential tremor. 7. GERD. 8. History of MRSA and left breast wound. PAST SURGICAL HISTORY: Left breast surgery, hysterectomy. HOME MEDICATIONS: Include: 1. Vitamin D 2000 units p.o. q.a.m. 2. Bactroban topically b.i.d. 3. PreserVision 1 tab q.p.m. 4. Primidone 300 mg at bedtime. 5. Pravastatin 40 mg p.o. daily. 6. Metformin 500 mg p.o. daily. 7. Zofran 4 mg p.o. q.8 hours as needed. 8. Lisinopril 5 mg p.o. daily. 9. Levothyroxine 50 mcg p.o. daily. 10. Lantus 20 units subcu at bedtime. 11. Glipizide 5 mg p.o. q.a.m. 12. Furosemide 40 mg p.o. daily p.r.n. 13. Fluoxetine 40 mg p.o. q.a.m. 14. Cyclobenzaprine 5 to 10 mg p.o. at bedtime p.r.n. muscle spasm. ALLERGIES: To PENICILLIN, JANUVIA, LYRICA, ORANGE FLAVORED ORAL CONTRAST. FAMILY HISTORY: Father with a history of diabetes, no reported history of cancer or coronary artery disease. SOCIAL HISTORY: The patient denies any tobacco, alcohol, or illicit drug use. She is . Surrogate decision maker in the event she is unable to take her own decisions is her . She is a full code. REVIEW OF SYSTEMS: She does report fevers and decreased appetite and nausea. She does report cough x2 to 3 days. Denies any hemoptysis or shortness of breath. No vomiting, diarrhea, or abdominal pain. Denies any hematuria, dysuria, focal weakness, or sensory loss. Denies any visual complaints, dysphagia, arthralgias, or myalgias. She does complain of swelling and tenderness to the left breast. Denies any psychosis or anxiety. PHYSICAL EXAMINATION GENERAL: At this time, Ms. Stovall is alert and oriented. She is resting on a stretcher in the emergency room. She is in no acute distress. VITAL SIGNS: Temperature 98.0, blood pressure 146/63, heart rate 63, respirations 14, O2 saturation 99% on room air. HEENT: Head is atraumatic, normocephalic. Eyes: EOMs are intact. Sclerae anicteric and not pale. Oral mucosa appeared to be moist. NECK: Supple. LUNGS: Clear to auscultation bilaterally. No wheezes, rales, or rhonchi. LEFT BREAST: Left breast with healing incision noted. Left breast is firm and warm to touch. There is no drainage. There is mild erythema noted to the base of the left breast. She does have a drain incision site without any surrounding erythema, mild drainage noted around the site that is purulent. CARDIAC: S1, S2. Regular rate and rhythm. No murmurs, rubs, or gallops. ABDOMEN: Soft and nontender. Bowel sounds are present x4. MUSCULOSKELETAL: She is able to move all 4 extremities with 5/5 strength. There is no clubbing or cyanosis. SKIN: Left breast with healing surgical incision, well approximated with no drainage. Mild erythema noted below the incision. Breast is firm to touch. Her was present during this exam. NEUROLOGIC: She is awake, alert, and oriented x3. Speech is clear. Thought process is intact. There are no gross focal deficits. LABORATORY DATA AND DIAGNOSTIC STUDIES: WBCs are 5.8, RBCs 3.68, hemoglobin 11.6, hematocrit at 34, platelet count is 258, ESR is 71, INR is 0.97, APTT was 36.4. Sodium 136, potassium 4.5, chloride 102, carbon dioxide is 29, anion gap was 5, BUN was 18, creatinine 0.77, glucose is 175, lactic acid was 1.1, calcium 9.0, ASTs were 19, ALTs were 19, alkaline phosphatase is 84, troponin is 0.00, C-reactive protein was 26.70, BNP was 58. Urine was within normal limits with exception of specific gravity is 1.009, urine glucose was 1+. She had a breast ultrasound, radiologist's impression: Transverse oriented incision extends from 3 to 9 o'clock anteriorly with severe diffuse skin thickening and parenchymal edema centered at 6 o'clock position inferior to the level of the prior incision. There is loculated fluid collection measuring up to 10.2 x 2.4 x 8.7 cm, highly suspicious for abscess given the clinical cancer despite the absence of detectable surrounding hyperemia on Doppler. She had a chest x-ray, radiologist's impression: Stigmata for obstructive lung disease. No acute pulmonary or cardiac process was evident. She had an electrocardiogram that showed sinus rhythm at a rate of 63. ASSESSMENT AND PLAN: Ms. Stovall is a 73-year-old female with past medical history significant for left breast cancer, diabetes type 2, hyperlipidemia, iron deficiency anemia, hypothyroidism, essential tremor, gastroesophageal reflux disease, and history of methicillin-resistant Staphylococcus aureus on the left breast wound, who presented to the emergency room with complaints of left breast tenderness and pain, found to have likely an abscess in the left breast and she will be admitted for: 1. Left breast abscess. The patient had an ultrasound of the left breast, which showed abscess. She does have mild erythema noted beneath her healing surgical scar. The patient does have a history of abscess in the left breast previously and was placed on vanco and Bactrim as an outpatient. The patient recently finished Bactrim yesterday. I will place her on vancomycin as per pharmacy protocol, blood cultures are currently pending. There is a wound culture from the drain site that is currently pending. I have spoken to Dr. Kapoor, who will see the patient in consultation tomorrow. We will need to contact Infectious Disease in the morning for consultation. Dr. Kapoor reported that he will contact Interventional Radiology for possible percutaneously draining the abscess in the left breast. The patient does have a history of methicillin- resistant Staphylococcus aureus on the left breast. 2. Diabetes type II. I will hold the patient metformin and glipizide. I will place her on Accu-Cheks a.c. and h.s. with lispro sliding scale. I am going to hold her Lantus this evening as the patient will be n.p.o. after midnight. 3. Hyperlipidemia. The patient should continue on pravastatin as previously prescribed. 4. Hypothyroidism. She should continue on levothyroxine 50 mcg p.o. daily. 5. Essential tremor. She should continue on primidone 300 mg p.o. at bedtime. 6. FEN. She can have a consistent carb diet. 7. Code status: She is a full code. 8. DVT prophylaxis. I will place her on SCDs as the patient may likely have surgery. TIME SPENT: Time spent on this admission was 60 minutes, greater than half that time was spent at the bedside reviewing events leading thus far to her hospitalization, performing physical exam, and reviewing my plan of care. I have discussed this my attending Dr. Wilda Maldonado; she is in agreement with my plan. RYAN GERARDO, MANAGER ONCOLOGY [id number]/[facility] #: [id number] MTDD
[2019-01-04] MEDS: NS 0.9% 1000 ML** 1,000 ML IV SCH ×2 (02:32→17:00)
[2019-01-04] MEDS: Levothyroxine TAB* 50 MCG TAB PO SCH (06:28)
[2019-01-04] MEDS: Insulin LISPRO* 1 UNITS UNIT SUBCUT SCH ×3 (07:38→16:59)
[2019-01-04] MEDS: Vancomycin(*) 1,250 MG in NS 0.9% 250 ML* 250 ML IVPB SCH ×2 (08:28→19:42)
[2019-01-04 08:29] LABS: ABS Eosinophils 0.2 10^3/ul (0-0.6); ABS Lymphocytes 1.5 10^3/ul (1.0-4.8); ABS Monocytes 0.4 10^3/ul (0-0.8); ABS Neutrophils 2.6 10^3/ul (1.5-7.7); Eosinophil % 4.2 %; Hematocrit 34 % (35-47); Hemoglobin 11.2 g/dL (12.0-16.0); Lymphocyte % 32.2 %; Mean Corpuscular HGB Conc 33 g/dL (31-36); Mean Corpuscular Hemoglobin 31 pg (27-31); Mean Corpuscular Volume 95 fL (80-97); Mean Platelet Volume 6.7 fL (7.4-10.4); Nucleated Red Blood Cells % 0.1; Platelet Count 225 10^3/uL (150-450); Red Blood Count 3.63 10^6 /uL (3.70-4.87); Red Cell Distribution Width 14 % (10-15); White Blood Count 4.7 10^3/uL (3.5-10.8)
[2019-01-04 08:39] LABS: BUN/Creatinine Ratio 16.7 (8-20); Calcium 8.2 mg/dL (8.6-10.3); EGFR African American 106.8 (>60); EGFR Non-African American 88.3 (>60); Potassium 4.1 mmol/L (3.5-5.0)
[2019-01-04] MEDS: FLUoxetine CAP* 20 MG PO SCH (09:04)
[2019-01-04] MEDS: Atorvastatin* 10 MG TAB PO SCH (09:04)
[2019-01-04] MEDS: Lisinopril TAB* 5 MG PO SCH (09:05)
--- NOTE | 2019-01-04 10:57 | CONS ---
PLASTIC SURGERY CONSULTATION: DATE OF CONSULT: 01/04/19 REASON FOR CONSULTATION: Left breast fluid collection. SUMMARY: The patient is a 73-year-old woman who is status post a left breast lumpectomy in 2008 followed by radiation therapy for left breast cancer. She initially healed well, but developed an infection approximately 1 year postoperatively. She underwent incision and drainage of an abscess followed by local wound care and then underwent surgical closure and the area subsequently remained healed for approximately 8 years. In April 2018, she developed a recurrent infection, and incision, drainage and debridement were performed. Cultures grew MRSA, Strep agalactiae, and Staphylococcus lugdunensis. The patient was treated initially with intravenous antibiotics and then switched to oral Bactrim. She developed a nonhealing wound despite treatment with VAC dressing as well as hyperbaric oxygen. I took her to the operating room on 06/27 and excised the nonhealing wound and reconstructed the defect with wide undermining advancement of the remaining breast skin and tissue and placement of a Salomon-Coughlin drain. A VAC Prevena Restor dressing was applied at that time. The patient was followed in the office. She received a single dose of intravenous vancomycin preoperatively and was placed on postoperative course of p.o. Bactrim. The patient initially did well postoperatively. The drain was eventually removed. She finished oral antibiotics 3 days ago. She presented to my office yesterday with complaints of malaise, feeling feverish, and dizzy. She took her oral temperature at home and it was 101.3. She also complained of increased pain in the lateral aspect of her left breast. She denied any shortness of breath, any leg swelling, or leg pain. On examination in the office, she was noted to be alert, but shaky. Temperature was 98.0, blood pressure was 150/85, heart rate was 80, respirations were 24. She was noted to have moderate erythema and induration in the lower pole of the left breast with moderate peau d'orange. The incision line was noted to be intact. She was tender in the lateral aspect of the left breast. She was sent to the emergency room and was evaluated by the emergency room staff. Workup included ultrasound which demonstrated a 10.2 x 2.4 x 8.7 loculated complex fluid collection at the 6 o'clock position inferior to the level of the incision line in the left breast, which was considered suspicious for abscess. Her white blood cell count was normal at 5.8, sed rate was elevated at 71, C-reactive protein was elevated at 26.7. On examination today, the patient reports that she is feeling much better. She has remained afebrile with stable vital signs since admission. The left breast is less tender, less erythematous, and less indurated. IMPRESSION: Fluid collection, left breast, possible infected seroma or abscess. RECOMMENDATIONS: I have spoken to Dr. Reyes this morning and the patient is being scheduled for ultrasound-guided aspiration of the fluid collection and possible placement of a drain. Fluid will be sent for cultures and Gram stain. In the meantime, I agree with intravenous Vancomycin and I will follow with you. [id number]/[facility] #: [id number] MTDMaria Elena
[2019-01-04] MEDS: Acetaminophen TAB* 325 MG PO PRN ×2 (14:03→20:45)
--- NOTE | 2019-01-04 16:29 | PN ---
Subjective Date of Service: 01/04/19 Interval History: Patient feels very cold, is covered with blankets. She is not sure if she has a fever. No major pain in LT breast. Family History: Unchanged from Admission Social History: Unchanged from Admission Past Medical History: Unchanged from Admission Objective Active Medications: Acetaminophen (Tylenol Tab*) 650 mg PO Q4H PRN PRN Reason: PAIN - MILD Last Admin: 01/04/19 14:03 Dose: 650 mg Atorvastatin Calcium (Lipitor*) 10 mg PO DAILY [facility]; Protocol Last Admin: 01/04/19 09:04 Dose: Not Given Dextrose (Dextrose 50% Vial 50 Ml*) 25 ml IV PUSH .FOR FS < 60 - SS PRN PRN Reason: FS < 60 Fluoxetine HCl (Prozac Cap*) 40 mg PO QAM [facility] Last Admin: 01/04/19 09:04 Dose: Not Given Sodium Chloride (Ns 0.9% 1000 Ml) 1,000 mls @ 75 mls/hr IV PER RATE [facility] Last Admin: 01/04/19 02:32 Dose: 75 mls/hr Vancomycin HCl 1,250 mg/ (Sodium Chloride) 250 mls @ 166.667 mls/hr IVPB Q12H [facility] Last Admin: 01/04/19 08:28 Dose: 166.667 mls/hr Insulin Human Lispro (Humalog*) 0 units SUBCUT AC [facility]; Protocol Last Admin: 01/04/19 13:42 Dose: Not Given Levothyroxine Sodium (Synthroid Tab*) 50 mcg PO QAM@0600 [facility] Last Admin: 01/04/19 06:28 Dose: Not Given Lisinopril (Prinivil Tab*) 5 mg PO QAM [facility] Last Admin: 01/04/19 09:05 Dose: Not Given Primidone (Mysoline Tab(*)) 300 mg PO BEDTIME [facility] Vital Signs - 8 hr 01/04/19 01/04/19 01/04/19 11:00 13:58 14:14 Temperature 35.5 C 35.7 C 36.2 C Pulse Rate 61 55 60 Respiratory 17 16 15 Rate Blood Pressure 110/65 153/61 (mmHg) O2 Sat by Pulse 100 100 100 Oximetry 01/04/19 01/04/19 14:37 15:26 Temperature 36.3 C 36.7 C Pulse Rate 63 66 Respiratory 14 16 Rate Blood Pressure 148/73 144/62 (mmHg) O2 Sat by Pulse 99 97 Oximetry Oxygen Devices in Use Now: None Appearance: alert, no distress Eyes: No Scleral Icterus Neck: No Thyroid Enlargement, Masses Respiratory: Symmetrical Chest Expansion and Respiratory Effort, Clear to Auscultation Cardiovascular: NL Sounds; No Murmurs; No JVD, RRR Skin: - - wound LT breast inferior to healed incision clean/dry covered w/ 2x2 Neurological: Alert and Oriented x 3 Lines/Tubes/Other Access: Clean, Dry and Intact Peripheral IV Nutrition: Taking PO's Result Diagrams: 01/04/19 07:58 01/04/19 07:58 Microbiology and Other Data: Microbiology 01/04/19 13:30 Breast Left Gram Stain - Final 01/03/19 17:38 Breast Left Gram Stain - Final 01/03/19 17:38 Breast Left Wound Culture - Preliminary No Growth Day 1 Assess/Plan/Problems-Billing Assessment: 73 year old woman w/ history of L-sided breast cancer in 2008, recurrent breast infections (MRSA) with excision of non-healing wound in early Dec, here with possible infected seroma vs abscess LT breast - Patient Problems (1) Abscess of breast, left Current Visit: No Status: Acute Priority: High Code(s): N61.1 - ABSCESS OF THE BREAST AND NIPPLE SNOMED Code(s): 75049271 Comment: -Recurrent infection/abscess s/p I&D in April, June 14, and Dec 12, with MSSA then MRSA -Awaiting cultures from needle aspiration X2 today -Will consult with ID (2) Diabetes type 2, uncontrolled Current Visit: Yes Status: Acute Priority: Medium Code(s): E11.65 - TYPE 2 DIABETES MELLITUS WITH HYPERGLYCEMIA SNOMED Code(s): 052206277 Comment: -Will recheck A1c, was >9 six months ago -Fingersticks in excellent range (3) DVT prophylaxis Current Visit: No Status: Acute Priority: Low Code(s): DIG8371 - SNOMED Code(s): 219117664 Comment: -SCDs Status and Disposition: inpatient, possible discharge tomorrow
[2019-01-04] MEDS ORDERED: Primidone TAB(*) 50 MG PO ONE (21:00)
[2019-01-04] MEDS ORDERED: Primidone TAB(*) 250 MG PO ONE (21:00)
[2019-01-05] MEDS: Acetaminophen TAB* 325 MG PO PRN (02:59)
[2019-01-05] MEDS: Levothyroxine TAB* 50 MCG TAB PO SCH (06:04)
[2019-01-05] MEDS ORDERED: Vancomycin Trough Check NOTE FOLLOW UP ONE (07:30)
--- NOTE | 2019-01-05 07:55 | PN ---
Progress Note - Progress Note Date of Service: 01/05/19 SOAP: Subjective: Feeling much improved. gum rolling machine tender lateral left breast. Objective: Alert, NAD Afebrile, VSS Left breast much softer, minimal erythema, incision intact. Gram stain from aspiration of left breast collection showed no organisms seen, and only 40 cc of fluid obtained upon evacuation of collection. Assessment: Improved on IV Vanco Suspect cellulitis, doubt deep space infection or abscess given findings from aspiration. Plan: Continue IV Vanco. Await results of cultures. Await input from infectious disease service.
[2019-01-05 08:29] LABS: EGFR African American 101.5 (>60); EGFR Non-African American 83.9 (>60); Vancomycin Trough 14.2 mcg/mL
[2019-01-05] MEDS: Insulin LISPRO* 1 UNITS UNIT SUBCUT SCH ×2 (08:29→13:33)
[2019-01-05] MEDS: Atorvastatin* 10 MG TAB PO SCH (08:52)
[2019-01-05] MEDS: FLUoxetine CAP* 20 MG PO SCH (08:52)
[2019-01-05] MEDS: Vancomycin(*) 1,250 MG in NS 0.9% 250 ML* 250 ML IVPB SCH (08:52)
[2019-01-05] MEDS: Lisinopril TAB* 5 MG PO SCH (08:52)
--- NOTE | 2019-01-05 14:14 | PN ---
Subjective Date of Service: 01/05/19 Family History: Unchanged from Admission Social History: Unchanged from Admission Past Medical History: Unchanged from Admission Objective Active Medications: Acetaminophen (Tylenol Tab*) 650 mg PO Q4H PRN PRN Reason: PAIN - MILD Last Admin: 01/05/19 02:59 Dose: 650 mg Atorvastatin Calcium (Lipitor*) 10 mg PO DAILY [facility]; Protocol Last Admin: 01/05/19 08:52 Dose: 10 mg Dextrose (Dextrose 50% Vial 50 Ml*) 25 ml IV PUSH .FOR FS < 60 - SS PRN PRN Reason: FS < 60 Fluoxetine HCl (Prozac Cap*) 40 mg PO QAM [facility] Last Admin: 01/05/19 08:52 Dose: 40 mg Sodium Chloride (Ns 0.9% 1000 Ml) 1,000 mls @ 75 mls/hr IV PER RATE [facility] Last Admin: 01/04/19 17:00 Dose: 75 mls/hr Vancomycin HCl 1,250 mg/ (Sodium Chloride) 250 mls @ 166.667 mls/hr IVPB Q12H [facility] Last Admin: 01/05/19 08:52 Dose: 166.667 mls/hr Insulin Human Lispro (Humalog*) 0 units SUBCUT AC [facility]; Protocol Last Admin: 01/05/19 13:33 Dose: 3 units Levothyroxine Sodium (Synthroid Tab*) 50 mcg PO QAM@0600 [facility] Last Admin: 01/05/19 06:04 Dose: 50 mcg Lisinopril (Prinivil Tab*) 5 mg PO QAM [facility] Last Admin: 01/05/19 08:52 Dose: 5 mg Pharmacy Consult (Vancomycin Per Pharmacy*) 1 note FOLLOW UP .VANC PER PHARMACY [facility]; Protocol Pharmacy Profile Note (Vancomycin Trough Check) 1 note FOLLOW UP 0730 ONE Stop: 01/07/19 07:31 Primidone (Mysoline Tab(*)) 250 mg PO BEDTIME [facility] Primidone (Mysoline Tab(*)) 50 mg PO BEDTIME [facility] Vital Signs - 8 hr 01/05/19 01/05/19 01/05/19 07:38 07:49 11:10 Temperature 97.2 F 97.6 F Pulse Rate 60 61 Respiratory 16 17 15 Rate Blood Pressure 119/57 121/71 (mmHg) O2 Sat by Pulse 99 97 Oximetry Oxygen Devices in Use Now: None Result Diagrams: 01/04/19 07:58 01/05/19 07:56 Additional Lab and Data: Lab Results 01/03/19 01/03/19 01/03/19 Range/Units 16:20 16:20 16:20 WBC 5.8 (3.5-10.8) 10^3/uL RBC 3.68 L (3.70-4.87) 10^6 /uL Hgb 11.6 L (12.0-16.0) g/dL Hct 34 L (35-47) % MCV 93 (80-97) fL MCH 32 H (27-31) pg MCHC 34 (31-36) g/dL RDW 14 (10-15) % Plt Count 258 (150-450) 10^3/uL MPV 6.6 L (7.4-10.4) fL Neut % (Auto) 55.1 % Lymph % (Auto) 33.4 % [place] % (Auto) 7.7 % Eos % (Auto) 3.0 % Baso % (Auto) 0.8 % Absolute Neuts (auto) 3.2 (1.5-7.7) 10^3/ul Absolute Lymphs (auto) 1.9 (1.0-4.8) 10^3/ul Absolute Monos (auto) 0.4 (0-0.8) 10^3/ul Absolute Eos (auto) 0.2 (0-0.6) 10^3/ul Absolute Basos (auto) 0.0 (0-0.2) 10^3/ul Absolute Nucleated RBC 0.0 10^3/ul Nucleated RBC % 0.0 ESR Pending INR (Anticoag Therapy) 0.97 (0.82-1.09) APTT 36.4 (26.0-38.0) seconds Sodium 136 (135-145) mmol/L Potassium 4.5 (3.5-5.0) mmol/L Chloride 102 (101-111) mmol/L Carbon Dioxide 29 (22-32) mmol/L Anion Gap 5 (2-11) mmol/L BUN 18 (6-24) mg/dL Creatinine 0.77 (0.51-0.95) mg/dL Est GFR ( Amer) 89.4 (>60) Est GFR (Non-Af Amer) 73.9 (>60) BUN/Creatinine Ratio 23.4 H (8-20) Glucose 175 H (70-100) mg/dL Lactic Acid (0.5-2.0) mmol/L Calcium 9.0 (8.6-10.3) mg/dL Total Bilirubin 0.20 (0.2-1.0) mg/dL AST 19 (13-39) U/L ALT 19 (7-52) U/L Alkaline Phosphatase 84 (34-104) U/L Total Creatine Kinase 78 (10-223) U/L Troponin I 0.00 (<0.04) ng/mL C-Reactive Protein 26.70 H (<8.01) mg/L B-Natriuretic Peptide (<=100) pg/mL Total Protein 7.1 (6.4-8.9) g/dL Albumin 3.7 (3.2-5.2) g/dL Globulin 3.4 (2-4) g/dL Albumin/Globulin Ratio 1.1 (1-3) 01/03/19 01/03/19 Range/Units 16:20 16:20 WBC (3.5-10.8) 10^3/uL RBC (3.70-4.87) 10^6 /uL Hgb (12.0-16.0) g/dL Hct (35-47) % MCV (80-97) fL MCH (27-31) pg MCHC (31-36) g/dL RDW (10-15) % Plt Count (150-450) 10^3/uL MPV (7.4-10.4) fL Neut % (Auto) % Lymph % (Auto) % [place] % (Auto) % Eos % (Auto) % Baso % (Auto) % Absolute Neuts (auto) (1.5-7.7) 10^3/ul Absolute Lymphs (auto) (1.0-4.8) 10^3/ul Absolute Monos (auto) (0-0.8) 10^3/ul Absolute Eos (auto) (0-0.6) 10^3/ul Absolute Basos (auto) (0-0.2) 10^3/ul Absolute Nucleated RBC 10^3/ul Nucleated RBC % ESR INR (Anticoag Therapy) (0.82-1.09) APTT (26.0-38.0) seconds Sodium (135-145) mmol/L Potassium (3.5-5.0) mmol/L Chloride (101-111) mmol/L Carbon Dioxide (22-32) mmol/L Anion Gap (2-11) mmol/L BUN (6-24) mg/dL Creatinine (0.51-0.95) mg/dL Est GFR ( Amer) (>60) Est GFR (Non-Af Amer) (>60) BUN/Creatinine Ratio (8-20) Glucose (70-100) mg/dL Lactic Acid 1.1 (0.5-2.0) mmol/L Calcium (8.6-10.3) mg/dL Total Bilirubin (0.2-1.0) mg/dL AST (13-39) U/L ALT (7-52) U/L Alkaline Phosphatase (34-104) U/L Total Creatine Kinase (10-223) U/L Troponin I (<0.04) ng/mL C-Reactive Protein (<8.01) mg/L B-Natriuretic Peptide 58 (<=100) pg/mL Total Protein (6.4-8.9) g/dL Albumin (3.2-5.2) g/dL Globulin (2-4) g/dL Albumin/Globulin Ratio (1-3) Microbiology and Other Data: Microbiology 01/04/19 13:30 Breast Left Gram Stain - Final 01/03/19 17:38 Breast Left Gram Stain - Final 01/03/19 17:38 Breast Left Wound Culture - Preliminary No Growth Day 1 Assess/Plan/Problems-Billing Assessment: 73 year old woman w/ history of L-sided breast cancer in 2008, recurrent breast infections (MRSA) with excision of non-healing wound in early Dec, here with possible infected seroma vs abscess LT breast Status and Disposition: inpatient, possible discharge tomorrow
--- NOTE | 2019-01-05 14:51 | CONS ---
CONSULTATION REPORT: DATE OF CONSULT: 01/05/19 PRIMARY CARE PROVIDER: Dr. Mariusz Kulkarni. PROVIDER REQUESTING CONSULTATION: Dr. Vic Rachel. CONSULTING SERVICE: Infectious Disease. PROVIDER: Emma Kothari NP. ATTENDING PROVIDER: Dr. Chato Hurley * (dictated by Emma Kothari NP). REASON FOR CONSULT: Left breast infection. IMPRESSION: 1. Left breast cellulitis. The erythema has resolved, I do not see any erythema on exam today. She has been afebrile in the hospital. Gram stain from the left breast aspiration with no growth to date. Blood cultures with no growth to date. In the past, the patient had grown methicillin-sensitive Staphylococcus aureus, group B Staphylococcus lugdunensis and in the past, she had been treated on a course of Bactrim outpatient, improving on vancomycin inpatient. 2. Diabetes mellitus type 2. PLAN/RECOMMENDATIONS: Recommending, as long as Dr. Kapoor agrees, transitioning the patient from IV vancomycin to a course of oral Bactrim or Doxycycline to complete a 14-day course of antibiotics. The patient should follow with Dr. Hurley in the ID office in the next 1 to 2 weeks. HISTORY OF PRESENT ILLNESS: Ms. Stovall is a 73-year-old female with past medical history significant for left breast cancer, status post lumpectomy and radiation, diabetes mellitus type 2, hyperlipidemia, iron-deficiency anemia, hypothyroidism, essential tremor, GERD, history of left breast infection with MRSA, who has had a long course of a nonhealing wound to the left breast. The patient underwent a left breast lumpectomy and developed an abscess approximately 9 years ago, which had been doing fine until April of this year when she developed a new abscess. This abscess grew group B strep and methicillin-sensitive Staph aureus. She had a wide excision showing benign breast tissue with chronic inflammation and suture material and had ongoing drainage from the site. She was seen by Infectious Disease, and at that time in June 2018, was admitted to the hospital for mastitis without abscess. At that point, the patient's wound was growing methicillin- resistant Staph aureus , group B strep, and Staph lugdunensis and had a wound VAC. The suture material that had been previously retained had been removed. She was continued on a course of Bactrim at that time. The patient last followed up with Infectious Disease in July. She had no signs of infection at that time and was asked to call the office if she again developed any issues. According to the patient, she continued to follow with the wound clinic for wound care. The wound clinic did a wider debridement of the wound feeling that this would help the wound close. She underwent 35 days of hyperbaric treatment status post debridement. When the wound continued to not heal despite the wound VAC and hyperbaric oxygen treatment, she was referred to Dr. Kapoor. She was taken to the operating room on 12/12/18 for excision of a nonhealing wound and reconstruction of the defect and placement of a PARTHA drain. The patient states that she was doing well and had followed with Dr. Kapoor in the office and had been placed on a postoperative course of Bactrim. The drain was removed outpatient and she had finished a course of antibiotics. She was seen in Dr. Kapoor's office again for a followup with complaints of malaise, feeling feverish, and dizzy, and reported that her temperature was 101.3 at home. She was also having increased pain in the left breast, had tenderness to her breast. She was referred to the emergency room for further evaluation. While in the emergency room, she had an ultrasound of the left breast showing severe diffuse skin thickening and parenchymal edema. There was also a loculated complex fluid collection measuring up to 10.2 x 2.4 x 8.7 cm, highly suspicious for abscess. She had no leukocytosis. Her ESR was elevated at 71. CRP 26.70. Afebrile while in the emergency room. She was referred to the hospitalist service for admission. While in the hospital, she underwent an ultrasound-guided aspiration of the fluid collection and was started on IV vancomycin. The aspirate from the left breast showed 3+ nucleated cells, 1+ neutrophils, and no organisms. She has remained afebrile while in the hospital. The blood cultures with no growth. The pain in her left breast has been improving on the course of vancomycin. The patient states that she did have mild erythema of the breast that has now resolved. She denies any current fevers, chills, shortness of breath, joint pain, muscle pain, diarrhea, urinary symptoms such as frequency or dysuria. She does endorse some urinary urgency recently, constipation. She denies any recent travel. PAST MEDICAL HISTORY: 1. Left breast cancer, status post lumpectomy and radiation in 2008. 2. Diabetes mellitus type 2. 3. Hyperlipidemia. 4. Iron-deficiency anemia. 5. Hypothyroidism. 6. Essential tremor. 7. GERD. PAST SURGICAL HISTORY: 1. Status post left breast lumpectomy. 2. Status post hysterectomy. 3. Status post excision of nonhealing wound to the left breast, reconstruction with local flaps, application of VAC, PREVENA RESTOR on 12/12/18. MEDICATIONS: Home Medications: 1. Vitamin D 2000 units by mouth daily. 2. Bactroban 2% apply topical twice daily as needed for wound care. 3. PreserVision AREDS 1 tablet by mouth daily. 4. Primidone 300 mg by mouth daily. 5. Pravastatin 40 mg by mouth daily. 6. Metformin 500 mg by mouth daily. 7. Zofran 4 mg by mouth every 8 hours as needed for nausea. 8. Lisinopril 5 mg by mouth daily. 9. Levothyroxine 50 mcg by mouth daily. 10. Lantus insulin 20 units subcutaneous at bedtime. 11. Glipizide 5 mg by mouth daily. 12. Furosemide 40 mg by mouth daily as needed for swelling. 13. Fluoxetine 40 mg by mouth daily. 14. Flexeril 5 to 10 mg by mouth daily at bedtime as needed for muscle spasms. Hospital Medications: 1. Acetaminophen 650 mg by mouth every 4 hours as needed for pain. 2. Atorvastatin 10 mg by mouth daily. 3. Dextrose 25 mL IV push as needed for glucose less than 60. 4. Fluoxetine 40 mg by mouth daily. 5. Humalog insulin sliding scale subcutaneous with meals. 6. Levothyroxine 50 mcg by mouth daily. 7. Lisinopril 5 mg by mouth daily. 8. Primidone 300 mg by mouth daily at bedtime. 9. Saline 75 mL an hour intravenously. 10. Vancomycin 250 mg IV every 12 hours. ALLERGIES: JANUVIA, LYRICA, TOMATO, CT CONTRAST cause GI upset. PENICILLIN cause rash and swelling. FAMILY HISTORY: The patient denies any family history of recurrent resistant infections. No family history of CAD. Father with a history of diabetes mellitus, prostate and colon cancer. Mother with a history of breast cancer. Brother with a history of prostate cancer and multiple sclerosis. SOCIAL HISTORY: She denies alcohol, tobacco, or recreational drug use. REVIEW OF SYSTEMS: I performed a 10-point review of systems, all the pertinent positives and negatives are mentioned in the history of present illness. Remaining review of systems are negative. PHYSICAL EXAMINATION: Vital Signs: Temperature 97.2, heart rate 60, respiratory rate 17, O2 sat 99% on room air, blood pressure 119/57. General Appearance: The patient is alert, appears to be in no acute distress, sitting up in bed. Head: Normocephalic, atraumatic. ENT: Extraocular movements are intact. Moist mucous membranes. Neck: Supple. No lymphadenopathy. Neurological: Alert and oriented. Cranial nerves II through XII are grossly intact. Cardiovascular: Regular rate and rhythm. No murmurs, rubs, or gallops. Respiratory: Lungs are clear to auscultation bilaterally. No accessory muscle use. Abdomen: Bowel sounds present. Abdomen enlarged, soft, nontender, nondistended. Extremities: No lower extremity edema. Musculoskeletal: No clubbing or cyanosis noted. Exhibits good strength in all extremities. Psychological: Calm and cooperative. Skin: There are no rashes or abnormalities seen. The patient has a well-healed incision from 6 o'clock to 3 o'clock across her left breast. There is no erythema. There is induration below the incision across the breast. No fluctuance. DIAGNOSTIC STUDIES/LABORATORY DATA: From 01/04/19: Sodium 141, potassium 4.1, chloride 112, CO2 25, BUN 11, creatinine 0.66, glucose 111. White blood cell count 4.9, hemoglobin 11.2, hematocrit 34, platelet count 225. ESR from is 71 and CRP 26.70. Please see impression and recommendations outlined above, recommendations have been discussed with Radhika Gonzales NP. Thank you for asking us to see Ms. Stovall in consultation. The case has been discussed with my attending Dr. Chato Hurley, who agrees with the plan of care. Reviewed by ONEL DUPONT 01/06/19 1825 [id number]/[facility] #: [id number] MTDD
[2019-01-05 16:23] VITALS: BP 132/67
[2019-01-05] MEDS ORDERED: Primidone TAB(*) 250 MG PO SCH (21:00)
[2019-01-05] MEDS ORDERED: Primidone TAB(*) 50 MG PO SCH ×2 (21:00)
--- NOTE | 2019-01-06 01:14 | DS ---
CC: Dr. Kulkarni * DISCHARGE SUMMARY: DATE OF ADMISSION: 01/03/19 DATE OF DISCHARGE: 01/05/19 PROVIDER: Consuelo Soni NP ATTENDING PHYSICIAN: Dr. Vic Rachel * (dictated by Consuelo Soni NP). PRIMARY CARE PHYSICIAN: Dr. Mariusz Kulkarni. CONSULTING PROVIDER: Dr. Girma Kapoor, Plastic Surgery, Dr. Chato Hurley , Infectious Disease. PRIMARY DISCHARGE DIAGNOSIS: Left breast cellulitis with question of seroma. SECONDARY DISCHARGE DIAGNOSES: 1. Breast cancer, status post lumpectomy in 2008 with radiation. 2. Type 2 diabetes. 3. Hyperlipidemia. 4. Iron deficiency anemia. 5. Hypothyroidism. 6. Essential tremor. 7. Gastroesophageal reflux disease. 8. History of MRSA in left breast wound. HOME MEDICATIONS AT DISCHARGE: 1. Cholecalciferol 2000 units q.a.m. 2. Bactroban 1 application topical b.i.d. p.r.n. 3. PreserVision AREDS 1 tablet q.p.m. 4. Primidone 30 mg at bedtime. 5. Pravastatin 40 mg daily. 6. Metformin 500 mg daily. 7. Zofran ODT 4 mg every 8 hours p.r.n. 8. Lisinopril 5 mg q.a.m. 9. Levothyroxine 50 mcg q.a.m. 10. Lantus 20 units at bedtime subcutaneously. 11. Glipizide 5 mg q.a.m. 12. Furosemide 40 mg daily p.r.n. 13. Fluoxetine 40 mg q.a.m. 14. Cyclobenzaprine 5 to 10 mg p.o. at bedtime p.r.n. 15. Doxycycline 100 mg b.i.d. x14 days. This is a new medication with script sent to pharmacy. HOSPITAL COURSE OF STAY: For full details, please refer to the H and P provided by nurse practitioner, Bethany Garcia, on 01/03/19. In summary, this is a 73-year- old female with past medical history significant for left breast cancer and history of left breast wound with recurrent exacerbations. She presented to the ER with left breast pain. Prior to her presentation to the ER, she was seen by Dr. Kapoor on 12/12/18 and had surgery done, and they had recently removed the drain well over a week ago. She has been on Bactrim. She finished her oral Bactrim, but then developed fever at home of 101 and presented to the ER the following day with pain. She was admitted and placed on IV vanco. Dr. Kapoor and Dr. Hurley were consulted. Left breast ultrasound revealed a 10.2 x 2.4 x 8.7 loculated complex fluid collection at the 6 o'clock position to the level of the incision line in the left breast, which was considered suspicious for abscess. She underwent an ultrasound- guided aspiration of the fluid collection with possibility , although this was not needed. Prior to her discharge, she has no growth on her wound cultures and also no growth to the blood culture. She has voiced improvement in pain. Redness has improved. She was seen in consultation again on 01/05/[address] Kapoor, who noted that the left breast had become softer, had minimal erythema and the incision was intact. He recommended continuing antibiotic, but deferred final decision to ID. Per the ID recommendations, the patient can continue on Bactrim or doxycycline; it was determined that doxycycline would be the best option for the patient to be discharged on. She should continue on a 14-day course and should follow up with Dr. Hurley in the ID office in the next 1 to 2 weeks. She is also to follow up with Dr. Kapoor next week. She has been advised to call his office on Tuesday and to get an appointment for this coming 01/08/19, for reevaluation. At the time of discharge, Ms. Stovall reports feeling improved overall. She feels safe going home. She understands that she should continue with her antibiotics. She reports improvement in her symptoms. PHYSICAL EXAMINATION: General: This is a 73-year-old female seen lying in bed , in no acute distress. HEENT: Head is atraumatic and normocephalic. Extraocular movements are intact. Oral mucosa is moist. Neck is supple. No lymphadenopathy appreciated. Cardiac: Regular rate and rhythm. No murmurs, rubs, or gallops. Lungs are clear to auscultation bilaterally. Abdomen is soft , nontender, and nondistended with no active bowel sounds. Extremities without edema. No clubbing or cyanosis. Musculoskeletal: Active range of motion in all four extremities. Skin: There is a well-healed incision across the left breast. No erythema noted. There is mild tenderness with palpation. There is mild induration below the incision and across the breast. No fluctuance noted. No expressible drainage. Neurologic: She is alert and oriented x3. No focal deficits noted. FOLLOWUP NEEDS: Again, she is to follow up with Dr. Kapoor on Tuesday and with ID in the next 10 to 14 days. She should call for appointment and she has been notified of this. ACTIVITIES: As tolerated. DIET: Resume regular previous diet. CONDITION: Stable. DISPOSITION: To home. TIME SPENT: Time spent on the discharge is approximately 40 minutes. Again, this is only a brief summary of the patient's hospital course of stay. For full details, please refer to the full medical records. If you have any further questions or need further assistance, please feel free to contact me at [phone]. CONSUELO SONI NP [id number]/[facility] #: [id number] [facility]
[2019-01-07] MEDS ORDERED: Vancomycin Trough Check NOTE FOLLOW UP ONE (07:30)
== END 2019-01-05 16:45 | disposition home or self-care (01) | DRG 601 ==
LOC: ED 15:18 → SSU 20:03
PROVIDERS: ADMIT Hospitalist; ATTEND Internal Medicine
PROC: 0H9U3ZZ Drainage of Left Breast, Percutaneous Approach (ICD-10-PCS; principal; 2019-01-04)
DX: N61.0 Mastitis without abscess (principal); N64.89 Other specified disorders of breast; E78.5 Hyperlipidemia, unspecified; E11.65 Type 2 diabetes mellitus with hyperglycemia; M17.0 Bilateral primary osteoarthritis of knee; E11.39 Type 2 diabetes mellitus with other diabetic ophthalmic complication; H40.9 Unspecified glaucoma; H42 Glaucoma in diseases classified elsewhere; F32.9 Major depressive disorder, single episode, unspecified; F41.9 Anxiety disorder, unspecified; E03.9 Hypothyroidism, unspecified; G25.0 Essential tremor; K21.9 Gastro-esophageal reflux disease without esophagitis; Z90.710 Acquired absence of both cervix and uterus; Z88.8 Allergy status to other drugs, medicaments and biological substances; Z08 Encounter for follow-up examination after completed treatment for malignant neoplasm; Z85.3 Personal history of malignant neoplasm of breast; Z92.3 Personal history of irradiation; Z88.0 Allergy status to penicillin; Z91.041 Radiographic dye allergy status; Z91.018 Allergy to other foods; Z83.3 Family history of diabetes mellitus; Z80.3 Family history of malignant neoplasm of breast; Z80.42 Family history of malignant neoplasm of prostate; Z83.2 Family history of diseases of the blood and blood-forming organs and certain disorders involving the immune mechanism; Z80.0 Family history of malignant neoplasm of digestive organs; Z98.41 Cataract extraction status, right eye; Z98.42 Cataract extraction status, left eye; Z98.51 Tubal ligation status; Z86.14 Personal history of Methicillin resistant Staphylococcus aureus infection; Z79.4 Long term (current) use of insulin
CPT/HCPCS: 36415; 71045; 76942; 80048; 80053; 80202; 81003; 82550; 82565; 83036; 83605; 83880; 84484; 84520; 85025; 85610; 85652; 85730; 86140; 87040; 87070; 87205; 93005; 96365; 99284; A9270-GY; J3370

== ENCOUNTER 2022-05-24 05:47 | Inpatient (IN) ==
[2022-05-24] MEDS ORDERED: Buffered Lidocaine 1% SYRIN 1 ml INTRADERM ONE (06:00)
[2022-05-24] MEDS ORDERED: Lactated Ringers 1000 ml BAG 1,000 ML IV SCH (06:00)
[2022-05-24] MEDS ORDERED: Clindamycin 900 MG/D5W BAG 900 MG/50 ML BAG IVPB ONE (06:11)
[2022-05-24] MEDS ORDERED: ROPIVACAINE 5 MG/ML 30 ML BTL (0.5%) ONE (06:26)
[2022-05-24] MEDS ORDERED: Lidocaine 2% PF 5 ML VIAL ONE (06:26)
[2022-05-24] MEDS ORDERED: Dexamethasone IV 4 MG/ML VIAL 1 ml VIAL ONE (06:26)
[2022-05-24] MEDS ORDERED: Midazolam 2 mg/2 ml VIAL 1 mg/ml 2 ml VIAL (2 mg) ONE ×2 (06:26→07:00)
[2022-05-24] MEDS ORDERED: Propofol 0 MG/0 ML BTL ONE (07:00)
[2022-05-24] MEDS ORDERED: Phenylephrine IV 10 MG/ML 1 ml VIAL ONE (07:00)
[2022-05-24] MEDS ORDERED: fentaNYL 100 mcg/2 ml 50 MCG/ML VIAL ONE ×2 (07:01→11:05)
[2022-05-24] MEDS ORDERED: Bupivacaine 0.5% W/EPI SDV 10 ML VIAL INJ ONE (07:05)
[2022-05-24] MEDS ORDERED: Rocuronium 50 mg VIAL 10 mg/ml 5 ml VIAL (50 mg) ONE (07:13)
[2022-05-24] MEDS ORDERED: Vancomycin 1,000 MG VIAL ONE (07:25)
[2022-05-24] MEDS ORDERED: HYDROmorphone 0.5 MG/0.5 ML SYRINGE ONE ×2 (08:19→08:28)
[2022-05-24] MEDS ORDERED: Ondansetron 4 mg VIAL 2 MG/ML 2 ml VIAL IV PRN ×2 (08:30→10:56)
[2022-05-24] MEDS ORDERED: Naloxone 0.4 mg VIAL 0.4 mg/ml 1 ml VIAL IV PRN (08:30)
[2022-05-24] MEDS ORDERED: hydrALAZINE 20 mg/ml 1 ML Vial IV ONE (08:33)
[2022-05-24] MEDS ORDERED: Morphine 2 MG/ML SYRINGE IV PRN (10:56)
[2022-05-24] MEDS ORDERED: Lactulose 30 ml UDC PO PRN (10:56)
[2022-05-24] MEDS ORDERED: Magnesium Hydroxide LIQ 30 ML UDC PO PRN (10:56)
[2022-05-24] MEDS: fentaNYL 100 mcg/2 ml 50 MCG/ML VIAL IV PRN ×2 (11:07→11:16)
[2022-05-24] MEDS ORDERED: Ondansetron 4 mg VIAL 2 MG/ML 2 ml VIAL ONE (11:18)
[2022-05-24] MEDS: Lactated Ringers 1000 ml BAG 1,000 ML IV SCH ×2 (13:45→23:15)
[2022-05-24] MEDS ORDERED: Dextrose 50% Syringe 50 ml 25 GM/50 ML SYRINGE IV PUSH PRN (14:39)
[2022-05-24] MEDS: Clindamycin 600 MG/D5W BAG 600 MG/50 ML BAG IV SCH (16:09)
[2022-05-24] MEDS ORDERED: Ondansetron 4 mg VIAL 2 MG/ML 2 ml VIAL IV ONE (19:22)
[2022-05-24] MEDS: Insulin GLARGINE 100 un/ml 10 ml VIAL SUBCUT SCH (22:08)
[2022-05-24] MEDS: Magnesium Hydroxide LIQ 30 ML UDC PO SCH (23:36)
[2022-05-25] MEDS: Clindamycin 600 MG/D5W BAG 600 MG/50 ML BAG IV SCH ×2 (00:01→08:11)
[2022-05-25] MEDS: Ondansetron ODT 4 mg TAB 4 MG TAB PO PRN ×2 (04:05→14:38)
[2022-05-25 06:21] LABS: Hematocrit 32 % (35-47); Hemoglobin 10.7 g/dL (12.0-16.0); Mean Platelet Volume 7.1 fL (7.4-10.4); Platelet Count 180 10^3/uL (150-450)
[2022-05-25 06:35] LABS: Calcium 8.3 mg/dL (8.6-10.3); Creatinine, Serum 0.75 mg/dL (0.51-0.95); eGFR CKD-EPI 83.5 (>60)
[2022-05-25] MEDS: Vitamin THERAPEUTIC TAB PO SCH (08:08)
[2022-05-25] MEDS: Magnesium Hydroxide LIQ 30 ML UDC PO SCH ×2 (08:19→22:15)
[2022-05-25] MEDS ORDERED: Prochlorperazine 5 mg/ml 2 ml VIAL (10 mg) IV PRN (09:45)
[2022-05-25] MEDS ORDERED: Enoxaparin 40 MG/0.4 ML SYR SUBCUT SCH (21:00)
[2022-05-25] MEDS: Insulin GLARGINE 100 un/ml 10 ml VIAL SUBCUT SCH (22:07)
[2022-05-26 06:11] LABS: Hematocrit 31 % (35-47); Hemoglobin 10.2 g/dL (12.0-16.0); Mean Platelet Volume 7.4 fL (7.4-10.4); Platelet Count 171 10^3/uL (150-450)
[2022-05-26 07:34] VITALS: BP 125/67
[2022-05-26] MEDS: Magnesium Hydroxide LIQ 30 ML UDC PO SCH (08:39)
[2022-05-26] MEDS: Vitamin THERAPEUTIC TAB PO SCH (08:40)
== END 2022-05-26 11:10 | disposition home or self-care (01) | DRG 470 ==
LOC: AA 05:47 → OBSVTOIN 05:47 → INTOOBSV 05:47 → AA 05:50 → SSU 10:56
PROVIDERS: ADMIT Orthopaedic Surgery; ATTEND Orthopaedic Surgery